=== PATIENT | male | born 1945 | race Caucasian/White ===

== ENCOUNTER 2017-05-18 14:53 | Inpatient (IN) ==
[2017-05-18 16:32] LABS: Basophils % 0.7 % (0.0-0.8); Eosinophils # 0.2 10*3/uL (0.0-0.87); Eosinophils % 3.4 % (0.00-10.9); Hematocrit 35.1 VOL% (42.0-52.0); Hemoglobin 12.5 GM/DL (14.0-18.0); Immature Granulocytes % 0.5 %; Immature Granulocytes Absolute 0.03 #; Lymphocytes % 36.1 % (21.2-54.2); Mean Corpuscular HGB Conc 35.6 GM/DL (32-36); Mean Corpuscular Hemoglobin 33 PG (27-34); Mean Corpuscular Volume 92.4 FL (87-102); Mean Platelet Volume 9.9 FL (9.6-12.0); Monocytes # 0.8 10*3/uL (0.11-0.8); Monocytes % 13.3 % (1.7-12.7); Neutrophils # 2.6 10*3/uL (1.4-7.4); Platelet Count 147 T/CUMM (130-400); Red Cell Distribution Width 15.1 % (9.3-17.3); White Blood Count 5.7 T/CUMM (4-12)
[2017-05-18 16:43] LABS: INR 3.7
--- NOTE | 2017-05-18 16:51 | CT Report ---
CT abdomen pelvis wo con Indication: Right-sided abdominal pain. History of diverticulosis. Comparison: None. Technique: CT of the abdomen and pelvis was performed without administration of intravenous contrast. The CT examination was performed using one or more of the following dose reduction techniques: Automatic exposure control, adjustment of the mA and kV according to patient size, use of acute or iterative reconstruction techniques. Findings: Lower chest: No acute findings are noted within the lower chest. Liver: The liver demonstrates no evidence of focal hepatic mass or evidence of acute pathology. Gallbladder: Large calcified gallstone measuring 13 mm is demonstrated within the neck of the gallbladder. No specific features of cholecystitis appear to be associated. Small dependent calcification is noted within the distal common bile duct image #60. This measures 1 to 2 mm in size and could reflect evidence of choledocholithiasis. Spleen: Spleen demonstrates no significant abnormality. Pancreas: Pancreas demonstrates no significant abnormality. Adrenal glands: The adrenal glands demonstrate no significant abnormalities. Kidneys: Numerous bilateral punctate calcifications are demonstrated compatible with nonobstructing nephroliths. These measure from 2 to 4 mm in size. Additional renovascular calcifications are present bilaterally. Adjacent the right UVJ there is a tiny focus of increased attenuation measuring approximately millimeter the could reflect recently passed renal stone. Correlation with urinalysis may be useful. Aorta: Moderately advanced diffuse intimal calcification of the aorta and iliac arteries is present. Inferior vena cava: Inferior vena cava is normal in appearance. Lymph nodes: No adenopathy is noted within the abdomen or pelvis. Stomach and bowel: The appearance of the stomach, duodenum, small bowel, and large bowel suggests no acute findings. No significant diverticular disease can be identified. Intrapelvic contents: No acute findings are noted within the pelvis. Osseous structures: Facet arthropathy is demonstrated bilaterally within the lower lumbar spine. No acute osseous findings are demonstrated. Soft tissues and musculature: Soft tissues and muscles show the body wall demonstrate sequelae of previous midline ciliotomy. No acute findings are suggested. Impression: 1. There is a tiny focus of increased attenuation lying adjacent the right UVJ within the urinary bladder. This possibly reflects a tiny recently passed ureteral stone versus small punctate calcification of the bladder wall. 2. Multiple bilateral nephroliths are present. 3. No diverticulosis is identified. 4. Cholelithiasis is present without specific features of cholecystitis. 05/18/2017 4:44 PM PROCEDURE INTERPRETED AT [facility] DEPARTMENT OF RADIOLOGY Final Report Signed by: Dr. Braxton Arellano
[2017-05-18 16:52] LABS: PT Patient Result 42.2 SECS
--- NOTE | 2017-05-18 16:52 | XRay Report ---
XR chest 1V portable Indication: Shortness of breath Comparison: Chest x-ray 11/01/2016 Technique: Portable AP chest was performed. Findings: The heart is borderline in size. Previous sternotomy is demonstrated. Pulmonary vasculature demonstrates no specific abnormality. Hilar structures demonstrate fairly symmetric appearance. The lungs appear clear. Bones and soft tissues demonstrate no evidence of acute pathology. Impression: 1. No evidence of acute pathology. 05/18/2017 4:49 PM PROCEDURE INTERPRETED AT [facility] DEPARTMENT OF RADIOLOGY Final Report Signed by: Dr. Braxton Arellano
[2017-05-18 16:56] LABS: Albumin 3.8 G/DL (3.4-5.0); Bilirubin,Total 0.4 MG/DL (0.2-1.0); Calcium 9.2 MG/DL (8.5-10.1); Magnesium 2.1 MG/DL (1.8-2.4); Osmolality,Calculated 291.3 MOS/KG (273-304); Potassium 4.4 MMOL/L (3.5-5.1); Total Protein 7.5 G/DL (6.4-8.3)
[2017-05-18 17:11] LABS: Apearance,Urine CLEAR (Clear); Bilirubin,Urine Negative (Negative); Blood, Urine Negative (Negative); Glucose,Urine (UA) Negative (Negative); Hyaline Casts,Urine 1 /LPF (0-3); Ketones,Urine Negative (Negative); Nitrite,Urine Negative (Negative); Protein,Urine Negative; RBC,Urine <1 /HPF (0-4); Squamous Epithelial Cell,Urine Occasional /HPF (0-10); Urine Color Yellow (Yellow); Urine Specific Gravity 1.014 (1.001-1.035); Urine Urobilinogen < 2.0 EU/DL (0.2-1.0); WBC,Urine 1 /HPF (0-6)
--- NOTE | 2017-05-18 17:29 | Emergency Department Note ---
Suzanna Sarkar Mantricia, am scribing for, and in the presence of, Cheikh Brasher MD 15:53. Anshu Sarkar Phillip K, MD, personally performed the services described in this documentation, ascribed by Ian Briseno in my presence, and it is both accurate and complete 729 . Arrival - Arrival Chief Complaint: GI Bleed/Rectal Stated Complaint: GI bleed/stomach swelling ED Nursing Triage Note: c/o bright red rectal bleeding. c/o back and abd pain. PT was drawn about 0800 this am and it was 3 Mode of Arrival: Ambulatory Limitations: No Limitations Source: Patient - History of Present Illness HPI Narrative: Pt is a 71 y/o white male arriving to ED by EMS with c/o rectal bleeding that onset this morning. He states that he initially experienced abdominal pain and back pain about 2 weeks ago. He denies having any rectal pain or seeing blood in his urine. He does report that he has kidney stones. Pt is currently taking Coumadin and reports a PMHx of Afib, 2 bowel obstructions, and diverticulitis. He has a PSHx of appendicitis and has had a colonoscopy performed by Dr. Carrillo 3 years ago. No other complaints were reported to ED. Onset (ago): hour(s) Consistency: constant Severity: mild Allergies/Adverse Reactions: Allergies Allergy/AdvReac Type Severity Reaction Status Date / Time Iodinated Contrast Media - Allergy Intermediate Chills Verified 12/01/16 09:57 Oral and Home Medications: Home Medications Medication Instructions Recorded Confirmed Type Ascorbic Acid [Vitamin C] 1,000 mg PO DAILY 04/21/16 05/18/17 History Furosemide Tab [Lasix Tab] 40 mg PO DAILY 04/21/16 05/18/17 History Gabapentin Cap/Tab [Neurontin 600 mg PO DAILY 04/21/16 05/18/17 History Cap/Tab] Glimepiride 1 mg PO DAILY 04/21/16 05/18/17 History Insulin Aspart [NovoLOG] 15 unit SUBCUT DAILY PRN 04/21/16 05/18/17 History Isosorbide Mononitrate [Isosorbide 60 mg PO QAM 04/21/16 05/18/17 History Mononitrate ER] Levothyroxine Sodium 100 mcg PO DAILY 04/21/16 05/18/17 History Losartan Potassium 100 mg PO DAILY 04/21/16 05/18/17 History Magnesium Oxide 1,600 mg PO TID 04/21/16 05/18/17 History Omeprazole 20 mg PO BID 04/21/16 05/18/17 History Sertraline HCl 25 mg PO DAILY 04/21/16 05/18/17 History Vitamin E 400 unit PO DAILY 04/21/16 05/18/17 History Warfarin Sodium 5 mg PO DAILY 04/21/16 05/18/17 History dilTIAZem HCl [Cartia XT] 180 mg PO DAILY 04/21/16 05/18/17 History Gemfibrozil 600 mg PO BID 12/01/16 05/18/17 History Metoprolol Succinate Xl [Toprol Xl] 50 mg PO DAILY 12/01/16 05/18/17 History Pravastatin [Pravachol] 40 mg PO BEDTIME 12/01/16 05/18/17 History Spironolactone [Aldactone] 12.5 mg PO DAILY 12/01/16 05/18/17 History Aspirin [Ecotrin] 81 mg PO DAILY 05/18/17 05/18/17 History Glucosamine/D3/Boswellia Jia 1 each PO DAILY 05/18/17 05/18/17 History [Osteo Bi-Flex Tablet] Insulin Detemir [Levemir] 30 unit SUBCUT BEDTIME 05/18/17 05/18/17 History Insulin Glargine [Lantus] 30 unit SUBCUT BEDTIME 05/18/17 05/18/17 History Ranitidine Tab [Zantac Tab] 75 mg PO DAILY 05/18/17 05/18/17 History Review of System - Review of System Constitutional: Absent: chills, diaphoresis, fever Respiratory: Absent: cough Gastrointestinal: Present: abdominal pain. Absent: nausea, vomiting, diarrhea Genitourinary male: Present: other (rectal bleeding). Absent: urgency Musculoskeletal: Present: back pain. Absent: arm pain, leg pain, neck pain Medical,Surgical,& Family Hx - Medical History Cardio: History of: Cardiac Dysrhythmia (HISTORY OF A-FIB), CHF, CAD, Hypertension, [place] No history of: Aneurysm, Cerebrovascular Disease, Congenital Heart Disease, Pacemaker, PVD, Cardiovascular Problems Comment Only: Valvular Heart Disease (? Heart valve - seeing Dr. Burns for this) Psychological: History of: Depression No history of: Anxiety Disorders, ADHD, Behavior Problems, Bipolar Disorder, Previous Suicide Attempt, Psychiatric/Substance Abuse Tx, Schizophrenia, Violent Behavior, Psychiatric Problems Neurology: No history of: Brain Aneurysm, Cerebral Hemorrhage, Cerebrovascular Accident , Cerebral Palsy, Dementia, Migraine, Multiple Sclerosis, Parkinson's Disease, Peripheral Neuropathy, Seizures, TIA, Vertigo, Neurologocal Cancer HEENT: History of: Eye Problem (Wears glasses) No history of: Ear Problem, Dental Problems, Glaucoma, Oral Cancer, HEENT Problems Endocrine: History of: Diabetes Mellitus (IDDM), Dyslipidemia, Thyroid Disorder (TAKES THYROID MEDICINE) No history of: Endocrine Problems Rheumatology: No history of;: Fibromyalgia, Gout, Myasthenia Gravis, Psoriasis, Rheumatoid Arthritis, Sjogrens, Systemic Lupus Erythematosus, Rheumatological Problems Respiratory: History of: Asthma, Obstructive Sleep Apnea (SLEEPS WITH BIPAP), Pneumonia No history of: Bronchitis, COPD, Intubation, Pulmonary Embolism, Pulmonary Hypertension, Lung Cancer, Respiratory Problems Renal: No history of: Renal (Kidney) Cancer, Dialysis, Renal Failure, Renal Problems Genitourinary: History of: Kidney Stones, Prostate Problems No history of: Bladder Problem, Recurring Urinary Tract Infections, Genitourinary Cancer, Problems Gastrointestinal: History of: Bowel Obstruction, Diverticulitis/ Diverticulosis (PRESENT), GERD, Hemorrhoids, Polyps, 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), GI Problems No history of: Clostridium Difficile, Crohn's Disease, Esophageal Varices, Gastrointestinal Bleed, Hematochezia, Hepatitis, Liver Problems, Pancreatitis, Gastrointestinal Cancer Musculoskeletal: History of: Back/Neck Problems (Neck pain; bone spurs), Musculoskeletal Problems (Arthritis) No history of: Amputation, Degenerative Disk Disease, Herniated Disk, Osteoporosis, Musculoskeletal Cancer Hematology: No history of: Blood Transfusion Reaction Other: History of: Cancer (SKIN CANCER), Skin Problems (SKIN CANCER) No history of: Anesthesia Reactions, Anaphylaxis, Eczema, HIV, Malignant Hyperthermia, MRSA, Vancomycin-Resistant Enterococci, Miscellaneous Medical Problems - Surgical History Cardiac Surgeries: Sugical HX of: Cardiac Catheterization (4 CATH IN THE PAST), Cardiac Surgery Patient Denies: Femoral-Popliteal Bypass Graft, Carotid Endarterectomy, Internal Defibrillator, Vascular Access Devices Thoracic Surgeries: Patient denies;: Kidney (Renal Surgery), Lithotripsy, Nephrectomy, Organ Transplant, Lobectomy Neurologic Surgeries: Patient denies: Brain Aneurysm, Cerebral Hemorrhage, Neurologic Surgery HEENT Surgeries: Surgical HX of: Eye Surgery (Cataract removal bilaterally) Patient denies: Carotid Endarterectomy, Thyroid Surgery, Tonsilectomy & Adenoidectomy Abdominal Surgeries: Surgical HX of: Abdominal Surgery, Appendectomy, Colonoscopy, EGD, Hernia Repair (2X AROUND 29 YEARS OLD IN THE PAST) Patient denies: Cholecystectomy (Gallstone), Gastric Bypass Surgery, Splenectomy Reproductive Surgeries: Patient denies;: Cystoscopy, Genitourinary Surgery, Prostate Surgery Orthopedic Surgeries: Patient denies;: Implanted Devices, Orthopedic Surgery, Spinal Surgery, Total Hip Replacement, Total Knee Replacement - Family History Family History: Reports;: Family Anesthesia Reaction (GREAT GRANDCHILD ALLERGIC REACTION), Family Heart Disease (MOTHER, GRANDMOTHER, GRANDFATHER), Family Hypertension (MOTHER), Family Stroke (GRANDFATHER) Denies;: Family Cancer, Family Diabetes (MOTHER SIDE OF FAMILY AND FATHER), Family Psychiatric Problems - Social History Smoking Status: Never smoker Frequency of Alcohol Use: None Type of Drug Use: None Exam Vital Signs: Vital Signs Temperature 98.1 F 05/18/17 15:01 Pulse Rate 79 05/18/17 15:01 Respiratory Rate 18 05/18/17 15:01 Blood Pressure 109/52 05/18/17 15:01 O2 Sat by Pulse Oximetry 98 05/18/17 15:01 - General General appearance: alert, in no apparent distress - Head Head exam: Present: atraumatic, normocephalic, normal inspection - Eye Eye exam: Present: normal appearance, PERRL, EOMI - ENT ENT exam: Present: normal exam, normal oropharynx, mucous membranes moist, TM's normal bilaterally, normal external ear exam - Neck Neck exam: Present: normal inspection, full ROM, trachea midline. Absent: tenderness - Chest Chest inspection: Present: normal inspection, symmetric chest wall rise. Absent : tenderness - Respiratory Respiratory exam: Present: normal lung sounds bilaterally - Cardiovascular Cardiovascular exam: Present: regular rate, irregular rhythm, normal heart sounds - Abdominal Exam Abdominal exam: Present: soft, tenderness (right mid), normal bowel sounds. Absent: distention, guarding, rebound - Rectal Exam Rectal exam: Present: heme (+) stool (grossly ) - Extremities Exam Extremities exam: Present: normal inspection, full ROM, normal capillary refill. Absent: tenderness, pedal edema - Back Exam Back exam: Present: normal inspection, full ROM. Absent: tenderness - Neurological Exam Neurological exam: Present: alert, oriented X3, CN II-XII intact, normal gait, reflexes normal - Psychiatric Psychiatric exam: Present: normal affect, normal mood - Skin Skin exam: Present: warm, dry, intact, normal color Course Course Narrative: Patient discussed with Dr. Sanches. Results - Labs CBC & BMP: 05/18/17 16:14 05/18/17 16:14 Lab Results: I have reviewed the patients labs Labs: Laboratory Tests 05/18/17 05/18/17 05/18/17 16:14 16:14 16:14 Hgb 12.5 L Hct 35.1 L Alexander % (Auto) 13.3 H Chloride 111 H BUN 37 H Creatinine 1.50 H BUN/Creatinine Ratio 24.00 H Glucose 131 H Globulin 3.7 H Albumin/Globulin Ratio 1.0 L Urine Urobilinogen < 2.0 H - Diagnostic Findings Procedure: Chest x-ray: report reviewed by me (No evidence of acute pathology.) , CT Abdomen and Pelvis: report reviewed by me (1. There is a tiny focus of increased attenuation lying adjacent the right UVJ within the urinary bladder. This possibly reflects a tiny recently passed ureteral stone versus small punctate calcification of the bladder wall. 2. Multiple bilateral nephroliths are present. 3. No diverticulosis is identified. 4. Cholelithiasis is present without specific features of cholecystitis. ) Disposition Clinical Impression: Lower gastrointestinal hemorrhage, Possible right ureterolithiasis, Cholelithiasis, Probable diverticular bleed Case discussed with: patient, patient's family Disposition: Still a Patient Condition: Guarded
[2017-05-18] MEDS ORDERED: ONDANSETRON 4 MG/2 ML VIAL IV PRN (22:29)
[2017-05-18] MEDS ORDERED: ACETAMINOPHEN 325 MG TABLET PO PRN (22:29)
[2017-05-19] MEDS: DOCUSATE SODIUM 100 MG CAPSULE PO SCH ×3 (00:23→20:39)
[2017-05-19 01:43] LABS: Hematocrit 31.9 VOL% (42.0-52.0); Hemoglobin 11.4 GM/DL (14.0-18.0)
--- NOTE | 2017-05-19 02:28 | EKG Report ---
Stationary ECG Study [facility] ER Test Date: 05/18/2017 6:40:31 PM Pat Name: BASIL CASTANON Department: Room: 441 Gender: M [employer] Supervisor: : 1945 Requested by: Cheikh Kaiser Order Number: [id number] Reading MD: AGUSTINA PAUL Intervals [place] Rate: 62 P: 999 NM: 0 QRS: 56 QRSD: 119 T: 38 QT: 388 QTc: 393 Interpretive Statements ATRIAL FIBRILLATION MODERATE INTRAVENTRICULAR CONDUCTION DELAY ABNORMAL RHYTHM ECG Electronically Signed On 05-19-17 05:29:41 CDT by AGUSTINA PAUL [email or web address]
[2017-05-19 05:19] LABS: Hematocrit 32.8 VOL% (42.0-52.0); Hemoglobin 11.5 GM/DL (14.0-18.0)
[2017-05-19] MEDS ORDERED: INSULIN LISPRO 100 UNIT/ML SUBCUT PRN (07:58)
--- NOTE | 2017-05-19 08:02 | Family Practice History&Phys ---
Assessment and Plan (1) Lower gastrointestinal hemorrhage Status: Acute Assessment and plan: 05/19/2017: Dr. Carrillo has been consulted. Serial hematocrits have been ordered. He is no longer bleeding. Current Visit: Yes (2) Chronic anticoagulation Status: Acute Assessment and plan: 05/19/2017: Patient's Coumadin will be held. Is no longer bleeding so I do not think he needs reversal at this time. Current Visit: Yes History of Present Illness Chief complaint: Rectal bleeding History of present illness: Mr. Smith is a 71 year old male Patient 71-year-old gentleman presented emergency room day of admission with history of rectal bleeding. Patient told me he had 4 bloody bowel movements yesterday beginning yesterday morning. He had no syncope or presyncope associated with this. Patient states he initially had no abdominal pain but then noticed he had some pain in his rectum later yesterday afternoon. He has not had any fever or chills associated with this. Patient does have a problem with constipation and tells me he has to strain to have a bowel movement. He told me that the blood was bright red but he also thought he saw some dark blood as well. He does have a previous history of peptic ulcer disease. He denies any associated chest pain, shortness of breath or perceived palpitations. He denies any abdominal pain at present states she has not had any further bleeding since admission. Home Medications Medication Instructions Recorded Confirmed Type Ascorbic Acid [Vitamin C] 1,000 mg PO DAILY 04/21/16 05/19/17 History Furosemide Tab [Lasix Tab] 40 mg PO DAILY 04/21/16 05/19/17 History Gabapentin Cap/Tab [Neurontin 600 mg PO DAILY 04/21/16 05/19/17 History Cap/Tab] Glimepiride 1 mg PO DAILY 04/21/16 05/19/17 History Insulin Aspart [NovoLOG] 15 unit SUBCUT DAILY PRN 04/21/16 05/19/17 History Isosorbide Mononitrate [Isosorbide 60 mg PO QAM 04/21/16 05/19/17 History Mononitrate ER] Levothyroxine Sodium 100 mcg PO DAILY 04/21/16 05/19/17 History Losartan Potassium 100 mg PO DAILY 04/21/16 05/19/17 History Magnesium Oxide 1,600 mg PO TID 04/21/16 05/19/17 History Omeprazole 20 mg PO BID 04/21/16 05/19/17 History Sertraline HCl 25 mg PO DAILY 04/21/16 05/19/17 History Vitamin E 400 unit PO DAILY 04/21/16 05/19/17 History Warfarin Sodium 5 mg PO DAILY 04/21/16 05/19/17 History dilTIAZem HCl [Cartia XT] 180 mg PO DAILY 04/21/16 05/19/17 History Gemfibrozil 600 mg PO BID 12/01/16 05/19/17 History Metoprolol Succinate Xl [Toprol Xl] 50 mg PO DAILY 12/01/16 05/19/17 History Pravastatin [Pravachol] 40 mg PO BEDTIME 12/01/16 05/19/17 History Spironolactone [Aldactone] 12.5 mg PO DAILY 12/01/16 05/19/17 History Aspirin [Ecotrin] 81 mg PO DAILY 05/18/17 05/19/17 History Glucosamine/D3/Boswellia Jia 1 each PO DAILY 05/18/17 05/19/17 History [Osteo Bi-Flex Tablet] Insulin Detemir [Levemir] 30 unit SUBCUT BEDTIME 05/18/17 05/19/17 History Insulin Glargine [Lantus] 30 unit SUBCUT BEDTIME 05/18/17 05/19/17 History Ranitidine Tab [Zantac Tab] 75 mg PO DAILY 05/18/17 05/19/17 History Allergies Allergy/AdvReac Type Severity Reaction Status Date / Time Iodinated Contrast Media - Allergy Intermediate Chills Verified 12/01/16 09:57 Oral and - Constitutional Constitutional: Absent: chills, fatigue, fever(s), weakness - EENT Eyes: Absent: blurry vision, loss of vision Ears: Absent: decreased hearing, ear pain Nose, mouth and throat: Absent: dysphagia, nasal congestion, sinus pressure, sore throat - Cardiovascular Cardiovascular: Absent: chest pain at rest, dyspnea, dyspnea on exertion - Respiratory Respiratory: Absent: hemoptysis, dyspnea on exertion, wheezing - Gastrointestinal Gastrointestinal: Present: dyspepsia, hematochezia, melena. Absent: abdominal pain, bloating, diarrhea, hematemesis, odynophagia, vomiting - Genitourinary Genitourinary: Absent: dysuria, flank pain, urinary frequency - Musculoskeletal Musculoskeletal: Absent: arthralgias, back pain - Neurological Neurological: Absent: confusion, focal weakness, numbness, paresthesias - Psychiatric Psychiatric: Absent: anxiety, confusion - Endocrine Endocrine: Absent: fatigue, polydipsia, polyphagia - Hematologic/Lymphatic Hematologic/Lymphatic: Present: easy bleeding. Absent: easy bruising Medical,Surgical,& Family Hx - Medical History Cardio: History of: Cardiac Dysrhythmia (HISTORY OF A-FIB), CHF, CAD, Hypertension, [place] No history of: Aneurysm, Cerebrovascular Disease, Congenital Heart Disease, Pacemaker, PVD, Cardiovascular Problems Comment Only: Valvular Heart Disease (? Heart valve - seeing Dr. Burns for this) Psychological: History of: Depression No history of: Anxiety Disorders, ADHD, Behavior Problems, Bipolar Disorder, Previous Suicide Attempt, Psychiatric/Substance Abuse Tx, Schizophrenia, Violent Behavior, Psychiatric Problems Neurology: No history of: Brain Aneurysm, Cerebral Hemorrhage, Cerebrovascular Accident , Cerebral Palsy, Dementia, Migraine, Multiple Sclerosis, Parkinson's Disease, Peripheral Neuropathy, Seizures, TIA, Vertigo, Neurologocal Cancer HEENT: History of: Eye Problem (Wears glasses) No history of: Ear Problem, Dental Problems, Glaucoma, Oral Cancer, HEENT Problems Endocrine: History of: Diabetes Mellitus (IDDM), Dyslipidemia, Thyroid Disorder (TAKES THYROID MEDICINE) No history of: Endocrine Problems Rheumatology: No history of;: Fibromyalgia, Gout, Myasthenia Gravis, Psoriasis, Rheumatoid Arthritis, Sjogrens, Systemic Lupus Erythematosus, Rheumatological Problems Respiratory: History of: Asthma, Obstructive Sleep Apnea (SLEEPS WITH BIPAP), Pneumonia No history of: Bronchitis, COPD, Intubation, Pulmonary Embolism, Pulmonary Hypertension, Lung Cancer, Respiratory Problems Renal: No history of: Renal (Kidney) Cancer, Dialysis, Renal Failure, Renal Problems Genitourinary: History of: Kidney Stones, Prostate Problems No history of: Bladder Problem, Recurring Urinary Tract Infections, Genitourinary Cancer, Problems Gastrointestinal: History of: Bowel Obstruction, Diverticulitis/ Diverticulosis (PRESENT), GERD, Hemorrhoids, Polyps, 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), GI Problems No history of: Clostridium Difficile, Crohn's Disease, Esophageal Varices, Gastrointestinal Bleed, Hematochezia, Hepatitis, Liver Problems, Pancreatitis, Gastrointestinal Cancer Musculoskeletal: History of: Back/Neck Problems (Neck pain; bone spurs), Musculoskeletal Problems (Arthritis) No history of: Amputation, Degenerative Disk Disease, Herniated Disk, Osteoporosis, Musculoskeletal Cancer Hematology: No history of: Blood Transfusion Reaction Other: History of: Cancer (SKIN CANCER), Skin Problems (SKIN CANCER) No history of: Anesthesia Reactions, Anaphylaxis, Eczema, HIV, Malignant Hyperthermia, MRSA, Vancomycin-Resistant Enterococci, Miscellaneous Medical Problems - Surgical History Cardiac Surgeries: Sugical HX of: Cardiac Catheterization (4 CATH IN THE PAST), Cardiac Surgery Patient Denies: Femoral-Popliteal Bypass Graft, Carotid Endarterectomy, Internal Defibrillator, Vascular Access Devices Thoracic Surgeries: Patient denies;: Kidney (Renal Surgery), Lithotripsy, Nephrectomy, Organ Transplant, Lobectomy Neurologic Surgeries: Patient denies: Brain Aneurysm, Cerebral Hemorrhage, Neurologic Surgery HEENT Surgeries: Surgical HX of: Eye Surgery (Cataract removal bilaterally) Patient denies: Carotid Endarterectomy, Thyroid Surgery, Tonsilectomy & Adenoidectomy Abdominal Surgeries: Surgical HX of: Abdominal Surgery, Appendectomy, Colonoscopy, EGD, Hernia Repair (2X AROUND 29 YEARS OLD IN THE PAST) Patient denies: Cholecystectomy (Gallstone), Gastric Bypass Surgery, Splenectomy Reproductive Surgeries: Patient denies;: Cystoscopy, Genitourinary Surgery, Prostate Surgery Orthopedic Surgeries: Patient denies;: Implanted Devices, Orthopedic Surgery, Spinal Surgery, Total Hip Replacement, Total Knee Replacement - Family History Family History: Reports;: Family Anesthesia Reaction (GREAT GRANDCHILD ALLERGIC REACTION), Family Heart Disease (MOTHER, GRANDMOTHER, GRANDFATHER), Family Hypertension (MOTHER), Family Stroke (GRANDFATHER) Denies;: Family Cancer, Family Diabetes (MOTHER SIDE OF FAMILY AND FATHER), Family Psychiatric Problems - Social History Smoking Status: Never smoker Frequency of Alcohol Use: None Type of Drug Use: None Exam - Constitutional Vitals: Period Temp Pulse Resp BP Sys/Spann Pulse Ox Last 24 Hr 97.5 F-98.1 F 45-86 10-25 93-154/50-73 95-98 Exam: General: Objective patient is a well-developed white male in no acute distress. He is able to give a good history and is his usual garrulous self. HEENT: Pupils equal and reactive to light. Patent nares and airway Neck: No meningismus, adenopathy, thyromegaly. There are no auscultated carotid bruits. Cardiovascular: Regular rhythm. No murmurs or gallops Chest: Clear to auscultation without rales rhonchi wheezes. Abdomen: Soft nontender to palpation No masses, rebound, guarding or tenderness. Neuro: Cranial nerves intact and DTRs and strength symmetric in all extremities. Dermatologic: No evidence of abnormal lesions or masses. Musculoskeletal: There is no joint swelling or tenderness or deformity. Extremities: Is no calf swelling or tenderness. Results - Labs CBC & BMP: 05/19/17 04:41 05/18/17 16:14 Lab Results: I have reviewed the past 24 hour labs Quality Measures - Stroke Symptom Onset Unknown: No
[2017-05-19] MEDS ORDERED: PANTOPRAZOLE 40 MG TABLET PO SCH (09:00)
[2017-05-19] MEDS ORDERED: GABAPENTIN 600 MG TABLET PO SCH (09:00)
--- NOTE | 2017-05-19 09:29 | Gastrointestinal Consult Note ---
<Amber Apodaca - Last Filed: 05/19/17 09:20> Assessment and Plan (1) Rectal bleed Status: Acute Assessment and plan: 05/19-sudden onset of bright red rectal bleeding w/o abdominal pain or other associated symptoms. INR 3.7 with last dose Coumadin Wednesday. CT of abdomen noted as below. Endoscopy noted as below. Monitor serial HH. Plan endoscopy to further evaluate once INR is 1.8 or less. Plan and addendum to follow by Dr Carrillo. Current Visit: Yes History of Present Illness Chief complaint: Rectal bleed History of present illness: Mr. Smith is a 71 year old male who was admitted to the hospital on yesterday following onset of rectal bleeding. Patient is a fairly good historian however is at bedside and contributes to information. Chart review also done. Patient states that approximately 2 weeks ago he began having some lower back pain primarily on the right flank. States that the pain seemed to be exacerbated by ambulation and walking uphill. He states that on yesterday the pain began to radiate around to his lower abdomen and down into his groin. He states that he has a history of constipation and has to strain most of the time with a bowel movement however on yesterday, following a bout of constipation, he had a large solid stool which he states require considerable amount of straining which was then followed by loose stools. Patient noted at that time that he had a moderate amount of bright red blood noted in the commode and mixed in with the stool. He also states he has some dark red clots mixed with this as well. He does recall but over the last several weeks he is noted that his stools have become darker in color than from his baseline. He does have a history of hemorrhoids and a history of varying episodes of constipation and diarrhea over the last several years. He states that he has never had a rectal bleed in the past. Patient states that he did sided to come to the emergency room yesterday afternoon for further evaluation. He denies any recent weight loss. Patient denies any NSAID use. He denies any dysphagia, increased GERD, or dyspepsia. Denies any associated nausea or vomiting. Patient does take Coumadin for history of atrial fibrillation and on admission INR was noted to be elevated at 3.7. He states his last dose of Coumadin was on Marc night. Patient's last EGD was in September of last year with findings of GERD and duodenitis. He is unable to recall exactly when his last colonoscopy was but states that he was due coming up this year for repeat. He cannot recall the findings of his last colonoscopy as well. On admission he had a CT of abdomen without contrast with no acute findings noted however mention of possible passed ureteral stone, multiple bilateral nephroliths, cholelithiasis without cholecystitis and no mention of diverticulosis or diverticulitis. H/H . Home Medications Medication Instructions Recorded Confirmed Type Ascorbic Acid [Vitamin C] 1,000 mg PO DAILY 04/21/16 05/19/17 History Furosemide Tab [Lasix Tab] 40 mg PO DAILY 04/21/16 05/19/17 History Gabapentin Cap/Tab [Neurontin 600 mg PO DAILY 04/21/16 05/19/17 History Cap/Tab] Glimepiride 1 mg PO DAILY 04/21/16 05/19/17 History Insulin Aspart [NovoLOG] 15 unit SUBCUT DAILY PRN 04/21/16 05/19/17 History Isosorbide Mononitrate [Isosorbide 60 mg PO QAM 04/21/16 05/19/17 History Mononitrate ER] Levothyroxine Sodium 100 mcg PO DAILY 04/21/16 05/19/17 History Losartan Potassium 100 mg PO DAILY 04/21/16 05/19/17 History Magnesium Oxide 1,600 mg PO TID 04/21/16 05/19/17 History Omeprazole 20 mg PO BID 04/21/16 05/19/17 History Sertraline HCl 25 mg PO DAILY 04/21/16 05/19/17 History Vitamin E 400 unit PO DAILY 04/21/16 05/19/17 History Warfarin Sodium 5 mg PO DAILY 04/21/16 05/19/17 History dilTIAZem HCl [Cartia XT] 180 mg PO DAILY 04/21/16 05/19/17 History Gemfibrozil 600 mg PO BID 12/01/16 05/19/17 History Metoprolol Succinate Xl [Toprol Xl] 50 mg PO DAILY 12/01/16 05/19/17 History Pravastatin [Pravachol] 40 mg PO BEDTIME 12/01/16 05/19/17 History Spironolactone [Aldactone] 12.5 mg PO DAILY 12/01/16 05/19/17 History Aspirin [Ecotrin] 81 mg PO DAILY 05/18/17 05/19/17 History Glucosamine/D3/Boswellia Jia 1 each PO DAILY 05/18/17 05/19/17 History [Osteo Bi-Flex Tablet] Insulin Detemir [Levemir] 30 unit SUBCUT BEDTIME 05/18/17 05/19/17 History Insulin Glargine [Lantus] 30 unit SUBCUT BEDTIME 05/18/17 05/19/17 History Ranitidine Tab [Zantac Tab] 75 mg PO DAILY 05/18/17 05/19/17 History Celecoxib [Celebrex] 200 mg PO DAILY 05/19/17 05/19/17 History Allergies Allergy/AdvReac Type Severity Reaction Status Date / Time Iodinated Contrast Media - Allergy Intermediate Chills Verified 12/01/16 09:57 Oral and Medical,Surgical,& Family Hx - Medical History Cardio: History of: Cardiac Dysrhythmia (HISTORY OF A-FIB), CHF, CAD, Hypertension, NE No history of: Aneurysm, Cerebrovascular Disease, Congenital Heart Disease, Pacemaker, PVD, Cardiovascular Problems Comment Only: Valvular Heart Disease (? Heart valve - seeing Dr. Burns for this) Psychological: History of: Depression No history of: Anxiety Disorders, ADHD, Behavior Problems, Bipolar Disorder, Previous Suicide Attempt, Psychiatric/Substance Abuse Tx, Schizophrenia, Violent Behavior, Psychiatric Problems Neurology: No history of: Brain Aneurysm, Cerebral Hemorrhage, Cerebrovascular Accident , Cerebral Palsy, Dementia, Migraine, Multiple Sclerosis, Parkinson's Disease, Peripheral Neuropathy, Seizures, TIA, Vertigo, Neurologocal Cancer HEENT: History of: Eye Problem (Wears glasses) No history of: Ear Problem, Dental Problems, Glaucoma, Oral Cancer, HEENT Problems Endocrine: History of: Diabetes Mellitus (IDDM), Dyslipidemia, Thyroid Disorder (TAKES THYROID MEDICINE) No history of: Endocrine Problems Rheumatology: No history of;: Fibromyalgia, Gout, Myasthenia Gravis, Psoriasis, Rheumatoid Arthritis, Sjogrens, Systemic Lupus Erythematosus, Rheumatological Problems Respiratory: History of: Asthma, Obstructive Sleep Apnea (SLEEPS WITH BIPAP), Pneumonia No history of: Bronchitis, COPD, Intubation, Pulmonary Embolism, Pulmonary Hypertension, Lung Cancer, Respiratory Problems Renal: No history of: Renal (Kidney) Cancer, Dialysis, Renal Failure, Renal Problems Genitourinary: History of: Kidney Stones, Prostate Problems No history of: Bladder Problem, Recurring Urinary Tract Infections, Genitourinary Cancer, Problems Gastrointestinal: History of: Bowel Obstruction, Diverticulitis/ Diverticulosis (PRESENT), GERD, Hemorrhoids, Polyps, 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), GI Problems No history of: Clostridium Difficile, Crohn's Disease, Esophageal Varices, Gastrointestinal Bleed, Hematochezia, Hepatitis, Liver Problems, Pancreatitis, Gastrointestinal Cancer Musculoskeletal: History of: Back/Neck Problems (Neck pain; bone spurs), Musculoskeletal Problems (Arthritis) No history of: Amputation, Degenerative Disk Disease, Herniated Disk, Osteoporosis, Musculoskeletal Cancer Hematology: No history of: Blood Transfusion Reaction Other: History of: Cancer (SKIN CANCER), Skin Problems (SKIN CANCER) No history of: Anesthesia Reactions, Anaphylaxis, Eczema, HIV, Malignant Hyperthermia, MRSA, Vancomycin-Resistant Enterococci, Miscellaneous Medical Problems - Surgical History Cardiac Surgeries: Sugical HX of: Cardiac Catheterization (4 CATH IN THE PAST), Cardiac Surgery Patient Denies: Femoral-Popliteal Bypass Graft, Carotid Endarterectomy, Internal Defibrillator, Vascular Access Devices Thoracic Surgeries: Patient denies;: Kidney (Renal Surgery), Lithotripsy, Nephrectomy, Organ Transplant, Lobectomy Neurologic Surgeries: Patient denies: Brain Aneurysm, Cerebral Hemorrhage, Neurologic Surgery HEENT Surgeries: Surgical HX of: Eye Surgery (Cataract removal bilaterally) Patient denies: Carotid Endarterectomy, Thyroid Surgery, Tonsilectomy & Adenoidectomy Abdominal Surgeries: Surgical HX of: Abdominal Surgery, Appendectomy, Colonoscopy, EGD, Hernia Repair (2X AROUND 30 YEARS OLD IN THE PAST) Patient denies: Cholecystectomy (Gallstone), Gastric Bypass Surgery, Splenectomy Reproductive Surgeries: Patient denies;: Cystoscopy, Genitourinary Surgery, Prostate Surgery Orthopedic Surgeries: Patient denies;: Implanted Devices, Orthopedic Surgery, Spinal Surgery, Total Hip Replacement, Total Knee Replacement - Family History Family History: Reports;: Family Anesthesia Reaction (GREAT GRANDCHILD ALLERGIC REACTION), Family Heart Disease (MOTHER, GRANDMOTHER, GRANDFATHER), Family Hypertension (MOTHER), Family Stroke (GRANDFATHER) Denies;: Family Cancer, Family Diabetes (MOTHER SIDE OF FAMILY AND FATHER), Family Psychiatric Problems - Social History Smoking Status: Never smoker Frequency of Alcohol Use: None Type of Drug Use: None 12 point system: reviewed and no additional remarkable complaints except as stated - Constitutional Constitutional: Present: as per HPI - EENT Eyes: Present: as per HPI Ears: Present: as per HPI Nose, mouth and throat: Present: as per HPI - Cardiovascular Cardiovascular: Present: as per HPI - Respiratory Respiratory: Present: as per HPI - Gastrointestinal Gastrointestinal: Present: as per HPI, abdominal pain (Lower abdominal), heartburn, hematochezia, melena - Genitourinary Genitourinary: Present: as per HPI - Musculoskeletal Musculoskeletal: Present: as per HPI, back pain - Neurological Neurological: Present: as per HPI - Psychiatric Psychiatric: Present: as per HPI - Endocrine Endocrine: Present: as per HPI - Hematologic/Lymphatic Hematologic/Lymphatic: Present: as per HPI Exam - Constitutional Vitals: Period Temp Pulse Resp BP Sys/Spann Pulse Ox Last 24 Hr 97.5 F-98.1 F 43-86 10-25 93-154/50-79 94-98 General appearance: normal weight, no acute distress - Head Head exam: Present: normal inspection, normocephalic - Eye Eye exam: Present: other (Lids and conjunctivae are unremarkable). Absent: scleral icterus - ENT ENT exam: Present: normal exam, normal oropharynx - Neck Neck exam: Present: normal inspection - Respiratory Respiratory exam: Present: clear to auscultation bilaterally. Absent: rales, rhonchi, wheezes - Cardiovascular Cardiovascular exam: Present: regular rate and rhythm. Absent: diastolic murmur , JVD, systolic murmur - GI/Abdominal GI/Abdominal exam: Present: normal bowel sounds, soft. Absent: ascites, distended, mass, organomegaly, tenderness - Extremities Exam Extremities exam: Present: normal inspection, full ROM - Back Exam Back exam: Present: normal inspection - Neurological Exam Neurological exam: Present: alert, oriented X3 - Psychiatric Psychiatric exam: Present: normal affect, normal mood - Skin Skin exam: Present: normal color, warm, dry Results - Labs CBC & BMP: 05/19/17 04:41 05/18/17 16:14 Lab Results: I have reviewed the past 24 hour labs Quality Measures - Stroke Symptom Onset Unknown: No <Kenny Carrillo - Last Filed: 05/19/17 19:31> History of Present Illness History of present illness: Mr. Smith is a 71 year old male Exam - Constitutional Vitals: Period Temp Pulse Resp BP Sys/Spann Pulse Ox Last 24 Hr 97.3 F-97.7 F 43-92 19-20 117-154/65-92 94-98 Results - Labs CBC & BMP: 05/19/17 16:24 05/18/17 16:14
[2017-05-19 10:06] LABS: Hematocrit 35.5 VOL% (42.0-52.0); Hemoglobin 12.6 GM/DL (14.0-18.0)
[2017-05-19] MEDS: GLUCOSAMINE 500 MG TABLET PO SCH (10:17)
[2017-05-19] MEDS: SERTRALINE 25 MG TABLET PO SCH (10:17)
[2017-05-19] MEDS: GLIMEPIRIDE 2 MG TABLET PO SCH (10:17)
[2017-05-19] MEDS: METOPROLOL SUCCINATE XL 50 MG TABLET PO SCH (10:18)
[2017-05-19] MEDS: LEVOTHYROXINE 100 MCG TABLET PO SCH (10:19)
[2017-05-19] MEDS: FUROSEMIDE 40 MG TABLET PO SCH (10:19)
[2017-05-19] MEDS: PANTOPRAZOLE 40 MG TABLET PO SCH ×2 (10:20→20:40)
[2017-05-19] MEDS: SPIRONOLACTONE 25 MG TABLET PO SCH (10:21)
[2017-05-19] MEDS: VITAMIN E 400 UNIT CAPSULE PO SCH (10:22)
[2017-05-19] MEDS: ASCORBIC ACID 500 MG TABLET PO SCH (10:22)
[2017-05-19] MEDS: MAGNESIUM OXIDE 400 MG TABLET PO SCH ×3 (10:23→20:39)
[2017-05-19] MEDS: ISOSORBIDE MONONITRATE 60 MG TABLET PO SCH (10:24)
[2017-05-19] MEDS: DILTIAZEM CD 180 MG CAPSULE PO SCH (10:26)
[2017-05-19] MEDS: GEMFIBROZIL 600 MG TABLET PO SCH ×2 (10:26→20:39)
[2017-05-19] MEDS: LOSARTAN 50 MG TABLET PO SCH (10:27)
[2017-05-19] MEDS: FAMOTIDINE 20 MG TABLET PO SCH (10:39)
[2017-05-19] MEDS: CELECOXIB 200 MG CAPSULE PO SCH (15:10)
[2017-05-19 16:33] LABS: Hematocrit 35.5 VOL% (42.0-52.0); Hemoglobin 12.4 GM/DL (14.0-18.0)
[2017-05-19] MEDS: GABAPENTIN 300 MG CAPSULE PO SCH ×2 (18:16→20:40)
[2017-05-19] MEDS: PRAVASTATIN 40 MG TABLET PO SCH (20:40)
[2017-05-20 00:01] LABS: Hematocrit 34.5 VOL% (42.0-52.0); Hemoglobin 12.4 GM/DL (14.0-18.0)
[2017-05-20] MEDS: INSULIN GLARGINE 100 UNIT/ML SUBCUT SCH ×2 (00:02→23:24)
[2017-05-20] MEDS: LEVOTHYROXINE 100 MCG TABLET PO SCH (06:21)
[2017-05-20] MEDS: NEOMYCIN/POLYMYXIN/BACITRACIN OINT 0.9 GM PACK TOP SCH ×3 (06:21→22:00)
[2017-05-20 06:36] LABS: INR 1.7; PT Patient Result 18.5 SECS
--- NOTE | 2017-05-20 07:29 | Family Practice Progress Note ---
Family Practice - PN: Subj Interval history: Patient is doing well this morning states he is not having any abdominal pain. He did have some bloody bowel movements yesterday again. He denies any rectal pain this morning. He is not having any nausea vomiting or diarrhea. He is scheduled for EGD today and C scope tomorrow. His INR is down to 1.7 and his hematocrit remained stable. Exam (Progress Note) - Constitutional Vitals: Period Temp Pulse Resp BP Sys/Spann Pulse Ox Last 24 Hr 97.0 F-99.1 F 42-92 18-20 115-135/54-92 94-98 Exam: Objectively well-developed white male no acute distress sitting up in chair and watching television. He denies any abdominal pain and looks comfortable at rest. Cardiovascular: Heart rates regular without murmurs or gallops. Respiratory: Lungs clear to auscultation bilaterally. Abdomen: Abdomen soft and nontender to palpation. Results - Labs CBC & BMP: 05/19/17 23:45 05/18/17 16:14 Lab Results: I have reviewed the past 24 hour labs Assessment and Plan (1) Lower gastrointestinal hemorrhage Status: Acute Assessment and plan: 05/19/2017: Dr. Carrillo has been consulted. Serial hematocrits have been ordered. He is no longer bleeding. 05/20/2017: Patient continues to have bleeding. EGD today C scope in the morning. Current Visit: Yes (2) Chronic anticoagulation Status: Acute Assessment and plan: 05/19/2017: Patient's Coumadin will be held. Is no longer bleeding so I do not think he needs reversal at this time. 05/20/2017: INR is down to 1.7 this morning. Current Visit: Yes Quality Measures - Stroke Symptom Onset Unknown: No
[2017-05-20 07:35] LABS: Hematocrit 35.7 VOL% (42.0-52.0)
[2017-05-20 07:41] LABS: Basophils % 0.8 % (0.0-0.8); Eosinophils # 0.2 10*3/uL (0.0-0.87); Eosinophils % 4.8 % (0.00-10.9); Hematocrit 35.5 VOL% (42.0-52.0); Immature Granulocytes % 0.3 %; Immature Granulocytes Absolute 0.01 #; Lymphocytes # 1.1 10*3/uL (1.4-4.0); Lymphocytes % 31.8 % (21.2-54.2); Mean Corpuscular HGB Conc 36.6 GM/DL (32-36); Mean Corpuscular Hemoglobin 33 PG (27-34); Mean Corpuscular Volume 89.6 FL (87-102); Mean Platelet Volume 9.9 FL (9.6-12.0); Monocytes # 0.4 10*3/uL (0.11-0.8); Monocytes % 10.4 % (1.7-12.7); Neutrophils # 1.8 10*3/uL (1.4-7.4); Neutrophils % 51.9 % (38.7-73.9); Platelet Count 153 T/CUMM (130-400); Red Blood Count 3.96 MC/CUMM (3.8-5.5); Red Cell Distribution Width 14.8 % (9.3-17.3); White Blood Count 3.6 T/CUMM (4-12)
[2017-05-20] MEDS ORDERED: BISACODYL 5 MG TABLET PO ONE (12:00)
[2017-05-20] MEDS ORDERED: LIDOCAINE 2% 5 ML VIAL ONE (12:18)
[2017-05-20] MEDS ORDERED: PROPOFOL 200 MG/20 ML VIAL IV ONE (12:18)
--- NOTE | 2017-05-20 12:23 | History and Physical Update ---
History and Physical Update - Physical Exam Mental Status: alert and oriented Heart: regular rate and rhythm Lung: clear to auscultation Abdomen: within normal limits Vitals: within normal limits
--- NOTE | 2017-05-20 12:29 | Operative Note ---
Date of procedure: 05/20/17 Pre-op diagnosis: Acute GI bleed on chronic anticoagulation Procedure: EGD 71-year-old gentleman admitted with acute GI bleed with elevated INR from chronic anticoagulation now for upper endoscopy to further evaluate. Informed consent was obtained. He was sedated with MAC anesthesia per anesthesia protocol. Patient placed in left lateral decubitus position the Olympus flexible video upper endoscope was inserted into the oral cavity under direct vision the esophagus was intubated. Findings: Esophagus-diffuse candidal esophagitis. Otherwise unremarkable. Small hiatal hernia was observed. No varices no esophageal stricture no Sandoval's was identified. Stomach-normal insufflation normal mucosa to direct retroflexed views of the body, fundus, cardia and antrum the stomach. Pylorus-normal Duodenum-normal from the bulb of the duodenum to the third portion of the duodenum. No bloodstained mucosa no AVMs no bleeding site identified. The procedure terminated placed our procedure well his discharge recovery in good condition. Postop diagnosis: 1. Candidal esophagitis-add Diflucan daily for 5 days 2. Hiatal hernia-continue PPI and antireflux as needed. 3. Proceed with colonoscopy in a.m. for further evaluation of source of his rectal bleeding. Anesthesia: MAC Surgeon / Physician: Kenny Carrillo Estimated blood loss: none Specimens: none sent Condition: stable Disposition: post procedure unit Results - Labs CBC & BMP: 05/20/17 07:20 05/18/17 16:14 Discharge Plan - Discharge Medications No Action Omeprazole 20 mg PO BID Gabapentin Cap/Tab [Neurontin Cap/Tab] 600 mg PO DAILY Furosemide Tab [Lasix Tab] 40 mg PO DAILY dilTIAZem HCl [Cartia XT] 180 mg PO DAILY Sertraline HCl 25 mg PO DAILY Losartan Potassium 100 mg PO DAILY Levothyroxine Sodium 100 mcg PO DAILY Insulin Aspart [NovoLOG] 15 unit SUBCUT DAILY PRN PRN Reason: Glucose Management Vitamin E 400 unit PO DAILY Ascorbic Acid [Vitamin C] 1,000 mg PO DAILY Glimepiride 1 mg PO DAILY Warfarin Sodium 5 mg PO DAILY Magnesium Oxide 1,600 mg PO TID Isosorbide Mononitrate [Isosorbide Mononitrate ER] 60 mg PO QAM Metoprolol Succinate Xl [Toprol Xl] 50 mg PO DAILY Pravastatin [Pravachol] 40 mg PO BEDTIME Spironolactone [Aldactone] 12.5 mg PO DAILY Aspirin [Ecotrin] 81 mg PO DAILY Ranitidine Tab [Zantac Tab] 75 mg PO DAILY Insulin Detemir [Levemir] 30 unit SUBCUT BEDTIME Gemfibrozil 600 mg PO BID Glucosamine/D3/Boswellia Jia [Osteo Bi-Flex Tablet] 1 each PO DAILY Insulin Glargine [Lantus] 30 unit SUBCUT BEDTIME Celecoxib [Celebrex] 200 mg PO DAILY - Follow Up or Referral - Forms/Instructions
[2017-05-20] MEDS ORDERED: FLUCONAZOLE 100 MG TABLET PO SCH (12:30)
--- NOTE | 2017-05-20 12:37 | Anesthesia Post-Op ---
Anesthesia Post OP - Post Ansesthetic Evaluation Patient seen in post op: Yes Resp: within normal limits CV: within normal limits Mental: within normal limits Temp: within normal limits [id number]: within normal limits Nausea and Vomiting: within normal limits Pain: within normal limits
[2017-05-20] MEDS: GABAPENTIN 300 MG CAPSULE PO SCH ×3 (13:38→21:46)
[2017-05-20] MEDS: MAGNESIUM OXIDE 400 MG TABLET PO SCH ×3 (13:38→21:47)
[2017-05-20] MEDS ORDERED: SILVER SULFADIAZINE 1% CREAM 25 GM TUBE TOP SCH (15:30)
[2017-05-20] MEDS: DOCUSATE SODIUM 100 MG CAPSULE PO SCH ×2 (15:48→21:47)
[2017-05-20] MEDS: GLIMEPIRIDE 2 MG TABLET PO SCH (15:50)
[2017-05-20] MEDS: SERTRALINE 25 MG TABLET PO SCH (16:11)
[2017-05-20] MEDS: PANTOPRAZOLE 40 MG TABLET PO SCH ×2 (16:11→21:47)
[2017-05-20] MEDS: FAMOTIDINE 20 MG TABLET PO SCH (16:12)
[2017-05-20] MEDS: CELECOXIB 200 MG CAPSULE PO SCH (16:12)
[2017-05-20] MEDS: VITAMIN E 400 UNIT CAPSULE PO SCH (16:15)
[2017-05-20] MEDS: SPIRONOLACTONE 25 MG TABLET PO SCH (16:16)
[2017-05-20] MEDS: GLUCOSAMINE 500 MG TABLET PO SCH (16:16)
[2017-05-20] MEDS: ASCORBIC ACID 500 MG TABLET PO SCH (16:16)
[2017-05-20] MEDS: METOPROLOL SUCCINATE XL 50 MG TABLET PO SCH (16:18)
[2017-05-20] MEDS: GEMFIBROZIL 600 MG TABLET PO SCH ×2 (16:18→21:47)
[2017-05-20] MEDS: DILTIAZEM CD 180 MG CAPSULE PO SCH (16:19)
[2017-05-20] MEDS: LOSARTAN 50 MG TABLET PO SCH (16:19)
[2017-05-20] MEDS: ISOSORBIDE MONONITRATE 60 MG TABLET PO SCH (16:19)
[2017-05-20 16:35] LABS: Hematocrit 37.5 VOL% (42.0-52.0); Hemoglobin 13.6 GM/DL (14.0-18.0)
[2017-05-20] MEDS: FUROSEMIDE 40 MG TABLET PO SCH (16:57)
[2017-05-20] MEDS ORDERED: POLYETHYLENE GLYCOL POWDER 255 GM BOTTLE PO ONE (18:00)
[2017-05-20] MEDS: PRAVASTATIN 40 MG TABLET PO SCH (21:47)
[2017-05-20 22:59] LABS: Hematocrit 34.2 VOL% (42.0-52.0); Hemoglobin 12.5 GM/DL (14.0-18.0)
--- NOTE | 2017-05-21 05:48 | Family Practice Progress Note ---
Family Practice - PN: Subj Interval history: Patient is doing well this morning and see no further bleeding. He states his prep seems to be successful. He is not having any abdominal pain or discomfort. He is scheduled for C scope this morning and can probably go home afterwards depending on the results. Exam (Progress Note) - Constitutional Vitals: Period Temp Pulse Resp BP Sys/Spann Pulse Ox Last 24 Hr 96.7 F-98.2 F 45-77 16-20 103-135/51-88 95-100 Exam: Objectively well-developed white male no acute distress. Patient states she is ready to get his test over and if possible go home today.. Cardiovascular: Heart rates regular without murmurs or gallops. Respiratory: Lungs clear to auscultation bilaterally. Abdomen: Abdomen soft and nontender to palpation. Results - Labs CBC & BMP: 05/20/17 22:30 05/18/17 16:14 Lab Results: I have reviewed the past 24 hour labs Assessment and Plan (1) Lower gastrointestinal hemorrhage Status: Acute Assessment and plan: 05/19/2017: Dr. Carrillo has been consulted. Serial hematocrits have been ordered. He is no longer bleeding. 05/20/2017: Patient continues to have bleeding. EGD today C scope in the morning. 05/21/2017: He has had no further bleeding. Current Visit: Yes (2) Chronic anticoagulation Status: Acute Assessment and plan: 05/19/2017: Patient's Coumadin will be held. Is no longer bleeding so I do not think he needs reversal at this time. 05/20/2017: INR is down to 1.7 this morning. 05/21/2017: Patient can restart Coumadin after his C scope today if the findings dictate this possible. Current Visit: Yes Quality Measures - Stroke Symptom Onset Unknown: No
[2017-05-21 06:24] LABS: Basophils % 0.7 % (0.0-0.8); Eosinophils # 0.1 10*3/uL (0.0-0.87); Eosinophils % 3.2 % (0.00-10.9); Hematocrit 34.5 VOL% (42.0-52.0); Hemoglobin 12.3 GM/DL (14.0-18.0); Immature Granulocytes % 0.2 %; Immature Granulocytes Absolute 0.01 #; Lymphocytes # 1.4 10*3/uL (1.4-4.0); Mean Corpuscular HGB Conc 35.7 GM/DL (32-36); Mean Corpuscular Hemoglobin 32 PG (27-34); Mean Corpuscular Volume 89.6 FL (87-102); Mean Platelet Volume 9.6 FL (9.6-12.0); Monocytes # 0.6 10*3/uL (0.11-0.8); Monocytes % 14.1 % (1.7-12.7); Neutrophils # 2.2 10*3/uL (1.4-7.4); Neutrophils % 49.8 % (38.7-73.9); Platelet Count 168 T/CUMM (130-400); Red Blood Count 3.85 MC/CUMM (3.8-5.5); Red Cell Distribution Width 14.9 % (9.3-17.3); White Blood Count 4.4 T/CUMM (4-12)
[2017-05-21 06:27] LABS: Hematocrit 34.2 VOL% (42.0-52.0); Hemoglobin 12.2 GM/DL (14.0-18.0)
[2017-05-21 06:32] LABS: INR 1.5; PT Patient Result 16.6 SECS
[2017-05-21] MEDS ORDERED: PROPOFOL 200 MG/20 ML VIAL IV ONE (10:55)
[2017-05-21] MEDS ORDERED: LIDOCAINE 1% 5 ML VIAL ONE (10:55)
--- NOTE | 2017-05-21 11:21 | Anesthesia Post-Op ---
Anesthesia Post OP - Post Ansesthetic Evaluation Patient seen in post op: Yes Resp: within normal limits CV: within normal limits Mental: within normal limits Temp: within normal limits [id number]: within normal limits Nausea and Vomiting: within normal limits Pain: within normal limits
--- NOTE | 2017-05-21 11:21 | Operative Note ---
Date of procedure: 05/21/17 Pre-op diagnosis: Rectal bleeding with coagulopathy Procedure: Colonoscopy with polypectomy 71-year-old gentleman admitted with acute GI bleeding on Coumadin with elevated INR now for colonoscopy to further evaluate. Informed symptoms obtained patient. He was sedated with MAC anesthesia per anesthesia protocol. Patient placed left lateral decubitus position digital exam was normal. the Olympus flexible video colonoscope was advanced into the anal canal and advanced under direct vision to the pole of the cecum identified by ileocecal valve appendiceal orifice. Redundancy of the colon was noted. Withdrawal time 7 minutes Prep fair with limited visibility due to retained stool Findings: Cecum-identify the ileocecal valve appendiceal orifice Terminal ileum-normal Ascending colon-normal exam limited by prep Transverse colon-normal exam limited by prep Descending colon mild diverticulosis Sigmoid colon moderate diverticulosis Rectum 5 mm polyp hot biopsy fulgurated otherwise normal to direct retroflexed views 2+ hemorrhoids were seen not bleeding. The procedure terminated placed our procedure well his discharge recovery in good condition. Postop diagnosis: 1. Colon polyp follow-up polyp path repeat colonoscopy in 3 years with less than ideal prep 2. Diverticulosis coli-maintain adequate fiber and fluid intake suspect this is a source of his rectal bleeding given his coagulopathy. 3. We try to keep his INR between 2 and 2.5 when Coumadin is restarted. 4. Okay to go from my standpoint call if we can be of further assistance. Anesthesia: MAC Surgeon / Physician: Kenny Carrillo Estimated blood loss: none Specimens: other (Rectal polyp) Condition: stable Disposition: post procedure unit Results - Labs CBC & BMP: 05/21/17 06:09 05/18/17 16:14 Discharge Plan - Discharge Medications No Action Omeprazole 20 mg PO BID Gabapentin Cap/Tab [Neurontin Cap/Tab] 600 mg PO DAILY Furosemide Tab [Lasix Tab] 40 mg PO DAILY dilTIAZem HCl [Cartia XT] 180 mg PO DAILY Sertraline HCl 25 mg PO DAILY Losartan Potassium 100 mg PO DAILY Levothyroxine Sodium 100 mcg PO DAILY Insulin Aspart [NovoLOG] 15 unit SUBCUT DAILY PRN PRN Reason: Glucose Management Vitamin E 400 unit PO DAILY Ascorbic Acid [Vitamin C] 1,000 mg PO DAILY Glimepiride 1 mg PO DAILY Warfarin Sodium 5 mg PO DAILY Magnesium Oxide 1,600 mg PO TID Isosorbide Mononitrate [Isosorbide Mononitrate ER] 60 mg PO QAM Metoprolol Succinate Xl [Toprol Xl] 50 mg PO DAILY Pravastatin [Pravachol] 40 mg PO BEDTIME Spironolactone [Aldactone] 12.5 mg PO DAILY Aspirin [Ecotrin] 81 mg PO DAILY Ranitidine Tab [Zantac Tab] 75 mg PO DAILY Insulin Detemir [Levemir] 30 unit SUBCUT BEDTIME Gemfibrozil 600 mg PO BID Glucosamine/D3/Boswellia Jia [Osteo Bi-Flex Tablet] 1 each PO DAILY Insulin Glargine [Lantus] 30 unit SUBCUT BEDTIME Celecoxib [Celebrex] 200 mg PO DAILY - Follow Up or Referral - Forms/Instructions
[2017-05-21 14:19] LABS: Hematocrit 34.9 VOL% (42.0-52.0); Hemoglobin 12.6 GM/DL (14.0-18.0)
[2017-05-21 15:53] VITALS: BP 127/63
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
--- NOTE | 2017-05-24 12:24 | Pathology Report from [facility] ---
[facility] ACCESSION # : [id number] PATIENT NAME : Basil Castanon ORDERING DR : ELMER DAVIS MD CLINICAL HX: GI Bleed POST-OP DX: Colon polyp rectum SPECIMEN INFO: Colon polyp rectum GROSS DESCRIPTION: The specimen is received in formalin labeled with the patients name and consists of a 0.4 x 0.2 cm medeiros tissue fragment. Submitted in one cassette. DIAGNOSIS FOR BASIL CASTANON: COLON POLYP RECTUM: Hyperplastic polyp. COLLECTED DATE: 05/21/2017 [facility] REPORT DATE: 05/24/2017 ELECTRONICALLY SIGNED BY: Zeina Walls M.D. 05/24/2017 - 10:24:18 [email or web address]
== END 2017-05-21 17:43 | disposition home or self-care (01) | DRG 813 ==
LOC: N.ED 14:53 → N.EDINP 14:53 → N.4E 18:51
PROVIDERS: ADMIT Family Medicine; ATTEND Family Medicine

== ENCOUNTER 2017-09-28 09:50 | Observation (INO) ==
[2017-09-28] MEDS ORDERED: ONDANSETRON 4 MG/2 ML VIAL IV PRN (11:02)
[2017-09-28] MEDS ORDERED: ACETAMINOPHEN 325 MG TABLET PO PRN (11:02)
[2017-09-28] MEDS ORDERED: DEXTROSE 50% 25 GM/50 ML VIAL IV PRN (11:20)
[2017-09-28] MEDS ORDERED: GLUCAGON 1 MG VIAL IM PRN (11:20)
[2017-09-28 13:18] LABS: Basophils # 0.1 10*3/uL (0.0-0.2); Basophils % 1.3 % (0.0-0.8); Eosinophils # 0.2 10*3/uL (0.0-0.87); Eosinophils % 3.3 % (0.00-10.9); Hematocrit 39.6 VOL% (42.0-52.0); Immature Granulocytes % 0.2 %; Immature Granulocytes Absolute 0.01 #; Lymphocytes # 1.6 10*3/uL (1.4-4.0); Lymphocytes % 35.8 % (21.2-54.2); Mean Corpuscular HGB Conc 35.4 GM/DL (32-36); Mean Corpuscular Hemoglobin 31 PG (27-34); Mean Corpuscular Volume 87.6 FL (87-102); Monocytes # 0.5 10*3/uL (0.11-0.8); Monocytes % 10.8 % (1.7-12.7); Neutrophils # 2.2 10*3/uL (1.4-7.4); Neutrophils % 48.6 % (38.7-73.9); Platelet Count 133 T/CUMM (130-400); Red Blood Count 4.52 MC/CUMM (3.8-5.5); Red Cell Distribution Width 14.9 % (9.3-17.3); White Blood Count 4.6 T/CUMM (4-12)
[2017-09-28 13:26] LABS: INR 1.3
[2017-09-28 13:49] LABS: Albumin 3.9 G/DL (3.4-5.0); Bilirubin,Total 0.4 MG/DL (0.2-1.0); Calcium 8.9 MG/DL (8.5-10.1); Magnesium 2.5 MG/DL (1.8-2.4); Osmolality,Calculated 289.1 MOS/KG (273-304); Total Protein 7.2 G/DL (6.4-8.3)
[2017-09-28 13:50] LABS: Troponin I Only < 0.015 NG/ML (0.00-0.045)
[2017-09-28 13:57] LABS: Free T4 (Free Thyroxine) 1.01 NG/DL (0.76-1.46); Thyroid Stimulating Hormone 3.64 uIU/ml (0.358-3.74)
[2017-09-28] MEDS: MAGNESIUM OXIDE 400 MG TABLET PO SCH ×2 (14:44→21:48)
[2017-09-28] MEDS: GABAPENTIN 300 MG CAPSULE PO SCH ×2 (14:44→21:48)
[2017-09-28] MEDS: SODIUM CHLORIDE 0.45% 1,000 ML IV SCH (14:44)
[2017-09-28 14:47] LABS: Troponin I Only < 0.015 NG/ML (0.00-0.045)
[2017-09-28] MEDS: INSULIN REGULAR 100 UNIT/ML SUBCUT SCH ×2 (16:05→21:49)
[2017-09-28 17:31] LABS: Troponin I Only < 0.015 NG/ML (0.00-0.045)
[2017-09-28 20:20] LABS: Troponin I Only < 0.015 NG/ML (0.00-0.045)
[2017-09-28] MEDS: PANTOPRAZOLE 40 MG TABLET PO SCH (21:48)
[2017-09-28] MEDS: DOCUSATE SODIUM 100 MG CAPSULE PO SCH (21:48)
[2017-09-28] MEDS: INSULIN GLARGINE 100 UNIT/ML SUBCUT SCH (21:48)
[2017-09-28] MEDS: PRAVASTATIN 40 MG TABLET PO SCH (21:48)
[2017-09-28 23:06] LABS: Troponin I Only < 0.015 NG/ML (0.00-0.045)
[2017-09-29] MEDS: SODIUM CHLORIDE 0.45% 1,000 ML IV SCH (03:54)
[2017-09-29] MEDS: LEVOTHYROXINE 125 MCG TABLET PO SCH (06:05)
[2017-09-29] MEDS ORDERED: GLUCOSAMINE PO SCH (09:00)
[2017-09-29] MEDS ORDERED: METOPROLOL SUCCINATE XL 50 MG TABLET PO SCH (09:00)
[2017-09-29] MEDS ORDERED: PANTOPRAZOLE 40 MG TABLET PO SCH (09:00)
[2017-09-29] MEDS ORDERED: METOPROLOL SUCCINATE XL 25 MG TABLET PO SCH (09:00)
[2017-09-29] MEDS ORDERED: DILTIAZEM CD 180 MG CAPSULE PO SCH (09:00)
[2017-09-29] MEDS ORDERED: BOSWELLIA SERRA PO SCH (09:00)
[2017-09-29] MEDS ORDERED: D3 PO SCH (09:00)
[2017-09-29] MEDS ORDERED: NITROGLYCERIN SL 0.4 MG TABLET SL ONE (09:47)
[2017-09-29] MEDS ORDERED: ASPIRIN CHEW 81 MG TABLET PO ONE ×2 (09:48→09:50)
[2017-09-29] MEDS ORDERED: NITROGLYCERIN SL 0.4 MG TABLET SL PRN (09:50)
[2017-09-29] MEDS: DILTIAZEM CD 120 MG CAPSULE PO SCH (10:03)
[2017-09-29] MEDS: SPIRONOLACTONE 25 MG TABLET PO SCH (10:04)
[2017-09-29] MEDS: FAMOTIDINE 20 MG TABLET PO SCH (10:05)
[2017-09-29] MEDS: RANOLAZINE 500 MG TABLET PO SCH ×2 (10:06→21:12)
[2017-09-29] MEDS: ISOSORBIDE MONONITRATE 60 MG TABLET PO SCH (10:06)
[2017-09-29] MEDS: GABAPENTIN 300 MG CAPSULE PO SCH ×3 (10:06→21:12)
[2017-09-29] MEDS: DOCUSATE SODIUM 100 MG CAPSULE PO SCH ×2 (10:06→21:13)
[2017-09-29] MEDS: LOSARTAN 50 MG TABLET PO SCH (10:07)
[2017-09-29] MEDS: CELECOXIB 200 MG CAPSULE PO SCH (10:08)
[2017-09-29] MEDS: MAGNESIUM OXIDE 400 MG TABLET PO SCH ×3 (10:09→21:11)
[2017-09-29] MEDS: VITAMIN E 400 UNIT CAPSULE PO SCH (10:09)
[2017-09-29] MEDS: FUROSEMIDE 40 MG TABLET PO SCH (10:09)
[2017-09-29] MEDS: INSULIN REGULAR 100 UNIT/ML SUBCUT SCH ×4 (10:11→21:13)
[2017-09-29] MEDS: GLIMEPIRIDE 2 MG TABLET PO SCH (10:11)
[2017-09-29] MEDS: ASCORBIC ACID 500 MG TABLET PO SCH (10:12)
[2017-09-29] MEDS: PANTOPRAZOLE 40 MG TABLET PO SCH ×2 (10:34→21:13)
[2017-09-29] MEDS: GEMFIBROZIL 600 MG TABLET PO SCH (10:35)
[2017-09-29 10:46] LABS: Troponin I Only < 0.015 NG/ML (0.00-0.045)
[2017-09-29] MEDS: SERTRALINE 25 MG TABLET PO SCH (11:28)
[2017-09-29] MEDS ORDERED: WARFARIN 5 MG TABLET PO SCH (18:00)
[2017-09-29] MEDS: PRAVASTATIN 40 MG TABLET PO SCH (21:12)
[2017-09-29] MEDS: INSULIN GLARGINE 100 UNIT/ML SUBCUT SCH (21:14)
[2017-09-30] MEDS: SODIUM CHLORIDE 0.45% 1,000 ML IV SCH (02:02)
[2017-09-30] MEDS: LEVOTHYROXINE 125 MCG TABLET PO SCH (05:51)
[2017-09-30] MEDS: INSULIN REGULAR 100 UNIT/ML SUBCUT SCH ×2 (08:56→13:21)
[2017-09-30] MEDS: RANOLAZINE 500 MG TABLET PO SCH (08:57)
[2017-09-30] MEDS: DOCUSATE SODIUM 100 MG CAPSULE PO SCH (08:57)
[2017-09-30] MEDS: SPIRONOLACTONE 25 MG TABLET PO SCH (08:58)
[2017-09-30] MEDS: GEMFIBROZIL 600 MG TABLET PO SCH (08:58)
[2017-09-30] MEDS: DILTIAZEM CD 120 MG CAPSULE PO SCH (08:58)
[2017-09-30] MEDS: VITAMIN E 400 UNIT CAPSULE PO SCH (08:58)
[2017-09-30] MEDS: MAGNESIUM OXIDE 400 MG TABLET PO SCH (08:59)
[2017-09-30] MEDS: ASCORBIC ACID 500 MG TABLET PO SCH (09:00)
[2017-09-30] MEDS: SERTRALINE 25 MG TABLET PO SCH (09:00)
[2017-09-30] MEDS: GABAPENTIN 300 MG CAPSULE PO SCH (09:01)
[2017-09-30] MEDS: ISOSORBIDE MONONITRATE 60 MG TABLET PO SCH (09:01)
[2017-09-30] MEDS: LOSARTAN 50 MG TABLET PO SCH (09:01)
[2017-09-30] MEDS: PANTOPRAZOLE 40 MG TABLET PO SCH (09:02)
[2017-09-30] MEDS: FUROSEMIDE 40 MG TABLET PO SCH (09:03)
[2017-09-30] MEDS: GLIMEPIRIDE 2 MG TABLET PO SCH (09:03)
[2017-09-30] MEDS: FAMOTIDINE 20 MG TABLET PO SCH (09:04)
[2017-09-30] MEDS: CELECOXIB 200 MG CAPSULE PO SCH (12:08)
[2017-09-30 12:15] VITALS: BP 127/77
== END 2017-09-30 12:30 | disposition home or self-care (01) ==
LOC: N.2E
PROVIDERS: ADMIT Family Medicine; ATTEND Family Medicine

== ENCOUNTER 2018-12-16 18:17 | Observation (INO) ==
[2018-12-16] MEDS ORDERED: ASPIRIN 325 MG TABLET PO STA (18:42)
[2018-12-16 18:57] LABS: Basophils # 0.1 10*3/uL (0.0-0.2); Basophils % 1.8 % (0.0-0.8); Eosinophils # 0.1 10*3/uL (0.0-0.87); Eosinophils % 3.1 % (0.00-10.9); Hematocrit 43.7 VOL% (42.0-52.0); Hemoglobin 15.4 GM/DL (14.0-18.0); Immature Granulocytes % 0.2 %; Immature Granulocytes Absolute 0.01 #; Lymphocytes # 1.9 10*3/uL (1.4-4.0); Lymphocytes % 40.5 % (21.2-54.2); Mean Corpuscular HGB Conc 35.2 GM/DL (32-36); Mean Corpuscular Hemoglobin 32 PG (27-34); Mean Corpuscular Volume 89.7 FL (87-102); Mean Platelet Volume 9.7 FL (9.6-12.0); Monocytes # 0.6 10*3/uL (0.11-0.8); Monocytes % 12.7 % (1.7-12.7); Neutrophils # 1.9 10*3/uL (1.4-7.4); Neutrophils % 41.7 % (38.7-73.9); Platelet Count 144 T/CUMM (130-400); Red Blood Count 4.87 MC/CUMM (3.8-5.5); Red Cell Distribution Width 13.7 % (9.3-17.3); White Blood Count 4.6 T/CUMM (4-12)
[2018-12-16 19:30] LABS: Albumin 4.3 G/DL (3.4-5.0); Bilirubin,Total 0.6 MG/DL (0.2-1.0); Calcium 8.9 MG/DL (8.5-10.1); Osmolality,Calculated 280.7 MOS/KG (273-304); Potassium 3.6 MMOL/L (3.5-5.1)
[2018-12-16] MEDS ORDERED: ACETAMINOPHEN 325 MG TABLET PO PRN (20:06)
[2018-12-16] MEDS ORDERED: ONDANSETRON 4 MG/2 ML VIAL IV PRN (20:06)
[2018-12-16 21:46] LABS: PT Patient Result 31.8 SECS; Partial Thromboplastin Time 46.3 SECS (0-40)
[2018-12-17] MEDS ORDERED: NITROGLYCERIN SL 0.4 MG TABLET SL PRN (06:56)
[2018-12-17] MEDS ORDERED: INSULIN LISPRO 100 UNIT/ML SUBCUT PRN (06:56)
[2018-12-17] MEDS ORDERED: INSULIN GLARGINE 100 UNIT/ML SUBCUT PRN (06:56)
[2018-12-17] MEDS ORDERED: LEVOTHYROXINE 112 MCG TABLET PO SCH (07:15)
[2018-12-17] MEDS ORDERED: VITAMIN E 400 UNIT CAPSULE PO SCH (09:00)
[2018-12-17] MEDS ORDERED: LOSARTAN 25 MG TABLET PO SCH (09:00)
[2018-12-17] MEDS ORDERED: GLIMEPIRIDE 2 MG TABLET PO SCH (09:00)
[2018-12-17] MEDS ORDERED: LORATADINE 10 MG TABLET PO SCH (09:00)
[2018-12-17] MEDS ORDERED: ASCORBIC ACID 500 MG TABLET PO SCH (09:00)
[2018-12-17] MEDS ORDERED: CELECOXIB 200 MG CAPSULE PO SCH (09:00)
[2018-12-17] MEDS ORDERED: DONEPEZIL 5 MG TABLET PO SCH (09:00)
[2018-12-17] MEDS ORDERED: POTASSIUM GLUCONATE 500 MG TABLET PO SCH (09:00)
[2018-12-17] MEDS ORDERED: METOPROLOL SUCCINATE XL 25 MG TABLET PO SCH (09:00)
[2018-12-17] MEDS ORDERED: SERTRALINE 25 MG TABLET PO SCH (09:00)
[2018-12-17] MEDS ORDERED: DILTIAZEM CD 120 MG CAPSULE PO SCH (09:00)
[2018-12-17] MEDS ORDERED: FUROSEMIDE 40 MG TABLET PO SCH (09:00)
[2018-12-17] MEDS ORDERED: GABAPENTIN 300 MG CAPSULE PO SCH (09:00)
[2018-12-17] MEDS ORDERED: MAGNESIUM OXIDE 400 MG TABLET PO SCH ×2 (09:00→21:00)
[2018-12-17] MEDS ORDERED: ASPIRIN EC 81 MG TABLET PO SCH (09:00)
[2018-12-17] MEDS ORDERED: SPIRONOLACTONE 25 MG TABLET PO SCH (09:00)
[2018-12-17] MEDS ORDERED: PANTOPRAZOLE 40 MG TABLET PO SCH (09:00)
[2018-12-17] MEDS ORDERED: GEMFIBROZIL 600 MG TABLET PO SCH (09:00)
[2018-12-17] MEDS ORDERED: [UNRECOGNIZED DRUG - OTHER] PO SCH (09:00)
[2018-12-17] MEDS ORDERED: RANOLAZINE 500 MG TABLET PO SCH (09:00)
[2018-12-17] MEDS ORDERED: ISOSORBIDE MONONITRATE 60 MG TABLET PO SCH (09:00)
[2018-12-17 12:37] VITALS: BP 164/80
[2018-12-17] MEDS ORDERED: WARFARIN 7.5 MG TABLET PO SCH (18:00)
[2018-12-17] MEDS ORDERED: SIMVASTATIN 20 MG TABLET PO SCH (21:00)
[2018-12-17] MEDS ORDERED: FAMOTIDINE 20 MG TABLET PO SCH (21:00)
== END 2018-12-17 13:37 | disposition home or self-care (01) ==
LOC: N.ED 18:17 → N.EDINP 18:17 → N.TELES 21:35
PROVIDERS: ADMIT Family Medicine; ATTEND Family Medicine

== ENCOUNTER 2019-01-30 11:24 | Inpatient (IN) ==
[2019-01-30 16:23] LABS: Basophils % 0.5 % (0.0-0.8); Eosinophils # 0.1 10*3/uL (0.0-0.87); Eosinophils % 1.4 % (0.00-10.9); Hematocrit 35.7 VOL% (42.0-52.0); Hemoglobin 12.5 GM/DL (14.0-18.0); Immature Granulocytes % 0.2 %; Immature Granulocytes Absolute 0.01 #; Lymphocytes # 0.7 10*3/uL (1.4-4.0); Lymphocytes % 17.7 % (21.2-54.2); Mean Corpuscular Hemoglobin 32 PG (27-34); Mean Corpuscular Volume 91.5 FL (87-102); Mean Platelet Volume 10.2 FL (9.6-12.0); Monocytes # 0.5 10*3/uL (0.11-0.8); Monocytes % 12.9 % (1.7-12.7); Neutrophils # 2.8 10*3/uL (1.4-7.4); Neutrophils % 67.3 % (38.7-73.9); Platelet Count 168 T/CUMM (130-400); Red Cell Distribution Width 14.6 % (9.3-17.3); White Blood Count 4.2 T/CUMM (4-12)
[2019-01-30 16:33] LABS: INR 1.1; PT Patient Result 12.2 SECS
[2019-01-30 16:42] LABS: Albumin 2.8 G/DL (3.4-5.0); Bilirubin,Total 0.9 MG/DL (0.2-1.0); Calcium 9.1 MG/DL (8.5-10.1); Potassium 3.6 MMOL/L (3.5-5.1); Total Protein 7.2 G/DL (6.4-8.3)
[2019-01-30 16:59] LABS: Apearance,Urine CLEAR (Clear); Bilirubin,Urine Negative (Negative); Blood, Urine Negative (Negative); Glucose,Urine (UA) 150 mg/dL (Negative); Ketones,Urine Negative (Negative); Mucus,Urine Occasional /LPF (Occasional); Nitrite,Urine Negative (Negative); Protein,Urine Negative; RBC,Urine 2 /HPF (0-4); Squamous Epithelial Cell,Urine Occasional /HPF (0-10); Urine Color Yellow (Yellow); Urine Specific Gravity 1.021 (1.001-1.035); Urine Urobilinogen < 2.0 EU/DL (0.2-1.0); WBC,Urine 1 /HPF (0-6)
[2019-01-30] MEDS ORDERED: SODIUM CHLORIDE 0.9% 1,000 ML IV SCH (18:11)
[2019-01-30] MEDS ORDERED: ACETAMINOPHEN 325 MG TABLET PO PRN (18:11)
[2019-01-30] MEDS: SODIUM CHLORIDE 0.45% 1,000 ML IV SCH (19:32)
[2019-01-30] MEDS ORDERED: DEXTROSE 50% 25 GM/50 ML SYRINGE IV PRN (21:03)
[2019-01-30] MEDS ORDERED: GLUCAGON 1 MG VIAL IM PRN (21:03)
[2019-01-31] MEDS: ONDANSETRON 4 MG/2 ML VIAL IV PRN ×2 (02:01→10:03)
[2019-01-31] MEDS: SODIUM CHLORIDE 0.45% 1,000 ML IV SCH ×4 (02:11→21:07)
[2019-01-31 05:52] LABS: Basophils % 0.4 % (0.0-0.8); Eosinophils # 0.2 10*3/uL (0.0-0.87); Eosinophils % 3.6 % (0.00-10.9); Hematocrit 36.7 VOL% (42.0-52.0); Hemoglobin 12.4 GM/DL (14.0-18.0); Immature Granulocytes % 0.4 %; Immature Granulocytes Absolute 0.02 #; Lymphocytes # 0.7 10*3/uL (1.4-4.0); Lymphocytes % 14.4 % (21.2-54.2); Mean Corpuscular HGB Conc 33.8 GM/DL (32-36); Mean Corpuscular Hemoglobin 32 PG (27-34); Mean Corpuscular Volume 94.1 FL (87-102); Mean Platelet Volume 10.3 FL (9.6-12.0); Monocytes # 0.6 10*3/uL (0.11-0.8); Monocytes % 12.9 % (1.7-12.7); Neutrophils # 3.2 10*3/uL (1.4-7.4); Neutrophils % 68.3 % (38.7-73.9); Platelet Count 190 T/CUMM (130-400); Red Cell Distribution Width 14.6 % (9.3-17.3); White Blood Count 4.7 T/CUMM (4-12)
[2019-01-31 06:29] LABS: Calcium 8.7 MG/DL (8.5-10.1); Osmolality,Calculated 280.8 MOS/KG (273-304)
[2019-01-31] MEDS: PANTOPRAZOLE 40 MG VIAL IV SCH (10:05)
[2019-02-01 05:28] LABS: Basophils % 0.4 % (0.0-0.8); Eosinophils # 0.2 10*3/uL (0.0-0.87); Eosinophils % 3.7 % (0.00-10.9); Hemoglobin 12.3 GM/DL (14.0-18.0); Immature Granulocytes % 1.1 %; Immature Granulocytes Absolute 0.06 #; Lymphocytes # 0.7 10*3/uL (1.4-4.0); Lymphocytes % 12.9 % (21.2-54.2); Mean Corpuscular HGB Conc 33.2 GM/DL (32-36); Mean Corpuscular Hemoglobin 31 PG (27-34); Mean Corpuscular Volume 94.4 FL (87-102); Mean Platelet Volume 9.8 FL (9.6-12.0); Monocytes # 0.8 10*3/uL (0.11-0.8); Monocytes % 13.9 % (1.7-12.7); Neutrophils # 3.9 10*3/uL (1.4-7.4); Platelet Count 203 T/CUMM (130-400); Red Blood Count 3.92 MC/CUMM (3.8-5.5); Red Cell Distribution Width 14.4 % (9.3-17.3); White Blood Count 5.7 T/CUMM (4-12)
[2019-02-01] MEDS: SODIUM CHLORIDE 0.45% 1,000 ML IV SCH ×3 (05:28→22:15)
[2019-02-01 06:06] LABS: Calcium 8.3 MG/DL (8.5-10.1); Osmolality,Calculated 277.7 MOS/KG (273-304); Potassium 3.5 MMOL/L (3.5-5.1)
[2019-02-01] MEDS ORDERED: APIXABAN 5 MG TABLET PO SCH (09:00)
[2019-02-01] MEDS: ASCORBIC ACID 500 MG TABLET PO SCH (09:25)
[2019-02-01] MEDS: RANOLAZINE 500 MG TABLET PO SCH (09:25)
[2019-02-01] MEDS: ISOSORBIDE MONONITRATE 60 MG TABLET PO SCH (09:25)
[2019-02-01] MEDS: LEVOTHYROXINE 112 MCG TABLET PO SCH (09:25)
[2019-02-01] MEDS: TAMSULOSIN 0.4 MG CAPSULE PO SCH (09:25)
[2019-02-01] MEDS: METOPROLOL SUCCINATE XL 25 MG TABLET PO SCH (09:26)
[2019-02-01] MEDS: LORATADINE 10 MG TABLET PO SCH (09:26)
[2019-02-01] MEDS: DILTIAZEM CD 120 MG CAPSULE PO SCH (09:26)
[2019-02-01] MEDS: POTASSIUM GLUCONATE 500 MG TABLET PO SCH (09:26)
[2019-02-01] MEDS: SERTRALINE 25 MG TABLET PO SCH (09:26)
[2019-02-01] MEDS: MAGNESIUM OXIDE 400 MG TABLET PO SCH (09:26)
[2019-02-01] MEDS: PANTOPRAZOLE 40 MG VIAL IV SCH (09:27)
[2019-02-01] MEDS: GABAPENTIN 300 MG CAPSULE PO SCH ×2 (09:27→15:59)
[2019-02-01] MEDS: ENOXAPARIN 40 MG/0.4 ML SYRINGE SUBCUT SCH (10:21)
[2019-02-01] MEDS: ONDANSETRON 4 MG/2 ML VIAL IV PRN (14:15)
[2019-02-01] MEDS: INSULIN LISPRO 100 UNIT/ML SUBCUT SCH (17:17)
[2019-02-01] MEDS: SIMVASTATIN 10 MG TABLET PO SCH (20:16)
[2019-02-01] MEDS: FAMOTIDINE 20 MG TABLET PO SCH (20:16)
[2019-02-01] MEDS ORDERED: NON-FORMULARY MEDICATION (Omeprazole [Omeprazole] 20 MG) PO SCH (21:00)
[2019-02-02] MEDS: SODIUM CHLORIDE 0.45% 1,000 ML IV SCH ×3 (06:17→21:16)
[2019-02-02] MEDS: INSULIN LISPRO 100 UNIT/ML SUBCUT SCH ×3 (09:47→16:55)
[2019-02-02] MEDS ORDERED: TAMSULOSIN 0.4 MG CAPSULE PO ONE (10:30)
[2019-02-02] MEDS: ASCORBIC ACID 500 MG TABLET PO SCH (10:40)
[2019-02-02] MEDS: RANOLAZINE 500 MG TABLET PO SCH ×2 (10:40→20:12)
[2019-02-02] MEDS: ENOXAPARIN 40 MG/0.4 ML SYRINGE SUBCUT SCH (10:40)
[2019-02-02] MEDS: MAGNESIUM OXIDE 400 MG TABLET PO SCH ×2 (10:40→20:13)
[2019-02-02] MEDS: LEVOTHYROXINE 112 MCG TABLET PO SCH (10:41)
[2019-02-02] MEDS: ISOSORBIDE MONONITRATE 60 MG TABLET PO SCH (10:41)
[2019-02-02] MEDS: POTASSIUM GLUCONATE 500 MG TABLET PO SCH (10:41)
[2019-02-02] MEDS: DILTIAZEM CD 120 MG CAPSULE PO SCH (10:41)
[2019-02-02] MEDS: SERTRALINE 25 MG TABLET PO SCH (10:41)
[2019-02-02] MEDS: METOPROLOL SUCCINATE XL 25 MG TABLET PO SCH (10:41)
[2019-02-02] MEDS: LORATADINE 10 MG TABLET PO SCH (10:42)
[2019-02-02] MEDS: GABAPENTIN 300 MG CAPSULE PO SCH ×3 (10:42→20:13)
[2019-02-02] MEDS: PANTOPRAZOLE 40 MG VIAL IV SCH (12:08)
[2019-02-02] MEDS: FAMOTIDINE 20 MG TABLET PO SCH (20:12)
[2019-02-02] MEDS: TAMSULOSIN 0.4 MG CAPSULE PO SCH (20:13)
[2019-02-02] MEDS: SIMVASTATIN 10 MG TABLET PO SCH (20:13)
[2019-02-03] MEDS: SODIUM CHLORIDE 0.45% 1,000 ML IV SCH ×3 (05:10→23:28)
[2019-02-03] MEDS ORDERED: KETOROLAC 30 MG/1 ML VIAL IV ONE (05:47)
[2019-02-03] MEDS: methylPREDNISolone SOD SUC 40 MG/1 ML VIAL IV SCH ×3 (06:29→23:24)
[2019-02-03] MEDS: ENOXAPARIN 40 MG/0.4 ML SYRINGE SUBCUT SCH (09:13)
[2019-02-03] MEDS: INSULIN LISPRO 100 UNIT/ML SUBCUT SCH ×3 (09:13→17:47)
[2019-02-03] MEDS: DILTIAZEM CD 120 MG CAPSULE PO SCH (09:15)
[2019-02-03] MEDS: TAMSULOSIN 0.4 MG CAPSULE PO SCH ×2 (09:15→20:40)
[2019-02-03] MEDS: LORATADINE 10 MG TABLET PO SCH (09:15)
[2019-02-03] MEDS: POTASSIUM GLUCONATE 500 MG TABLET PO SCH (09:16)
[2019-02-03] MEDS: ISOSORBIDE MONONITRATE 60 MG TABLET PO SCH (09:16)
[2019-02-03] MEDS: PANTOPRAZOLE 40 MG VIAL IV SCH (09:16)
[2019-02-03] MEDS: GABAPENTIN 300 MG CAPSULE PO SCH ×3 (09:16→20:40)
[2019-02-03] MEDS: MAGNESIUM OXIDE 400 MG TABLET PO SCH ×2 (09:16→20:40)
[2019-02-03] MEDS: ASCORBIC ACID 500 MG TABLET PO SCH (09:17)
[2019-02-03] MEDS: LEVOTHYROXINE 112 MCG TABLET PO SCH (09:17)
[2019-02-03] MEDS: RANOLAZINE 500 MG TABLET PO SCH ×2 (09:17→20:40)
[2019-02-03] MEDS: SERTRALINE 25 MG TABLET PO SCH (09:17)
[2019-02-03] MEDS: METOPROLOL SUCCINATE XL 25 MG TABLET PO SCH (09:17)
[2019-02-03] MEDS: SIMVASTATIN 10 MG TABLET PO SCH (20:40)
[2019-02-03] MEDS: FUROSEMIDE 40 MG TABLET PO SCH (20:41)
[2019-02-03] MEDS: FAMOTIDINE 20 MG TABLET PO SCH (20:41)
[2019-02-04] MEDS: methylPREDNISolone SOD SUC 40 MG/1 ML VIAL IV SCH ×3 (06:16→21:16)
[2019-02-04] MEDS: SODIUM CHLORIDE 0.45% 1,000 ML IV SCH ×2 (07:25→13:31)
[2019-02-04] MEDS: ENOXAPARIN 40 MG/0.4 ML SYRINGE SUBCUT SCH (09:11)
[2019-02-04] MEDS: INSULIN LISPRO 100 UNIT/ML SUBCUT SCH ×3 (09:12→17:06)
[2019-02-04] MEDS: SPIRONOLACTONE 25 MG TABLET PO SCH (09:15)
[2019-02-04] MEDS: GLIMEPIRIDE 2 MG TABLET PO SCH (09:16)
[2019-02-04] MEDS: LORATADINE 10 MG TABLET PO SCH (09:17)
[2019-02-04] MEDS: DILTIAZEM CD 120 MG CAPSULE PO SCH (09:17)
[2019-02-04] MEDS: LOSARTAN 50 MG TABLET PO SCH (09:17)
[2019-02-04] MEDS: ISOSORBIDE MONONITRATE 60 MG TABLET PO SCH (09:18)
[2019-02-04] MEDS: TAMSULOSIN 0.4 MG CAPSULE PO SCH ×2 (09:18→20:16)
[2019-02-04] MEDS: FUROSEMIDE 40 MG TABLET PO SCH ×2 (09:18→20:16)
[2019-02-04] MEDS: GEMFIBROZIL 600 MG TABLET PO SCH (09:18)
[2019-02-04] MEDS: POTASSIUM GLUCONATE 500 MG TABLET PO SCH (09:19)
[2019-02-04] MEDS: METOPROLOL SUCCINATE XL 25 MG TABLET PO SCH (09:19)
[2019-02-04] MEDS: MAGNESIUM OXIDE 400 MG TABLET PO SCH ×2 (09:19→20:16)
[2019-02-04] MEDS: GABAPENTIN 300 MG CAPSULE PO SCH ×3 (09:19→20:16)
[2019-02-04] MEDS: SERTRALINE 25 MG TABLET PO SCH (09:20)
[2019-02-04] MEDS: RANOLAZINE 500 MG TABLET PO SCH ×2 (09:20→20:15)
[2019-02-04] MEDS: PANTOPRAZOLE 40 MG VIAL IV SCH (09:20)
[2019-02-04] MEDS: ASCORBIC ACID 500 MG TABLET PO SCH (09:20)
[2019-02-04] MEDS: LEVOTHYROXINE 112 MCG TABLET PO SCH (09:20)
[2019-02-04] MEDS: SIMVASTATIN 10 MG TABLET PO SCH (20:15)
[2019-02-04] MEDS: FAMOTIDINE 20 MG TABLET PO SCH (20:16)
[2019-02-05] MEDS: SODIUM CHLORIDE 0.45% 1,000 ML IV SCH (01:50)
[2019-02-05] MEDS: methylPREDNISolone SOD SUC 40 MG/1 ML VIAL IV SCH (05:54)
[2019-02-05] MEDS: ENOXAPARIN 40 MG/0.4 ML SYRINGE SUBCUT SCH (08:53)
[2019-02-05] MEDS: INSULIN LISPRO 100 UNIT/ML SUBCUT SCH ×2 (08:53→11:56)
[2019-02-05] MEDS: SPIRONOLACTONE 25 MG TABLET PO SCH (08:54)
[2019-02-05] MEDS: DILTIAZEM CD 120 MG CAPSULE PO SCH (08:55)
[2019-02-05] MEDS: GLIMEPIRIDE 2 MG TABLET PO SCH (08:55)
[2019-02-05] MEDS: LOSARTAN 50 MG TABLET PO SCH (08:57)
[2019-02-05] MEDS: TAMSULOSIN 0.4 MG CAPSULE PO SCH (08:57)
[2019-02-05] MEDS: GEMFIBROZIL 600 MG TABLET PO SCH (08:58)
[2019-02-05] MEDS: FUROSEMIDE 40 MG TABLET PO SCH (08:58)
[2019-02-05] MEDS: ISOSORBIDE MONONITRATE 60 MG TABLET PO SCH (08:58)
[2019-02-05] MEDS: MAGNESIUM OXIDE 400 MG TABLET PO SCH (08:59)
[2019-02-05] MEDS: PANTOPRAZOLE 40 MG VIAL IV SCH (08:59)
[2019-02-05] MEDS: RANOLAZINE 500 MG TABLET PO SCH (08:59)
[2019-02-05] MEDS: GABAPENTIN 300 MG CAPSULE PO SCH (08:59)
[2019-02-05] MEDS: POTASSIUM GLUCONATE 500 MG TABLET PO SCH (08:59)
[2019-02-05] MEDS: LEVOTHYROXINE 112 MCG TABLET PO SCH (09:00)
[2019-02-05] MEDS: SERTRALINE 25 MG TABLET PO SCH (09:00)
[2019-02-05] MEDS: METOPROLOL SUCCINATE XL 25 MG TABLET PO SCH (09:00)
[2019-02-05] MEDS: ASCORBIC ACID 500 MG TABLET PO SCH (09:00)
[2019-02-05] MEDS: LORATADINE 10 MG TABLET PO SCH (09:01)
[2019-02-05 13:57] VITALS: BP 95/41
== END 2019-02-05 14:50 | disposition home or self-care (01) | DRG 389 ==
LOC: N.ED 11:24 → N.EDINP 16:16 → N.3E 18:08
PROVIDERS: ADMIT Surgery; ATTEND Surgery

== ENCOUNTER 2019-02-11 15:11 | Inpatient (IN) ==
[2019-02-11] MEDS ORDERED: LOPERAMIDE 2 MG CAPSULE PO STA (15:47)
[2019-02-11] MEDS ORDERED: SODIUM CHLORIDE 0.9% 1,000 ML IV STA (15:47)
[2019-02-11 16:40] LABS: Basophils % 0.3 % (0.0-0.8); Eosinophils % 0.1 % (0.00-10.9); Hematocrit 36.4 VOL% (42.0-52.0); Hemoglobin 12.5 GM/DL (14.0-18.0); Immature Granulocytes % 0.7 %; Immature Granulocytes Absolute 0.05 #; Lymphocytes # 0.5 10*3/uL (1.4-4.0); Mean Corpuscular HGB Conc 34.3 GM/DL (32-36); Mean Corpuscular Volume 91.2 FL (87-102); Mean Platelet Volume 9.3 FL (9.6-12.0); Monocytes % 6.6 % (1.7-12.7); Neutrophils % 84.3 % (38.7-73.9); Platelet Count 171 T/CUMM (130-400); Red Blood Count 3.99 MC/CUMM (3.8-5.5); Red Cell Distribution Width 14.5 % (9.3-17.3); White Blood Count 6.8 T/CUMM (4-12)
[2019-02-11 16:45] LABS: Apearance,Urine CLEAR (Clear); Bacteria,Urine Many /HPF (Few); Bilirubin,Urine Negative (Negative); Blood, Urine Negative (Negative); Glucose,Urine (UA) Negative (Negative); Ketones,Urine Negative (Negative); Mucus,Urine Occasional /LPF (Occasional); Nitrite,Urine Positive (Negative); Protein,Urine 30 MG/DL; RBC,Urine 5 /HPF (0-4); Urine Color Amber (Yellow); Urine Urobilinogen < 2.0 EU/DL (0.2-1.0); WBC,Urine 110 /HPF (0-6)
[2019-02-11 17:11] LABS: Albumin 2.5 G/DL (3.4-5.0); Bilirubin,Total 0.8 MG/DL (0.2-1.0); Calcium 7.7 MG/DL (8.5-10.1); Osmolality,Calculated 279.2 MOS/KG (273-304)
[2019-02-11 17:32] LABS: Band Neutrophils 10 % (0-10); Lymphocytes 7 % (20-55); Macrocytosis Slight; Polychromasia 1+; Segmented Neutrophils 78 % (50-85); Total Cells Counted 100
[2019-02-11] MEDS ORDERED: ONDANSETRON 4 MG/2 ML VIAL IV PRN (17:38)
[2019-02-11] MEDS ORDERED: ACETAMINOPHEN 325 MG TABLET PO PRN (17:38)
[2019-02-11] MEDS: SODIUM CHLORIDE 0.45% 1,000 ML IV SCH (17:51)
[2019-02-11] MEDS ORDERED: DEXTROSE 50% 25 GM/50 ML VIAL IV PRN (18:51)
[2019-02-11] MEDS ORDERED: GLUCAGON 1 MG VIAL IM PRN (18:51)
[2019-02-11] MEDS: FUROSEMIDE 40 MG TABLET PO SCH (20:22)
[2019-02-11] MEDS: APIXABAN 5 MG TABLET PO SCH (20:52)
[2019-02-11] MEDS: RANOLAZINE 500 MG TABLET PO SCH (20:52)
[2019-02-11] MEDS: sitaGLIPtin 25 MG TABLET PO SCH (20:52)
[2019-02-11] MEDS: GABAPENTIN 300 MG CAPSULE PO SCH (20:52)
[2019-02-11] MEDS: TAMSULOSIN 0.4 MG CAPSULE PO SCH (20:52)
[2019-02-11] MEDS: SIMVASTATIN 10 MG TABLET PO SCH (20:52)
[2019-02-11] MEDS: VANCOMYCIN 50 MG/ML 60 ML/BOTTLE PO SCH (20:53)
[2019-02-11] MEDS: MAGNESIUM OXIDE 400 MG TABLET PO SCH (20:53)
[2019-02-11] MEDS: DOCUSATE SODIUM 100 MG CAPSULE PO SCH (20:56)
[2019-02-11] MEDS: INSULIN LISPRO 100 UNIT/ML SUBCUT SCH (20:56)
[2019-02-12] MEDS: SODIUM CHLORIDE 0.45% 1,000 ML IV SCH ×5 (01:08→16:59)
[2019-02-12] MEDS: VANCOMYCIN 50 MG/ML 60 ML/BOTTLE PO SCH ×4 (02:41→21:08)
[2019-02-12 05:31] LABS: Basophils % 0.2 % (0.0-0.8); Eosinophils % 0.6 % (0.00-10.9); Hematocrit 34.7 VOL% (42.0-52.0); Hemoglobin 11.9 GM/DL (14.0-18.0); Immature Granulocytes % 0.8 %; Immature Granulocytes Absolute 0.05 #; Lymphocytes # 0.8 10*3/uL (1.4-4.0); Lymphocytes % 12.3 % (21.2-54.2); Mean Corpuscular HGB Conc 34.3 GM/DL (32-36); Mean Corpuscular Volume 91.1 FL (87-102); Mean Platelet Volume 9.8 FL (9.6-12.0); Monocytes % 6.9 % (1.7-12.7); Neutrophils % 79.2 % (38.7-73.9); Platelet Count 161 T/CUMM (130-400); Red Blood Count 3.81 MC/CUMM (3.8-5.5); Red Cell Distribution Width 14.6 % (9.3-17.3); White Blood Count 6.4 T/CUMM (4-12)
[2019-02-12 05:48] LABS: Calcium 7.5 MG/DL (8.5-10.1); Osmolality,Calculated 271.1 MOS/KG (273-304)
[2019-02-12] MEDS: LEVOTHYROXINE 112 MCG TABLET PO SCH (06:06)
[2019-02-12] MEDS: METOPROLOL SUCCINATE XL 25 MG TABLET PO SCH (08:42)
[2019-02-12] MEDS: POTASSIUM CHLORIDE 20 MEQ TABLET PO PRN ×3 (08:42→13:51)
[2019-02-12] MEDS: GEMFIBROZIL 600 MG TABLET PO SCH (08:43)
[2019-02-12] MEDS: ASCORBIC ACID 500 MG TABLET PO SCH (08:43)
[2019-02-12] MEDS: RANOLAZINE 500 MG TABLET PO SCH ×2 (08:43→21:09)
[2019-02-12] MEDS: MAGNESIUM OXIDE 400 MG TABLET PO SCH ×2 (08:43→21:09)
[2019-02-12] MEDS: TAMSULOSIN 0.4 MG CAPSULE PO SCH ×2 (08:44→21:11)
[2019-02-12] MEDS: GABAPENTIN 300 MG CAPSULE PO SCH ×3 (08:44→21:09)
[2019-02-12] MEDS: APIXABAN 5 MG TABLET PO SCH ×2 (08:44→21:09)
[2019-02-12] MEDS: LORATADINE 10 MG TABLET PO SCH (08:44)
[2019-02-12] MEDS: DILTIAZEM CD 120 MG CAPSULE PO SCH (08:44)
[2019-02-12] MEDS: PANTOPRAZOLE 40 MG TABLET PO SCH (08:44)
[2019-02-12] MEDS: FUROSEMIDE 40 MG TABLET PO SCH ×2 (08:45→16:45)
[2019-02-12] MEDS: LOSARTAN 50 MG TABLET PO SCH (08:45)
[2019-02-12] MEDS: SERTRALINE 25 MG TABLET PO SCH (08:45)
[2019-02-12] MEDS: ISOSORBIDE MONONITRATE 60 MG TABLET PO SCH (08:52)
[2019-02-12] MEDS: DOCUSATE SODIUM 100 MG CAPSULE PO SCH (08:54)
[2019-02-12] MEDS: GLIMEPIRIDE 2 MG TABLET PO SCH (08:54)
[2019-02-12] MEDS: INSULIN LISPRO 100 UNIT/ML SUBCUT SCH ×4 (08:54→21:13)
[2019-02-12] MEDS: sitaGLIPtin 25 MG TABLET PO SCH ×2 (08:55→21:08)
[2019-02-12] MEDS ORDERED: predniSONE 20 MG TABLET PO SCH (09:00)
[2019-02-12] MEDS ORDERED: POTASSIUM 99 MG PO SCH (09:00)
[2019-02-12] MEDS: SIMVASTATIN 10 MG TABLET PO SCH (21:09)
[2019-02-13] MEDS: SODIUM CHLORIDE 0.45% 1,000 ML IV SCH ×3 (00:54→17:21)
[2019-02-13] MEDS: VANCOMYCIN 50 MG/ML 60 ML/BOTTLE PO SCH ×4 (03:12→21:41)
[2019-02-13] MEDS: POTASSIUM CHLORIDE 20 MEQ TABLET PO PRN ×3 (04:16→09:50)
[2019-02-13] MEDS: LEVOTHYROXINE 112 MCG TABLET PO SCH (06:17)
[2019-02-13] MEDS: INSULIN LISPRO 100 UNIT/ML SUBCUT SCH ×4 (07:54→23:10)
[2019-02-13] MEDS: ASCORBIC ACID 500 MG TABLET PO SCH (09:47)
[2019-02-13] MEDS: SERTRALINE 25 MG TABLET PO SCH (09:48)
[2019-02-13] MEDS: METHENAMINE HIPPURATE 1 GM TABLET PO SCH ×2 (09:48→21:40)
[2019-02-13] MEDS: METOPROLOL SUCCINATE XL 25 MG TABLET PO SCH (09:48)
[2019-02-13] MEDS: sitaGLIPtin 25 MG TABLET PO SCH ×2 (09:48→21:41)
[2019-02-13] MEDS: RANOLAZINE 500 MG TABLET PO SCH ×2 (09:48→21:40)
[2019-02-13] MEDS: GEMFIBROZIL 600 MG TABLET PO SCH (09:48)
[2019-02-13] MEDS: LOSARTAN 50 MG TABLET PO SCH (09:49)
[2019-02-13] MEDS: PANTOPRAZOLE 40 MG TABLET PO SCH (09:49)
[2019-02-13] MEDS: DILTIAZEM CD 120 MG CAPSULE PO SCH (09:49)
[2019-02-13] MEDS: LORATADINE 10 MG TABLET PO SCH (09:49)
[2019-02-13] MEDS: TAMSULOSIN 0.4 MG CAPSULE PO SCH ×2 (09:50→21:40)
[2019-02-13] MEDS: FUROSEMIDE 40 MG TABLET PO SCH ×2 (09:50→17:12)
[2019-02-13] MEDS: MAGNESIUM OXIDE 400 MG TABLET PO SCH ×2 (09:50→23:10)
[2019-02-13] MEDS: ISOSORBIDE MONONITRATE 60 MG TABLET PO SCH (09:50)
[2019-02-13] MEDS: GABAPENTIN 300 MG CAPSULE PO SCH ×3 (09:50→21:40)
[2019-02-13] MEDS: GLIMEPIRIDE 2 MG TABLET PO SCH (09:50)
[2019-02-13] MEDS: APIXABAN 5 MG TABLET PO SCH ×2 (09:50→21:41)
[2019-02-13] MEDS: SIMVASTATIN 10 MG TABLET PO SCH (21:41)
[2019-02-14] MEDS: SODIUM CHLORIDE 0.45% 1,000 ML IV SCH ×2 (01:00→09:12)
[2019-02-14] MEDS: VANCOMYCIN 50 MG/ML 60 ML/BOTTLE PO SCH ×3 (03:01→14:54)
[2019-02-14] MEDS: LEVOTHYROXINE 112 MCG TABLET PO SCH (06:59)
[2019-02-14] MEDS: DILTIAZEM CD 120 MG CAPSULE PO SCH (09:08)
[2019-02-14] MEDS: TAMSULOSIN 0.4 MG CAPSULE PO SCH ×2 (09:09→22:57)
[2019-02-14] MEDS: METOPROLOL SUCCINATE XL 25 MG TABLET PO SCH (09:09)
[2019-02-14] MEDS: FUROSEMIDE 40 MG TABLET PO SCH ×2 (09:09→17:14)
[2019-02-14] MEDS: METHENAMINE HIPPURATE 1 GM TABLET PO SCH ×2 (09:09→22:57)
[2019-02-14] MEDS: GEMFIBROZIL 600 MG TABLET PO SCH (09:09)
[2019-02-14] MEDS: SERTRALINE 25 MG TABLET PO SCH (09:10)
[2019-02-14] MEDS: RANOLAZINE 500 MG TABLET PO SCH ×2 (09:10→22:58)
[2019-02-14] MEDS: ISOSORBIDE MONONITRATE 60 MG TABLET PO SCH (09:10)
[2019-02-14] MEDS: ASCORBIC ACID 500 MG TABLET PO SCH (09:10)
[2019-02-14] MEDS: GLIMEPIRIDE 2 MG TABLET PO SCH (09:10)
[2019-02-14] MEDS: MAGNESIUM OXIDE 400 MG TABLET PO SCH ×2 (09:11→22:57)
[2019-02-14] MEDS: LORATADINE 10 MG TABLET PO SCH (09:11)
[2019-02-14] MEDS: APIXABAN 5 MG TABLET PO SCH (09:11)
[2019-02-14] MEDS: PANTOPRAZOLE 40 MG TABLET PO SCH (09:11)
[2019-02-14] MEDS: GABAPENTIN 300 MG CAPSULE PO SCH ×3 (09:11→22:58)
[2019-02-14] MEDS: sitaGLIPtin 25 MG TABLET PO SCH ×2 (09:11→22:57)
[2019-02-14] MEDS: LOSARTAN 50 MG TABLET PO SCH (09:12)
[2019-02-14] MEDS: INSULIN LISPRO 100 UNIT/ML SUBCUT SCH ×4 (10:18→22:57)
[2019-02-14] MEDS ORDERED: SODIUM CHLORIDE 0.9% 1,000 ML IV SCH (18:30)
[2019-02-14 18:34] LABS: Basophils % 0.2 % (0.0-0.8); Eosinophils % 0.2 % (0.00-10.9); Hematocrit 29.9 VOL% (42.0-52.0); Immature Granulocytes % 1.5 %; Immature Granulocytes Absolute 0.12 #; Lymphocytes % 12.1 % (21.2-54.2); Mean Corpuscular HGB Conc 33.4 GM/DL (32-36); Mean Corpuscular Volume 93.1 FL (87-102); Mean Platelet Volume 9.3 FL (9.6-12.0); Monocytes % 7.8 % (1.7-12.7); Neutrophils % 78.2 % (38.7-73.9); Platelet Count 162 T/CUMM (130-400); Red Blood Count 3.21 MC/CUMM (3.8-5.5); Red Cell Distribution Width 14.8 % (9.3-17.3); White Blood Count 8.2 T/CUMM (4-12)
[2019-02-14 18:43] LABS: INR 1.3; Partial Thromboplastin Time 32.7 SECS (0-40)
[2019-02-14 19:00] LABS: Albumin 2.1 G/DL (3.4-5.0); Bilirubin,Total 0.6 MG/DL (0.2-1.0); Calcium 7.1 MG/DL (8.5-10.1); Osmolality,Calculated 275.2 MOS/KG (273-304)
[2019-02-14] MEDS: SODIUM CHLORIDE 0.9% 1,000 ML IV SCH (19:00)
[2019-02-14] MEDS ORDERED: ONDANSETRON 4 MG/2 ML VIAL IV ONE (19:30)
[2019-02-14] MEDS ORDERED: ONDANSETRON 4 MG/2 ML VIAL IV PRN (19:32)
[2019-02-14] MEDS ORDERED: SODIUM CHLORIDE 0.9% 250 ML IV ONE (19:47)
[2019-02-14] MEDS ORDERED: NOREPINEPHRINE 4 MG/4 ML VIAL IV ONE (20:00)
[2019-02-14] MEDS ORDERED: MORPHINE 4 MG/1 ML VIAL IV PRN (20:15)
[2019-02-14] MEDS ORDERED: MORPHINE 4 MG/1 ML VIAL ONE (20:16)
[2019-02-14] MEDS: NOREPINEPHRINE 8 MG in SODIUM CHLORIDE 0.9% 242 ML IV PRN (20:21)
[2019-02-14] MEDS ORDERED: SODIUM CHLORIDE 0.9% 1,000 ML IV ONE (20:28)
[2019-02-14 21:19] LABS: ABG Base Excess -10.1 MMOL/L (-2.5-2.5); ABG HCO3 16.4 MMOL/L (20-26); ABG Oxygen Saturation 98.7 % (95-100); ABG PCO2 24.8 MM HG (35-48); ABG PH 7.363 (7.35-7.45); ABG TCO2 12.9 MMOL/L (23-27)
[2019-02-14] MEDS ORDERED: SODIUM CHLORIDE 0.9% 1,000 ML IV PRN (21:27)
[2019-02-14] MEDS ORDERED: SUCCINYLCHOLINE 200 MG/10 ML VIAL ONE (21:29)
[2019-02-14] MEDS ORDERED: ETOMIDATE 20 MG/10 ML VIAL IV ONE (21:29)
[2019-02-14] MEDS ORDERED: PROPOFOL 1,000 MG/100 ML BOTTLE IV ONE (21:39)
[2019-02-14] MEDS ORDERED: HYDROmorphone 2 MG/1 ML VIAL ONE (21:41)
[2019-02-14] MEDS: HYDROmorphone 2 MG/1 ML VIAL IV PRN (21:45)
[2019-02-14] MEDS ORDERED: PANTOPRAZOLE 40 MG VIAL IV ONE ×2 (21:47→21:52)
[2019-02-14] MEDS: PROPOFOL 1,000 MG/100 ML BOTTLE IV SCH (22:30)
[2019-02-14] MEDS: SIMVASTATIN 10 MG TABLET PO SCH (22:58)
[2019-02-14 23:13] LABS: Hematocrit 31.1 VOL% (42.0-52.0); Hemoglobin 10.2 GM/DL (14.0-18.0)
[2019-02-14] MEDS ORDERED: ALBUMIN 5% 12.5 GM/250 ML VIAL IV ONE (23:13)
[2019-02-15] MEDS ORDERED: PHENYLEPHRINE DRIP 40 MG/250 ML PREMIX IV ONE (00:03)
[2019-02-15 00:25] LABS: ABG HCO3 12.5 MMOL/L (20-26); ABG Oxygen Saturation 99.6 % (95-100); ABG PCO2 34.4 MM HG (35-48); ABG TCO2 11.2 MMOL/L (23-27)
[2019-02-15 00:27] LABS: Basophils # 0.1 10*3/uL (0.0-0.2); Basophils % 0.4 % (0.0-0.8); Hematocrit 35.2 VOL% (42.0-52.0); Hemoglobin 11.4 GM/DL (14.0-18.0); Immature Granulocytes % 1.7 %; Immature Granulocytes Absolute 0.27 #; Lymphocytes # 1.1 10*3/uL (1.4-4.0); Lymphocytes % 6.7 % (21.2-54.2); Mean Corpuscular HGB Conc 32.4 GM/DL (32-36); Mean Corpuscular Volume 90.5 FL (87-102); Mean Platelet Volume 9.8 FL (9.6-12.0); Monocytes % 6.6 % (1.7-12.7); Neutrophils % 84.6 % (38.7-73.9); Platelet Count 147 T/CUMM (130-400); Red Blood Count 3.89 MC/CUMM (3.8-5.5); Red Cell Distribution Width 15.9 % (9.3-17.3); White Blood Count 15.9 T/CUMM (4-12)
[2019-02-15 00:31] LABS: ABG PH 7.156 (7.35-7.45)
[2019-02-15 00:37] LABS: Calcium 6.8 MG/DL (8.5-10.1); Osmolality,Calculated 284.7 MOS/KG (273-304)
[2019-02-15] MEDS ORDERED: SODIUM BICARBONATE 50 MEQ/50 ML VIAL IV ONE ×3 (00:59→01:13)
[2019-02-15] MEDS ORDERED: PHENYLEPHRINE DRIP 40 MG/250 ML PREMIX IV PRN (01:06)
[2019-02-15] MEDS ORDERED: NOREPINEPHRINE 4 MG/4 ML VIAL IV ONE (01:09)
[2019-02-15] MEDS ORDERED: CALCIUM CHLORIDE 1,000 MG/10 ML VIAL IV ONE (01:13)
[2019-02-15] MEDS: VANCOMYCIN 50 MG/ML 60 ML/BOTTLE PO SCH ×5 (01:32→20:37)
[2019-02-15] MEDS ORDERED: ALBUMIN 5% 12.5 GM/250 ML VIAL IV ONE (02:05)
[2019-02-15] MEDS ORDERED: SODIUM CHLORIDE 0.9% 1,000 ML IV PRN ×3 (02:15→13:15)
[2019-02-15] MEDS: NOREPINEPHRINE 8 MG in SODIUM CHLORIDE 0.9% 242 ML IV PRN (02:40)
[2019-02-15] MEDS ORDERED: MIDAZOLAM 2 MG/2 ML VIAL ONE (02:58)
[2019-02-15] MEDS ORDERED: SEVOFLURANE 1 UNIT/15 MINUTE INH ONE (02:58)
[2019-02-15] MEDS ORDERED: fentaNYL 100 MCG/2 ML VIAL ONE (02:59)
[2019-02-15] MEDS ORDERED: ETOMIDATE 40 MG/20 ML VIAL IV ONE (02:59)
[2019-02-15] MEDS ORDERED: DEXAMETHASONE 4 MG/1 ML VIAL ONE (02:59)
[2019-02-15] MEDS ORDERED: SODIUM CHLORIDE 0.9% 2,000 ML IV ONE (02:59)
[2019-02-15] MEDS ORDERED: diphenhydrAMINE 50 MG/1 ML VIAL ONE (02:59)
[2019-02-15] MEDS ORDERED: VECURONIUM 10 MG VIAL IV ONE (02:59)
[2019-02-15] MEDS: SODIUM CHLORIDE 0.9% 1,000 ML IV SCH ×3 (03:30→20:04)
[2019-02-15 05:09] LABS: ABG Base Excess -8.6 MMOL/L (-2.5-2.5); ABG HCO3 17.5 MMOL/L (20-26); ABG Oxygen Saturation 99.3 % (95-100); ABG PCO2 38.3 MM HG (35-48); ABG PH 7.271 (7.35-7.45); ABG TCO2 16.4 MMOL/L (23-27)
[2019-02-15 05:57] LABS: Basophils % 0.3 % (0.0-0.8); Hematocrit 27.9 VOL% (42.0-52.0); Hemoglobin 9.3 GM/DL (14.0-18.0); Immature Granulocytes % 0.9 %; Immature Granulocytes Absolute 0.09 #; Lymphocytes # 0.6 10*3/uL (1.4-4.0); Lymphocytes % 6.7 % (21.2-54.2); Mean Corpuscular HGB Conc 33.3 GM/DL (32-36); Mean Corpuscular Volume 89.1 FL (87-102); Mean Platelet Volume 10.1 FL (9.6-12.0); Monocytes % 4.8 % (1.7-12.7); Neutrophils % 87.3 % (38.7-73.9); Platelet Count 123 T/CUMM (130-400); Red Blood Count 3.13 MC/CUMM (3.8-5.5); Red Cell Distribution Width 16.2 % (9.3-17.3); White Blood Count 9.5 T/CUMM (4-12)
[2019-02-15 06:24] LABS: Band Neutrophils 9 % (0-10); Burr Cells Slight; Hypochromasia 1+; Lymphocytes 2 % (20-55); Ovalocytes Slight; Platelet Estimate Normal; Segmented Neutrophils 82 % (50-85); Total Cells Counted 100
[2019-02-15 06:54] LABS: Albumin 2.5 G/DL (3.4-5.0); Bilirubin,Total 1.4 MG/DL (0.2-1.0); Calcium 7.6 MG/DL (8.5-10.1); Osmolality,Calculated 289.3 MOS/KG (273-304); Total Protein 4.8 G/DL (6.4-8.3)
[2019-02-15] MEDS: PROPOFOL 1,000 MG/100 ML BOTTLE IV SCH ×4 (07:10→23:24)
[2019-02-15] MEDS ORDERED: PROPOFOL 1,000 MG/100 ML BOTTLE IV ONE (07:27)
[2019-02-15] MEDS ORDERED: ALBUMIN 5% 25 GM in PREMIX 1 EACH IV ONE (07:33)
[2019-02-15 07:37] LABS: Hematocrit 27.5 VOL% (42.0-52.0); Hemoglobin 9.3 GM/DL (14.0-18.0)
[2019-02-15] MEDS: GLIMEPIRIDE 2 MG TABLET PO SCH (08:11)
[2019-02-15] MEDS: sitaGLIPtin 25 MG TABLET PO SCH ×2 (08:12→20:52)
[2019-02-15] MEDS: LEVOTHYROXINE 112 MCG TABLET PO SCH (08:26)
[2019-02-15] MEDS: cefTRIAXone 1,000 MG in SYRINGE 1 EACH IV SCH (08:30)
[2019-02-15] MEDS: FUROSEMIDE 40 MG TABLET PO SCH ×2 (08:48→17:45)
[2019-02-15] MEDS ORDERED: PROPOFOL 200 MG/20 ML VIAL IV ONE (09:00)
[2019-02-15] MEDS: INSULIN LISPRO 100 UNIT/ML SUBCUT SCH ×4 (09:13→23:58)
[2019-02-15 09:47] LABS: ABG Base Excess -8.3 MMOL/L (-2.5-2.5); ABG HCO3 17.7 MMOL/L (20-26); ABG Oxygen Saturation 99.6 % (95-100); ABG PCO2 31.4 MM HG (35-48); ABG PH 7.334 (7.35-7.45); ABG TCO2 15.6 MMOL/L (23-27)
[2019-02-15] MEDS: LANSOPRAZOLE ODT 30 MG TABLET PER TUBE SCH (10:55)
[2019-02-15] MEDS: HYDROmorphone 2 MG/1 ML VIAL IV PRN ×2 (12:15→17:44)
[2019-02-15 12:20] LABS: Basophils % 0.2 % (0.0-0.8); Hematocrit 24.2 VOL% (42.0-52.0); Hemoglobin 8.2 GM/DL (14.0-18.0); Immature Granulocytes % 0.7 %; Immature Granulocytes Absolute 0.04 #; Lymphocytes # 0.5 10*3/uL (1.4-4.0); Lymphocytes % 9.3 % (21.2-54.2); Mean Corpuscular HGB Conc 33.9 GM/DL (32-36); Mean Corpuscular Volume 87.4 FL (87-102); Mean Platelet Volume 9.8 FL (9.6-12.0); Monocytes % 5.3 % (1.7-12.7); Neutrophils % 84.5 % (38.7-73.9); Platelet Count 101 T/CUMM (130-400); Red Blood Count 2.77 MC/CUMM (3.8-5.5); Red Cell Distribution Width 16.6 % (9.3-17.3); White Blood Count 5.7 T/CUMM (4-12)
[2019-02-15 12:28] LABS: INR 1.3; PT Patient Result 14.2 SECS; Partial Thromboplastin Time 31.8 SECS (0-40)
[2019-02-15 12:40] LABS: Albumin 2.5 G/DL (3.4-5.0); Band Neutrophils 1 % (0-10); Bilirubin,Total 0.7 MG/DL (0.2-1.0); Calcium 7.6 MG/DL (8.5-10.1); Hypochromasia 1+; Lymphocytes 14 % (20-55); Osmolality,Calculated 294.1 MOS/KG (273-304); Ovalocytes Slight; Platelet Estimate Decreased; Segmented Neutrophils 80 % (50-85); Total Cells Counted 100; Total Protein 4.7 G/DL (6.4-8.3)
[2019-02-15] MEDS ORDERED: HEPARIN/NACL 0.9% 2 UNITS/ML 3,000 ML IV ONE (13:01)
[2019-02-15] MEDS: DILTIAZEM CD 120 MG CAPSULE PO SCH (13:16)
[2019-02-15] MEDS: TAMSULOSIN 0.4 MG CAPSULE PO SCH ×2 (13:16→20:52)
[2019-02-15] MEDS: LOSARTAN 50 MG TABLET PO SCH (13:16)
[2019-02-15] MEDS: LORATADINE 10 MG TABLET PO SCH (13:16)
[2019-02-15] MEDS: METHENAMINE HIPPURATE 1 GM TABLET PO SCH ×2 (13:17→20:36)
[2019-02-15] MEDS: GEMFIBROZIL 600 MG TABLET PO SCH (13:17)
[2019-02-15] MEDS: ISOSORBIDE MONONITRATE 60 MG TABLET PO SCH (13:17)
[2019-02-15] MEDS: METOPROLOL SUCCINATE XL 25 MG TABLET PO SCH (13:17)
[2019-02-15] MEDS: GABAPENTIN 300 MG CAPSULE PO SCH ×3 (13:17→20:36)
[2019-02-15] MEDS: MAGNESIUM OXIDE 400 MG TABLET PO SCH ×2 (13:17→20:52)
[2019-02-15] MEDS: RANOLAZINE 500 MG TABLET PO SCH ×2 (13:17→20:36)
[2019-02-15] MEDS: SERTRALINE 25 MG TABLET PO SCH (13:18)
[2019-02-15] MEDS: ASCORBIC ACID 500 MG TABLET PO SCH (13:18)
[2019-02-15 17:22] LABS: Hematocrit 24.9 VOL% (42.0-52.0); Hemoglobin 8.5 GM/DL (14.0-18.0); Immature Granulocytes % 0.6 %; Immature Granulocytes Absolute 0.04 #; Lymphocytes # 0.6 10*3/uL (1.4-4.0); Lymphocytes % 8.9 % (21.2-54.2); Mean Corpuscular HGB Conc 34.1 GM/DL (32-36); Mean Platelet Volume 9.9 FL (9.6-12.0); Monocytes % 5.1 % (1.7-12.7); Neutrophils % 85.4 % (38.7-73.9); Red Blood Count 2.83 MC/CUMM (3.8-5.5); Red Cell Distribution Width 16.6 % (9.3-17.3); White Blood Count 6.4 T/CUMM (4-12)
[2019-02-15 17:24] LABS: Platelet Count 111 T/CUMM (130-400)
[2019-02-15 17:30] LABS: INR 1.2; PT Patient Result 13.4 SECS; Partial Thromboplastin Time 32.8 SECS (0-40)
[2019-02-15 17:41] LABS: Albumin 2.4 G/DL (3.4-5.0); Bilirubin,Total 0.5 MG/DL (0.2-1.0); Calcium 7.3 MG/DL (8.5-10.1); Osmolality,Calculated 289.4 MOS/KG (273-304); Total Protein 4.6 G/DL (6.4-8.3)
[2019-02-15 19:44] LABS: ABG Base Excess -6.2 MMOL/L (-2.5-2.5); ABG HCO3 19.3 MMOL/L (20-26); ABG PCO2 39.3 MM HG (35-48); ABG PH 7.307 (7.35-7.45); ABG TCO2 18.3 MMOL/L (23-27)
[2019-02-15] MEDS: SIMVASTATIN 10 MG TABLET PO SCH (20:36)
[2019-02-16] MEDS: PROPOFOL 1,000 MG/100 ML BOTTLE IV SCH ×5 (04:05→21:48)
[2019-02-16] MEDS: VANCOMYCIN 50 MG/ML 60 ML/BOTTLE PO SCH ×4 (04:05→22:49)
[2019-02-16] MEDS: SODIUM CHLORIDE 0.9% 1,000 ML IV SCH ×4 (04:05→20:01)
[2019-02-16 04:23] LABS: Basophils % 0.1 % (0.0-0.8); Hematocrit 29.9 VOL% (42.0-52.0); Immature Granulocytes % 0.5 %; Immature Granulocytes Absolute 0.05 #; Lymphocytes # 0.5 10*3/uL (1.4-4.0); Lymphocytes % 5.6 % (21.2-54.2); Mean Corpuscular HGB Conc 33.4 GM/DL (32-36); Mean Corpuscular Volume 88.2 FL (87-102); Monocytes % 5.3 % (1.7-12.7); Neutrophils % 88.5 % (38.7-73.9); Platelet Count 115 T/CUMM (130-400); Red Blood Count 3.39 MC/CUMM (3.8-5.5); White Blood Count 9.3 T/CUMM (4-12)
[2019-02-16 04:24] LABS: ABG Base Excess -5.4 MMOL/L (-2.5-2.5); ABG HCO3 20.1 MMOL/L (20-26); ABG PCO2 38.6 MM HG (35-48); ABG PH 7.327 (7.35-7.45); ABG TCO2 17.6 MMOL/L (23-27)
[2019-02-16 04:46] LABS: Albumin 2.5 G/DL (3.4-5.0); Bilirubin,Total 0.6 MG/DL (0.2-1.0); Calcium 7.3 MG/DL (8.5-10.1); Total Protein 5.1 G/DL (6.4-8.3)
[2019-02-16 04:48] LABS: INR 1.1; PT Patient Result 11.8 SECS; Partial Thromboplastin Time 31.8 SECS (0-40)
[2019-02-16] MEDS: HYDROmorphone 2 MG/1 ML VIAL IV PRN (04:55)
[2019-02-16 05:00] LABS: Anisocytosis 1+; Platelet Estimate Adequate
[2019-02-16] MEDS: LEVOTHYROXINE 112 MCG TABLET PO SCH (05:01)
[2019-02-16] MEDS ORDERED: ALBUMIN 5% 25 GM in PREMIX 1 EACH IV ONE (05:33)
[2019-02-16 05:50] LABS: Hematocrit 30.9 VOL% (42.0-52.0); Hemoglobin 10.2 GM/DL (14.0-18.0)
[2019-02-16] MEDS: INSULIN LISPRO 100 UNIT/ML SUBCUT SCH ×3 (06:30→18:50)
[2019-02-16] MEDS: cefTRIAXone 1,000 MG in SYRINGE 1 EACH IV SCH (09:18)
[2019-02-16] MEDS: LORATADINE 10 MG TABLET PO SCH (10:35)
[2019-02-16] MEDS: LOSARTAN 50 MG TABLET PO SCH (10:36)
[2019-02-16] MEDS ORDERED: fentaNYL 100 MCG/2 ML VIAL ONE (10:37)
[2019-02-16] MEDS: ISOSORBIDE MONONITRATE 60 MG TABLET PO SCH (10:37)
[2019-02-16] MEDS: TAMSULOSIN 0.4 MG CAPSULE PO SCH ×2 (10:37→22:47)
[2019-02-16] MEDS ORDERED: PROPOFOL 200 MG/20 ML VIAL IV ONE (10:38)
[2019-02-16] MEDS ORDERED: PHENYLEPHRINE 1 MG/10 ML SYRINGE IV ONE (10:38)
[2019-02-16] MEDS ORDERED: ROCURONIUM 100 MG/10 ML VIAL IV ONE (10:38)
[2019-02-16] MEDS ORDERED: SEVOFLURANE 1 UNIT/15 MINUTE INH ONE (10:38)
[2019-02-16] MEDS: sitaGLIPtin 25 MG TABLET PO SCH ×2 (10:38→22:47)
[2019-02-16] MEDS: METOPROLOL SUCCINATE XL 25 MG TABLET PO SCH (10:38)
[2019-02-16] MEDS: GEMFIBROZIL 600 MG TABLET PO SCH (10:38)
[2019-02-16] MEDS: SERTRALINE 25 MG TABLET PO SCH (10:39)
[2019-02-16] MEDS: GLIMEPIRIDE 2 MG TABLET PO SCH (10:39)
[2019-02-16] MEDS: ASCORBIC ACID 500 MG TABLET PO SCH (10:39)
[2019-02-16] MEDS: RANOLAZINE 500 MG TABLET PO SCH ×2 (10:47→22:48)
[2019-02-16] MEDS: DILTIAZEM CD 120 MG CAPSULE PO SCH (10:47)
[2019-02-16] MEDS: METHENAMINE HIPPURATE 1 GM TABLET PO SCH ×2 (10:48→22:47)
[2019-02-16] MEDS: MAGNESIUM OXIDE 400 MG TABLET PO SCH ×2 (10:48→22:47)
[2019-02-16] MEDS: GABAPENTIN 300 MG CAPSULE PO SCH ×3 (10:48→22:48)
[2019-02-16] MEDS: LANSOPRAZOLE ODT 30 MG TABLET PER TUBE SCH (10:49)
[2019-02-16 11:44] LABS: Basophils % 0.2 % (0.0-0.8); Eosinophils % 0.1 % (0.00-10.9); Hematocrit 28.8 VOL% (42.0-52.0); Hemoglobin 9.4 GM/DL (14.0-18.0); Immature Granulocytes % 0.9 %; Immature Granulocytes Absolute 0.09 #; Lymphocytes # 0.5 10*3/uL (1.4-4.0); Lymphocytes % 4.8 % (21.2-54.2); Mean Corpuscular HGB Conc 32.6 GM/DL (32-36); Mean Platelet Volume 9.5 FL (9.6-12.0); Monocytes % 4.2 % (1.7-12.7); Neutrophils % 89.8 % (38.7-73.9); Platelet Count 108 T/CUMM (130-400); Red Cell Distribution Width 17.2 % (9.3-17.3); White Blood Count 10.4 T/CUMM (4-12)
[2019-02-16] MEDS: FUROSEMIDE 40 MG TABLET PO SCH ×2 (11:58→16:54)
[2019-02-16 12:11] LABS: Albumin 2.3 G/DL (3.4-5.0); Bilirubin,Total 0.5 MG/DL (0.2-1.0); Calcium 7.8 MG/DL (8.5-10.1); Total Protein 4.9 G/DL (6.4-8.3)
[2019-02-16 12:29] LABS: Band Neutrophils 4 % (0-10); Hypochromasia 1+; Lymphocytes 7 % (20-55); Platelet Estimate Decreased; Segmented Neutrophils 87 % (50-85); Total Cells Counted 100
[2019-02-16 14:05] LABS: ABG Base Excess -5.4 MMOL/L (-2.5-2.5); ABG HCO3 19.9 MMOL/L (20-26); ABG Oxygen Saturation 99.2 % (95-100); ABG PCO2 38.9 MM HG (35-48); ABG PH 7.323 (7.35-7.45); ABG TCO2 18.7 MMOL/L (23-27)
[2019-02-16 16:05] LABS: Hematocrit 27.2 VOL% (42.0-52.0)
[2019-02-16] MEDS: SIMVASTATIN 10 MG TABLET PO SCH (22:49)
[2019-02-17] MEDS: INSULIN LISPRO 100 UNIT/ML SUBCUT SCH ×4 (00:21→19:22)
[2019-02-17] MEDS: PROPOFOL 1,000 MG/100 ML BOTTLE IV SCH ×3 (04:01→19:08)
[2019-02-17] MEDS: SODIUM CHLORIDE 0.9% 1,000 ML IV SCH ×4 (04:01→22:09)
[2019-02-17] MEDS: LEVOTHYROXINE 112 MCG TABLET PO SCH (05:45)
[2019-02-17] MEDS: VANCOMYCIN 50 MG/ML 60 ML/BOTTLE PO SCH ×4 (05:56→21:15)
[2019-02-17 06:36] LABS: Basophils % 0.1 % (0.0-0.8); Eosinophils % 0.1 % (0.00-10.9); Immature Granulocytes Absolute 0.12 #; Lymphocytes # 0.5 10*3/uL (1.4-4.0); Lymphocytes % 3.8 % (21.2-54.2); Mean Corpuscular HGB Conc 32.1 GM/DL (32-36); Mean Corpuscular Volume 90.9 FL (87-102); Mean Platelet Volume 9.6 FL (9.6-12.0); Monocytes % 3.7 % (1.7-12.7); Neutrophils % 91.3 % (38.7-73.9); Platelet Count 122 T/CUMM (130-400); Red Blood Count 3.08 MC/CUMM (3.8-5.5); Red Cell Distribution Width 17.5 % (9.3-17.3); White Blood Count 12.5 T/CUMM (4-12)
[2019-02-17 06:46] LABS: PT Patient Result 10.9 SECS; Partial Thromboplastin Time 33.2 SECS (0-40)
[2019-02-17 06:56] LABS: Bilirubin,Total 0.6 MG/DL (0.2-1.0); Calcium 7.2 MG/DL (8.5-10.1); Osmolality,Calculated 292.7 MOS/KG (273-304); Total Protein 4.7 G/DL (6.4-8.3)
[2019-02-17 07:04] LABS: Band Neutrophils 1 % (0-10); Lymphocytes 2 % (20-55); Segmented Neutrophils 95 % (50-85); Total Cells Counted 100
[2019-02-17 07:05] LABS: Hypochromasia 1+; Microcytosis Slight; Ovalocytes Few; Platelet Estimate Adequate; Polychromasia Slight
[2019-02-17] MEDS: HYDROmorphone 2 MG/1 ML VIAL IV PRN ×2 (10:32→15:06)
[2019-02-17] MEDS: FUROSEMIDE 40 MG TABLET PO SCH ×2 (15:07→15:59)
[2019-02-17] MEDS: DILTIAZEM CD 120 MG CAPSULE PO SCH (15:07)
[2019-02-17] MEDS: GLIMEPIRIDE 2 MG TABLET PO SCH (15:07)
[2019-02-17] MEDS: METHENAMINE HIPPURATE 1 GM TABLET PO SCH ×2 (15:08→21:14)
[2019-02-17] MEDS: TAMSULOSIN 0.4 MG CAPSULE PO SCH ×2 (15:08→21:26)
[2019-02-17] MEDS: LOSARTAN 50 MG TABLET PO SCH (15:08)
[2019-02-17] MEDS: LORATADINE 10 MG TABLET PO SCH (15:08)
[2019-02-17] MEDS: GEMFIBROZIL 600 MG TABLET PO SCH (15:09)
[2019-02-17] MEDS: GABAPENTIN 300 MG CAPSULE PO SCH ×3 (15:09→21:14)
[2019-02-17] MEDS: ISOSORBIDE MONONITRATE 60 MG TABLET PO SCH (15:09)
[2019-02-17] MEDS: MAGNESIUM OXIDE 400 MG TABLET PO SCH ×2 (15:09→21:14)
[2019-02-17] MEDS: sitaGLIPtin 25 MG TABLET PO SCH ×2 (15:09→21:26)
[2019-02-17] MEDS: LANSOPRAZOLE ODT 30 MG TABLET PER TUBE SCH (15:10)
[2019-02-17] MEDS: RANOLAZINE 500 MG TABLET PO SCH ×2 (15:10→21:26)
[2019-02-17] MEDS: METOPROLOL SUCCINATE XL 25 MG TABLET PO SCH (15:10)
[2019-02-17] MEDS: SERTRALINE 25 MG TABLET PO SCH (15:11)
[2019-02-17] MEDS: ASCORBIC ACID 500 MG TABLET PO SCH (15:11)
[2019-02-17] MEDS: cefTRIAXone 1,000 MG in SYRINGE 1 EACH IV SCH (15:58)
[2019-02-17] MEDS: SIMVASTATIN 10 MG TABLET PO SCH (21:26)
[2019-02-18] MEDS: INSULIN LISPRO 100 UNIT/ML SUBCUT SCH ×4 (01:03→18:23)
[2019-02-18] MEDS: HYDROmorphone 2 MG/1 ML VIAL IV PRN ×3 (01:41→18:23)
[2019-02-18] MEDS: VANCOMYCIN 50 MG/ML 60 ML/BOTTLE PO SCH ×4 (03:09→22:57)
[2019-02-18] MEDS: PROPOFOL 1,000 MG/100 ML BOTTLE IV SCH ×2 (03:19→14:08)
[2019-02-18 03:46] LABS: ABG Base Excess -3.5 MMOL/L (-2.5-2.5); ABG HCO3 21.5 MMOL/L (20-26); ABG Oxygen Saturation 97.1 % (95-100); ABG PCO2 43.1 MM HG (35-48); ABG PH 7.325 (7.35-7.45); ABG PO2 90.6 MM HG (80-95); ABG TCO2 20.8 MMOL/L (23-27); Allen Test Positive; Pt O2 Delivery Device Ventilator
[2019-02-18 04:47] LABS: Basophils % 0.1 % (0.0-0.8); Eosinophils % 0.2 % (0.00-10.9); Hematocrit 26.5 VOL% (42.0-52.0); Hemoglobin 8.7 GM/DL (14.0-18.0); Immature Granulocytes % 0.8 %; Immature Granulocytes Absolute 0.08 #; Lymphocytes # 0.9 10*3/uL (1.4-4.0); Lymphocytes % 8.2 % (21.2-54.2); Mean Corpuscular HGB Conc 32.8 GM/DL (32-36); Monocytes % 4.5 % (1.7-12.7); NRBC # 0.02 10*3/uL; Neutrophils % 86.2 % (38.7-73.9); Platelet Count 128 T/CUMM (130-400); Red Blood Count 2.88 MC/CUMM (3.8-5.5); Red Cell Distribution Width 17.4 % (9.3-17.3); White Blood Count 10.6 T/CUMM (4-12)
[2019-02-18 04:52] LABS: PT Patient Result 10.8 SECS
[2019-02-18 05:04] LABS: Albumin 1.8 G/DL (3.4-5.0); Bilirubin,Total 0.4 MG/DL (0.2-1.0); Calcium 7.3 MG/DL (8.5-10.1); Osmolality,Calculated 298.4 MOS/KG (273-304); Total Protein 4.8 G/DL (6.4-8.3)
[2019-02-18] MEDS: LEVOTHYROXINE 112 MCG TABLET PO SCH (06:36)
[2019-02-18] MEDS: SODIUM CHLORIDE 0.9% 1,000 ML IV SCH ×2 (06:36→14:09)
[2019-02-18] MEDS: FUROSEMIDE 40 MG TABLET PO SCH ×2 (08:28→16:12)
[2019-02-18] MEDS: GLIMEPIRIDE 2 MG TABLET PO SCH (08:28)
[2019-02-18] MEDS ORDERED: MICROFIBRILLAR COLLAGEN POWDER 1 GM CAN TOP ONE (09:08)
[2019-02-18] MEDS ORDERED: SEVOFLURANE 1 UNIT/15 MINUTE INH ONE (10:22)
[2019-02-18] MEDS ORDERED: MIDAZOLAM 2 MG/2 ML VIAL ONE (10:22)
[2019-02-18] MEDS ORDERED: fentaNYL 100 MCG/2 ML VIAL ONE (10:22)
[2019-02-18] MEDS ORDERED: ONDANSETRON 4 MG/2 ML VIAL ONE (10:23)
[2019-02-18] MEDS ORDERED: ACETAMINOPHEN 1,000 MG/100 ML VIAL IV ONE (10:23)
[2019-02-18] MEDS ORDERED: PHENYLEPHRINE 10 MG/1 ML VIAL IV ONE (10:23)
[2019-02-18] MEDS ORDERED: DEXAMETHASONE 4 MG/1 ML VIAL ONE (10:23)
[2019-02-18] MEDS ORDERED: ROCURONIUM 100 MG/10 ML VIAL IV ONE (10:24)
[2019-02-18] MEDS ORDERED: PHENYLEPHRINE 1 MG/10 ML SYRINGE IV ONE (10:24)
[2019-02-18] MEDS ORDERED: SODIUM CHLORIDE 0.9% 250 ML IV ONE (10:24)
[2019-02-18 12:40] LABS: Hematocrit 29.8 VOL% (42.0-52.0); Hemoglobin 9.4 GM/DL (14.0-18.0)
[2019-02-18] MEDS: LORATADINE 10 MG TABLET PO SCH (13:30)
[2019-02-18] MEDS: LOSARTAN 50 MG TABLET PO SCH (13:30)
[2019-02-18] MEDS: MULTIVITAMIN LIQUID (CENTRUM) 60 ML BOTTLE PEG SCH (13:30)
[2019-02-18] MEDS: DILTIAZEM CD 120 MG CAPSULE PO SCH (13:30)
[2019-02-18] MEDS: TAMSULOSIN 0.4 MG CAPSULE PO SCH ×2 (13:30→21:41)
[2019-02-18] MEDS: METHENAMINE HIPPURATE 1 GM TABLET PO SCH ×2 (13:31→21:41)
[2019-02-18] MEDS: MAGNESIUM OXIDE 400 MG TABLET PO SCH ×2 (13:31→21:42)
[2019-02-18] MEDS: sitaGLIPtin 25 MG TABLET PO SCH ×2 (13:31→21:41)
[2019-02-18] MEDS: GEMFIBROZIL 600 MG TABLET PO SCH (13:31)
[2019-02-18] MEDS: ISOSORBIDE MONONITRATE 60 MG TABLET PO SCH (13:31)
[2019-02-18] MEDS: METOPROLOL SUCCINATE XL 25 MG TABLET PO SCH (13:32)
[2019-02-18] MEDS: ASCORBIC ACID 500 MG TABLET PO SCH (13:32)
[2019-02-18] MEDS: GABAPENTIN 300 MG CAPSULE PO SCH ×3 (13:32→21:41)
[2019-02-18] MEDS: LANSOPRAZOLE ODT 30 MG TABLET PER TUBE SCH (13:32)
[2019-02-18] MEDS: RANOLAZINE 500 MG TABLET PO SCH ×2 (13:32→21:43)
[2019-02-18] MEDS: SERTRALINE 25 MG TABLET PO SCH (13:33)
[2019-02-18] MEDS: cefTRIAXone 1,000 MG in SYRINGE 1 EACH IV SCH (16:12)
[2019-02-18 20:19] LABS: Hematocrit 28.9 VOL% (42.0-52.0)
[2019-02-18] MEDS: SIMVASTATIN 10 MG TABLET PO SCH (21:41)
[2019-02-19] MEDS: SODIUM CHLORIDE 0.9% 1,000 ML IV SCH ×4 (00:25→23:54)
[2019-02-19] MEDS: INSULIN LISPRO 100 UNIT/ML SUBCUT SCH ×5 (00:53→23:31)
[2019-02-19] MEDS: HYDROmorphone 2 MG/1 ML VIAL IV PRN (02:12)
[2019-02-19] MEDS: PROPOFOL 1,000 MG/100 ML BOTTLE IV SCH ×3 (02:13→23:28)
[2019-02-19 02:57] LABS: ABG Base Excess -3.5 MMOL/L (-2.5-2.5); ABG HCO3 21.5 MMOL/L (20-26); ABG Oxygen Saturation 99.2 % (95-100); ABG PCO2 40.9 MM HG (35-48); ABG PH 7.339 (7.35-7.45); ABG TCO2 20.4 MMOL/L (23-27); Pt O2 Delivery Device Ventilator
[2019-02-19] MEDS: VANCOMYCIN 50 MG/ML 60 ML/BOTTLE PO SCH ×4 (04:02→21:48)
[2019-02-19] MEDS: LEVOTHYROXINE 112 MCG TABLET PO SCH (06:45)
[2019-02-19] MEDS ORDERED: PANTOPRAZOLE 40 MG VIAL IV ONE (07:07)
[2019-02-19 08:34] LABS: Basophils % 0.1 % (0.0-0.8); Eosinophils % 0.5 % (0.00-10.9); Hematocrit 28.7 VOL% (42.0-52.0); Hemoglobin 8.9 GM/DL (14.0-18.0); Immature Granulocytes % 0.8 %; Immature Granulocytes Absolute 0.07 #; Lymphocytes # 0.8 10*3/uL (1.4-4.0); Lymphocytes % 8.8 % (21.2-54.2); Mean Platelet Volume 10.3 FL (9.6-12.0); Monocytes % 4.7 % (1.7-12.7); Neutrophils % 85.1 % (38.7-73.9); Platelet Count 129 T/CUMM (130-400); Red Blood Count 3.02 MC/CUMM (3.8-5.5); Red Cell Distribution Width 17.3 % (9.3-17.3); White Blood Count 8.7 T/CUMM (4-12)
[2019-02-19 08:58] LABS: Calcium 7.4 MG/DL (8.5-10.1); Osmolality,Calculated 300.7 MOS/KG (273-304)
[2019-02-19] MEDS ORDERED: PANTOPRAZOLE 40 MG VIAL IV SCH (09:00)
[2019-02-19] MEDS: ASCORBIC ACID 500 MG TABLET PO SCH (09:27)
[2019-02-19] MEDS: TAMSULOSIN 0.4 MG CAPSULE PO SCH ×2 (09:28→21:04)
[2019-02-19] MEDS: FUROSEMIDE 40 MG TABLET PO SCH ×2 (09:28→16:45)
[2019-02-19] MEDS: GABAPENTIN 300 MG CAPSULE PO SCH ×3 (09:28→21:03)
[2019-02-19] MEDS: METHENAMINE HIPPURATE 1 GM TABLET PO SCH ×2 (09:28→21:04)
[2019-02-19] MEDS: MAGNESIUM OXIDE 400 MG TABLET PO SCH ×2 (09:28→21:04)
[2019-02-19] MEDS: SERTRALINE 25 MG TABLET PO SCH (09:28)
[2019-02-19] MEDS: POTASSIUM CHLORIDE 20 MEQ TABLET PO PRN ×2 (09:28→12:29)
[2019-02-19] MEDS: LORATADINE 10 MG TABLET PO SCH (09:28)
[2019-02-19] MEDS: LANSOPRAZOLE ODT 30 MG TABLET PER TUBE SCH (09:29)
[2019-02-19] MEDS: DILTIAZEM CD 120 MG CAPSULE PO SCH (09:30)
[2019-02-19] MEDS: GLIMEPIRIDE 2 MG TABLET PO SCH (09:30)
[2019-02-19] MEDS: LOSARTAN 50 MG TABLET PO SCH (09:31)
[2019-02-19] MEDS: sitaGLIPtin 25 MG TABLET PO SCH ×2 (09:31→21:03)
[2019-02-19] MEDS: METOPROLOL SUCCINATE XL 25 MG TABLET PO SCH (09:31)
[2019-02-19] MEDS: ISOSORBIDE MONONITRATE 60 MG TABLET PO SCH (09:31)
[2019-02-19] MEDS: MULTIVITAMIN LIQUID (CENTRUM) 60 ML BOTTLE PEG SCH (09:40)
[2019-02-19] MEDS: RANOLAZINE 500 MG TABLET PO SCH ×2 (09:44→21:01)
[2019-02-19] MEDS: GEMFIBROZIL 600 MG TABLET PO SCH (09:54)
[2019-02-19 13:33] LABS: Hematocrit 28.7 VOL% (42.0-52.0)
[2019-02-19] MEDS: cefTRIAXone 1,000 MG in SYRINGE 1 EACH IV SCH (15:44)
[2019-02-19] MEDS: SIMVASTATIN 10 MG TABLET PO SCH (21:03)
[2019-02-19] MEDS: PANTOPRAZOLE 40 MG VIAL IV SCH (21:04)
[2019-02-20] MEDS: PROPOFOL 1,000 MG/100 ML BOTTLE IV SCH ×2 (02:05→21:59)
[2019-02-20] MEDS: VANCOMYCIN 50 MG/ML 60 ML/BOTTLE PO SCH ×4 (02:07→21:17)
[2019-02-20 03:19] LABS: ABG Base Excess 0.6 MMOL/L (-2.5-2.5); ABG Oxygen Saturation 99.3 % (95-100); ABG PCO2 37.4 MM HG (35-48); ABG PH 7.429 (7.35-7.45); ABG TCO2 22.5 MMOL/L (23-27); Allen Test Positive; Pt O2 Delivery Device Ventilator
[2019-02-20 03:22] LABS: Basophils % 0.2 % (0.0-0.8); Eosinophils # 0.1 10*3/uL (0.0-0.87); Eosinophils % 2.2 % (0.00-10.9); Hematocrit 29.2 VOL% (42.0-52.0); Hemoglobin 9.2 GM/DL (14.0-18.0); Immature Granulocytes % 0.9 %; Immature Granulocytes Absolute 0.05 #; Lymphocytes # 0.8 10*3/uL (1.4-4.0); Lymphocytes % 13.8 % (21.2-54.2); Mean Corpuscular HGB Conc 31.5 GM/DL (32-36); Mean Corpuscular Volume 94.2 FL (87-102); Mean Platelet Volume 10.2 FL (9.6-12.0); Monocytes % 7.2 % (1.7-12.7); NRBC # 0.02 10*3/uL; Neutrophils % 75.7 % (38.7-73.9); Platelet Count 151 T/CUMM (130-400); Red Cell Distribution Width 17.1 % (9.3-17.3); White Blood Count 5.4 T/CUMM (4-12)
[2019-02-20 03:35] LABS: Calcium 7.3 MG/DL (8.5-10.1); Osmolality,Calculated 298.6 MOS/KG (273-304)
[2019-02-20] MEDS: INSULIN LISPRO 100 UNIT/ML SUBCUT SCH ×4 (05:43→23:59)
[2019-02-20] MEDS: LEVOTHYROXINE 112 MCG TABLET PO SCH (05:43)
[2019-02-20] MEDS: POTASSIUM CHLORIDE 20 MEQ/15 ML UDCUP PER TUBE PRN ×2 (05:44→08:04)
[2019-02-20] MEDS: SODIUM CHLORIDE 0.9% 1,000 ML IV SCH ×4 (08:01→23:59)
[2019-02-20] MEDS: ASCORBIC ACID 500 MG TABLET PO SCH (08:20)
[2019-02-20] MEDS: TAMSULOSIN 0.4 MG CAPSULE PO SCH ×2 (08:20→21:16)
[2019-02-20] MEDS: MAGNESIUM OXIDE 400 MG TABLET PO SCH ×2 (08:20→21:16)
[2019-02-20] MEDS: sitaGLIPtin 25 MG TABLET PO SCH ×2 (08:20→21:16)
[2019-02-20] MEDS: GABAPENTIN 300 MG CAPSULE PO SCH ×3 (08:20→21:16)
[2019-02-20] MEDS: LORATADINE 10 MG TABLET PO SCH (08:21)
[2019-02-20] MEDS: FUROSEMIDE 40 MG TABLET PO SCH ×2 (08:21→18:05)
[2019-02-20] MEDS: METHENAMINE HIPPURATE 1 GM TABLET PO SCH (08:21)
[2019-02-20] MEDS: SERTRALINE 25 MG TABLET PO SCH (08:21)
[2019-02-20] MEDS: MULTIVITAMIN LIQUID (CENTRUM) 60 ML BOTTLE PEG SCH (08:31)
[2019-02-20] MEDS: PANTOPRAZOLE 40 MG VIAL IV SCH ×2 (08:34→21:17)
[2019-02-20] MEDS: LOSARTAN 50 MG TABLET PO SCH (11:11)
[2019-02-20] MEDS: GEMFIBROZIL 600 MG TABLET PO SCH (11:12)
[2019-02-20] MEDS: RANOLAZINE 500 MG TABLET PO SCH ×2 (11:13→21:16)
[2019-02-20] MEDS: ISOSORBIDE MONONITRATE 60 MG TABLET PO SCH (11:13)
[2019-02-20] MEDS: GLIMEPIRIDE 2 MG TABLET PO SCH (11:13)
[2019-02-20] MEDS: DILTIAZEM CD 120 MG CAPSULE PO SCH (13:21)
[2019-02-20] MEDS: ENOXAPARIN 40 MG/0.4 ML SYRINGE SUBCUT SCH (13:21)
[2019-02-20] MEDS: METOPROLOL SUCCINATE XL 25 MG TABLET PO SCH (13:21)
[2019-02-20] MEDS: cefTRIAXone 1,000 MG in SYRINGE 1 EACH IV SCH (15:49)
[2019-02-20] MEDS: SIMVASTATIN 10 MG TABLET PO SCH (21:16)
[2019-02-21] MEDS: LEVOTHYROXINE 112 MCG TABLET PO SCH (05:40)
[2019-02-21 06:11] LABS: Calcium 7.6 MG/DL (8.5-10.1); Osmolality,Calculated 284.1 MOS/KG (273-304)
[2019-02-21] MEDS: INSULIN LISPRO 100 UNIT/ML SUBCUT SCH ×3 (06:26→17:37)
[2019-02-21] MEDS: VANCOMYCIN 50 MG/ML 60 ML/BOTTLE PO SCH ×3 (06:44→17:37)
[2019-02-21 07:21] LABS: Basophils % 0.4 % (0.0-0.8); Eosinophils # 0.1 10*3/uL (0.0-0.87); Eosinophils % 2.3 % (0.00-10.9); Hematocrit 25.8 VOL% (42.0-52.0); Hemoglobin 8.3 GM/DL (14.0-18.0); Immature Granulocytes % 1.5 %; Immature Granulocytes Absolute 0.07 #; Lymphocytes # 0.9 10*3/uL (1.4-4.0); Lymphocytes % 18.6 % (21.2-54.2); Mean Corpuscular HGB Conc 32.2 GM/DL (32-36); Mean Corpuscular Volume 92.8 FL (87-102); Mean Platelet Volume 10.3 FL (9.6-12.0); Monocytes % 5.9 % (1.7-12.7); Neutrophils % 71.3 % (38.7-73.9); Platelet Count 148 T/CUMM (130-400); Red Blood Count 2.78 MC/CUMM (3.8-5.5); Red Cell Distribution Width 16.6 % (9.3-17.3); White Blood Count 4.8 T/CUMM (4-12)
[2019-02-21] MEDS: RANOLAZINE 500 MG TABLET PO SCH ×2 (08:32→22:20)
[2019-02-21] MEDS: DILTIAZEM CD 120 MG CAPSULE PO SCH (08:32)
[2019-02-21] MEDS ORDERED: DEXTROSE 50% 25 GM/50 ML VIAL IV PRN (08:33)
[2019-02-21] MEDS: sitaGLIPtin 25 MG TABLET PO SCH ×2 (08:33→22:20)
[2019-02-21] MEDS: GLIMEPIRIDE 2 MG TABLET PO SCH (08:33)
[2019-02-21] MEDS: GEMFIBROZIL 600 MG TABLET PO SCH (08:33)
[2019-02-21] MEDS: FUROSEMIDE 40 MG TABLET PO SCH ×2 (08:34→17:37)
[2019-02-21] MEDS: ASCORBIC ACID 500 MG TABLET PO SCH (08:34)
[2019-02-21] MEDS: LORATADINE 10 MG TABLET PO SCH (08:34)
[2019-02-21] MEDS: MAGNESIUM OXIDE 400 MG TABLET PO SCH ×2 (08:34→22:20)
[2019-02-21] MEDS: SERTRALINE 25 MG TABLET PO SCH (08:34)
[2019-02-21] MEDS: GABAPENTIN 300 MG CAPSULE PO SCH ×3 (08:34→22:20)
[2019-02-21] MEDS: PANTOPRAZOLE 40 MG VIAL IV SCH (08:48)
[2019-02-21] MEDS: SODIUM CHLORIDE 0.9% 1,000 ML IV SCH (08:48)
[2019-02-21] MEDS ORDERED: MULTIVITAMIN (CENTRUM) TABLET ONE (09:15)
[2019-02-21] MEDS: MULTIVITAMIN (CENTRUM) TABLET PO SCH (09:18)
[2019-02-21] MEDS: TAMSULOSIN 0.4 MG CAPSULE PO SCH ×2 (09:39→22:20)
[2019-02-21] MEDS: METOPROLOL SUCCINATE XL 25 MG TABLET PO SCH (09:39)
[2019-02-21] MEDS: LOSARTAN 50 MG TABLET PO SCH (09:44)
[2019-02-21] MEDS: ISOSORBIDE MONONITRATE 60 MG TABLET PO SCH (09:44)
[2019-02-21] MEDS ORDERED: POTASSIUM CHLORIDE 20 MEQ TABLET PO ONE (09:57)
[2019-02-21] MEDS: POTASSIUM CHLORIDE 20 MEQ TABLET PO PRN ×4 (10:00→17:37)
[2019-02-21] MEDS: ENOXAPARIN 40 MG/0.4 ML SYRINGE SUBCUT SCH (12:28)
[2019-02-21] MEDS: PANTOPRAZOLE 40 MG TABLET PO SCH ×2 (13:11→22:20)
[2019-02-21] MEDS: cefTRIAXone 1,000 MG in SYRINGE 1 EACH IV SCH (15:41)
[2019-02-21] MEDS: SIMVASTATIN 10 MG TABLET PO SCH (22:20)
[2019-02-21] MEDS: PROPOFOL 1,000 MG/100 ML BOTTLE IV SCH (22:53)
[2019-02-22] MEDS: INSULIN LISPRO 100 UNIT/ML SUBCUT SCH ×4 (00:05→18:09)
[2019-02-22] MEDS: VANCOMYCIN 50 MG/ML 60 ML/BOTTLE PO SCH ×4 (00:05→18:09)
[2019-02-22 05:15] LABS: Basophils % 0.2 % (0.0-0.8); Eosinophils # 0.1 10*3/uL (0.0-0.87); Eosinophils % 2.3 % (0.00-10.9); Hematocrit 24.7 VOL% (42.0-52.0); Hemoglobin 8.1 GM/DL (14.0-18.0); Immature Granulocytes % 0.6 %; Immature Granulocytes Absolute 0.03 #; Lymphocytes # 0.9 10*3/uL (1.4-4.0); Lymphocytes % 19.1 % (21.2-54.2); Mean Corpuscular HGB Conc 32.8 GM/DL (32-36); Mean Corpuscular Volume 92.5 FL (87-102); Mean Platelet Volume 10.6 FL (9.6-12.0); Monocytes % 7.1 % (1.7-12.7); Neutrophils % 70.7 % (38.7-73.9); Platelet Count 143 T/CUMM (130-400); Red Blood Count 2.67 MC/CUMM (3.8-5.5); Red Cell Distribution Width 16.4 % (9.3-17.3); White Blood Count 4.8 T/CUMM (4-12)
[2019-02-22 05:26] LABS: Calcium 7.7 MG/DL (8.5-10.1); Osmolality,Calculated 278.7 MOS/KG (273-304)
[2019-02-22] MEDS: LEVOTHYROXINE 112 MCG TABLET PO SCH (06:50)
[2019-02-22] MEDS: METOPROLOL SUCCINATE XL 25 MG TABLET PO SCH (08:42)
[2019-02-22] MEDS: MULTIVITAMIN (CENTRUM) TABLET PO SCH (08:42)
[2019-02-22] MEDS: GLIMEPIRIDE 2 MG TABLET PO SCH (08:42)
[2019-02-22] MEDS: RANOLAZINE 500 MG TABLET PO SCH ×2 (08:42→21:18)
[2019-02-22] MEDS: TAMSULOSIN 0.4 MG CAPSULE PO SCH ×2 (08:42→21:18)
[2019-02-22] MEDS: PANTOPRAZOLE 40 MG TABLET PO SCH ×2 (08:43→21:18)
[2019-02-22] MEDS: sitaGLIPtin 25 MG TABLET PO SCH ×2 (08:43→21:18)
[2019-02-22] MEDS: DILTIAZEM CD 120 MG CAPSULE PO SCH (08:43)
[2019-02-22] MEDS: ASCORBIC ACID 500 MG TABLET PO SCH (08:43)
[2019-02-22] MEDS: SERTRALINE 25 MG TABLET PO SCH (08:43)
[2019-02-22] MEDS: GABAPENTIN 300 MG CAPSULE PO SCH ×3 (08:43→21:18)
[2019-02-22] MEDS: MAGNESIUM OXIDE 400 MG TABLET PO SCH ×2 (08:43→21:17)
[2019-02-22] MEDS: FUROSEMIDE 40 MG TABLET PO SCH ×2 (08:43→18:08)
[2019-02-22] MEDS: GEMFIBROZIL 600 MG TABLET PO SCH (08:43)
[2019-02-22] MEDS: LORATADINE 10 MG TABLET PO SCH (08:43)
[2019-02-22] MEDS: ENOXAPARIN 40 MG/0.4 ML SYRINGE SUBCUT SCH (11:55)
[2019-02-22] MEDS: SIMVASTATIN 10 MG TABLET PO SCH (21:17)
[2019-02-22] MEDS: LACTOBACILLUS RHAMNOSUS GG CAPSULE PO SCH (21:18)
[2019-02-23] MEDS: VANCOMYCIN 50 MG/ML 60 ML/BOTTLE PO SCH ×4 (00:50→18:12)
[2019-02-23] MEDS: INSULIN LISPRO 100 UNIT/ML SUBCUT SCH ×4 (01:28→18:12)
[2019-02-23 05:32] LABS: Basophils % 0.2 % (0.0-0.8); Eosinophils # 0.1 10*3/uL (0.0-0.87); Eosinophils % 1.3 % (0.00-10.9); Hematocrit 25.3 VOL% (42.0-52.0); Hemoglobin 8.2 GM/DL (14.0-18.0); Immature Granulocytes % 0.7 %; Immature Granulocytes Absolute 0.04 #; Lymphocytes % 18.7 % (21.2-54.2); Mean Corpuscular HGB Conc 32.4 GM/DL (32-36); Mean Corpuscular Volume 91.7 FL (87-102); Mean Platelet Volume 10.6 FL (9.6-12.0); Neutrophils % 71.1 % (38.7-73.9); Platelet Count 169 T/CUMM (130-400); Red Blood Count 2.76 MC/CUMM (3.8-5.5); Red Cell Distribution Width 16.2 % (9.3-17.3); White Blood Count 5.4 T/CUMM (4-12)
[2019-02-23 06:04] LABS: Calcium 7.8 MG/DL (8.5-10.1); Osmolality,Calculated 271.5 MOS/KG (273-304)
[2019-02-23] MEDS: LEVOTHYROXINE 112 MCG TABLET PO SCH (06:04)
[2019-02-23] MEDS: GABAPENTIN 300 MG CAPSULE PO SCH ×3 (09:29→22:14)
[2019-02-23] MEDS: MAGNESIUM OXIDE 400 MG TABLET PO SCH ×2 (09:30→22:14)
[2019-02-23] MEDS: DILTIAZEM CD 120 MG CAPSULE PO SCH (09:30)
[2019-02-23] MEDS: ASCORBIC ACID 500 MG TABLET PO SCH (09:30)
[2019-02-23] MEDS: GLIMEPIRIDE 2 MG TABLET PO SCH (09:30)
[2019-02-23] MEDS: PANTOPRAZOLE 40 MG TABLET PO SCH ×2 (09:30→22:12)
[2019-02-23] MEDS: sitaGLIPtin 25 MG TABLET PO SCH ×2 (09:30→22:13)
[2019-02-23] MEDS: SERTRALINE 25 MG TABLET PO SCH (09:30)
[2019-02-23] MEDS: FUROSEMIDE 40 MG TABLET PO SCH ×2 (09:30→16:45)
[2019-02-23] MEDS: LACTOBACILLUS RHAMNOSUS GG CAPSULE PO SCH ×2 (09:30→22:14)
[2019-02-23] MEDS: GEMFIBROZIL 600 MG TABLET PO SCH (09:30)
[2019-02-23] MEDS: LORATADINE 10 MG TABLET PO SCH (09:30)
[2019-02-23] MEDS: MULTIVITAMIN (CENTRUM) TABLET PO SCH (09:30)
[2019-02-23] MEDS: TAMSULOSIN 0.4 MG CAPSULE PO SCH ×2 (09:30→22:14)
[2019-02-23] MEDS: RANOLAZINE 500 MG TABLET PO SCH ×2 (09:31→22:12)
[2019-02-23] MEDS: METOPROLOL SUCCINATE XL 25 MG TABLET PO SCH (09:31)
[2019-02-23] MEDS ORDERED: METOPROLOL SUCCINATE XL 25 MG TABLET PO ONE (10:18)
[2019-02-23] MEDS: ENOXAPARIN 40 MG/0.4 ML SYRINGE SUBCUT SCH (11:49)
[2019-02-23] MEDS: CHOLESTYRAMINE 4 GM PACK PO SCH ×2 (13:30→22:13)
[2019-02-23] MEDS: POTASSIUM CHLORIDE 20 MEQ TABLET PO PRN (13:31)
[2019-02-23] MEDS: ZALEPLON 5 MG CAPSULE PO SCH (22:13)
[2019-02-23] MEDS: SIMVASTATIN 10 MG TABLET PO SCH (22:14)
[2019-02-24] MEDS: INSULIN LISPRO 100 UNIT/ML SUBCUT SCH ×4 (01:43→18:36)
[2019-02-24] MEDS: VANCOMYCIN 50 MG/ML 60 ML/BOTTLE PO SCH ×4 (01:44→17:45)
[2019-02-24] MEDS: LEVOTHYROXINE 112 MCG TABLET PO SCH (06:40)
[2019-02-24 07:49] LABS: Basophils % 0.3 % (0.0-0.8); Eosinophils # 0.1 10*3/uL (0.0-0.87); Eosinophils % 1.4 % (0.00-10.9); Hematocrit 25.4 VOL% (42.0-52.0); Hemoglobin 8.1 GM/DL (14.0-18.0); Immature Granulocytes % 0.4 %; Immature Granulocytes Absolute 0.03 #; Lymphocytes % 13.1 % (21.2-54.2); Mean Corpuscular HGB Conc 31.9 GM/DL (32-36); Mean Corpuscular Volume 93.7 FL (87-102); Mean Platelet Volume 10.3 FL (9.6-12.0); Monocytes % 8.1 % (1.7-12.7); Neutrophils % 76.7 % (38.7-73.9); Platelet Count 212 T/CUMM (130-400); Red Blood Count 2.71 MC/CUMM (3.8-5.5); Red Cell Distribution Width 16.2 % (9.3-17.3); White Blood Count 7.3 T/CUMM (4-12)
[2019-02-24 08:05] LABS: Calcium 7.9 MG/DL (8.5-10.1); Osmolality,Calculated 268.5 MOS/KG (273-304)
[2019-02-24] MEDS: RANOLAZINE 500 MG TABLET PO SCH ×2 (08:43→22:29)
[2019-02-24] MEDS: GLIMEPIRIDE 2 MG TABLET PO SCH (08:43)
[2019-02-24] MEDS: GEMFIBROZIL 600 MG TABLET PO SCH (08:43)
[2019-02-24] MEDS: METOPROLOL SUCCINATE XL 25 MG TABLET PO SCH (08:44)
[2019-02-24] MEDS: ASCORBIC ACID 500 MG TABLET PO SCH (08:44)
[2019-02-24] MEDS: FUROSEMIDE 40 MG TABLET PO SCH ×2 (08:45→17:45)
[2019-02-24] MEDS: MAGNESIUM OXIDE 400 MG TABLET PO SCH ×2 (08:45→22:29)
[2019-02-24] MEDS: MULTIVITAMIN (CENTRUM) TABLET PO SCH (08:45)
[2019-02-24] MEDS: LACTOBACILLUS RHAMNOSUS GG CAPSULE PO SCH ×2 (08:45→22:28)
[2019-02-24] MEDS: PANTOPRAZOLE 40 MG TABLET PO SCH ×2 (08:45→22:29)
[2019-02-24] MEDS: DILTIAZEM CD 120 MG CAPSULE PO SCH (08:45)
[2019-02-24] MEDS: TAMSULOSIN 0.4 MG CAPSULE PO SCH ×2 (08:45→22:30)
[2019-02-24] MEDS: LORATADINE 10 MG TABLET PO SCH (08:45)
[2019-02-24] MEDS: sitaGLIPtin 25 MG TABLET PO SCH ×2 (08:45→22:29)
[2019-02-24] MEDS: CHLORHEXIDINE 4% SOLN 118 ML BOTTLE TOP SCH (08:45)
[2019-02-24] MEDS: SERTRALINE 25 MG TABLET PO SCH (08:45)
[2019-02-24] MEDS: GABAPENTIN 300 MG CAPSULE PO SCH ×3 (08:45→22:29)
[2019-02-24] MEDS: SODIUM HYPOCHLORITE 0.25% IRRIG 473 ML BOTTLE TOP SCH (08:45)
[2019-02-24] MEDS: CHOLESTYRAMINE 4 GM PACK PO SCH ×2 (08:46→22:42)
[2019-02-24] MEDS: CLINDAMYCIN INJ 600 MG in PREMIX 1 EACH IV SCH ×2 (10:22→17:45)
[2019-02-24] MEDS: ENOXAPARIN 40 MG/0.4 ML SYRINGE SUBCUT SCH (12:05)
[2019-02-24 19:33] LABS: Apearance,Urine CLEAR (Clear); Bacteria,Urine Occasional /HPF (Few); Bilirubin,Urine Negative (Negative); Blood, Urine Negative (Negative); Glucose,Urine (UA) Negative (Negative); Ketones,Urine Negative (Negative); Nitrite,Urine Negative (Negative); Protein,Urine Negative; RBC,Urine <1 /HPF (0-4); Urine Color Straw (Yellow); Urine Specific Gravity 1.002 (1.001-1.035); Urine Urobilinogen < 2.0 EU/DL (0.2-1.0); WBC,Urine 1 /HPF (0-6)
[2019-02-24] MEDS: SIMVASTATIN 10 MG TABLET PO SCH (22:29)
[2019-02-25] MEDS: VANCOMYCIN 50 MG/ML 60 ML/BOTTLE PO SCH ×4 (00:30→17:36)
[2019-02-25] MEDS: INSULIN LISPRO 100 UNIT/ML SUBCUT SCH ×4 (00:30→18:59)
[2019-02-25] MEDS: CLINDAMYCIN INJ 600 MG in PREMIX 1 EACH IV SCH ×3 (02:14→17:36)
[2019-02-25] MEDS: ZALEPLON 5 MG CAPSULE PO SCH ×2 (06:23→21:00)
[2019-02-25] MEDS: LEVOTHYROXINE 112 MCG TABLET PO SCH (06:34)
[2019-02-25] MEDS: CHOLESTYRAMINE 4 GM PACK PO SCH ×2 (09:33→21:36)
[2019-02-25] MEDS: METOPROLOL SUCCINATE XL 25 MG TABLET PO SCH (09:34)
[2019-02-25] MEDS: MULTIVITAMIN (CENTRUM) TABLET PO SCH (09:34)
[2019-02-25] MEDS: RANOLAZINE 500 MG TABLET PO SCH ×2 (09:34→21:35)
[2019-02-25] MEDS: GEMFIBROZIL 600 MG TABLET PO SCH (09:35)
[2019-02-25] MEDS: GLIMEPIRIDE 2 MG TABLET PO SCH (09:35)
[2019-02-25] MEDS: sitaGLIPtin 25 MG TABLET PO SCH ×2 (09:35→21:36)
[2019-02-25] MEDS: TAMSULOSIN 0.4 MG CAPSULE PO SCH ×2 (09:36→22:08)
[2019-02-25] MEDS: ASCORBIC ACID 500 MG TABLET PO SCH (09:36)
[2019-02-25] MEDS: GABAPENTIN 300 MG CAPSULE PO SCH ×3 (09:36→21:36)
[2019-02-25] MEDS: LACTOBACILLUS RHAMNOSUS GG CAPSULE PO SCH ×2 (09:36→21:36)
[2019-02-25] MEDS: DILTIAZEM CD 120 MG CAPSULE PO SCH (09:36)
[2019-02-25] MEDS: PANTOPRAZOLE 40 MG TABLET PO SCH ×2 (09:37→21:36)
[2019-02-25] MEDS: SERTRALINE 25 MG TABLET PO SCH (09:37)
[2019-02-25] MEDS: FUROSEMIDE 40 MG TABLET PO SCH ×2 (09:37→17:36)
[2019-02-25] MEDS: MAGNESIUM OXIDE 400 MG TABLET PO SCH ×2 (09:37→21:36)
[2019-02-25] MEDS: LORATADINE 10 MG TABLET PO SCH (09:37)
[2019-02-25] MEDS: CHLORHEXIDINE 4% SOLN 118 ML BOTTLE TOP SCH (12:07)
[2019-02-25] MEDS: SODIUM HYPOCHLORITE 0.25% IRRIG 473 ML BOTTLE TOP SCH (12:07)
[2019-02-25] MEDS: COLLAGENASE OINT 30 GM TUBE TOP SCH (12:07)
[2019-02-25] MEDS: ENOXAPARIN 40 MG/0.4 ML SYRINGE SUBCUT SCH (12:39)
[2019-02-25] MEDS: SIMVASTATIN 10 MG TABLET PO SCH (21:36)
[2019-02-26] MEDS: CLINDAMYCIN INJ 600 MG in PREMIX 1 EACH IV SCH (00:30)
[2019-02-26] MEDS: VANCOMYCIN 50 MG/ML 60 ML/BOTTLE PO SCH ×6 (00:30→23:00)
[2019-02-26] MEDS: INSULIN LISPRO 100 UNIT/ML SUBCUT SCH ×4 (00:53→18:47)
[2019-02-26 05:24] LABS: Basophils % 0.4 % (0.0-0.8); Eosinophils # 0.1 10*3/uL (0.0-0.87); Eosinophils % 2.5 % (0.00-10.9); Hematocrit 23.6 VOL% (42.0-52.0); Hemoglobin 7.4 GM/DL (14.0-18.0); Immature Granulocytes % 0.6 %; Immature Granulocytes Absolute 0.03 #; Mean Corpuscular HGB Conc 31.4 GM/DL (32-36); Mean Corpuscular Volume 94.4 FL (87-102); Mean Platelet Volume 10.2 FL (9.6-12.0); Monocytes % 12.5 % (1.7-12.7); Platelet Count 306 T/CUMM (130-400); Red Cell Distribution Width 15.9 % (9.3-17.3); White Blood Count 5.2 T/CUMM (4-12)
[2019-02-26 05:47] LABS: Albumin 1.8 G/DL (3.4-5.0); Bilirubin,Total 0.5 MG/DL (0.2-1.0); Calcium 7.9 MG/DL (8.5-10.1); Total Protein 5.9 G/DL (6.4-8.3)
[2019-02-26] MEDS: LEVOTHYROXINE 112 MCG TABLET PO SCH (06:34)
[2019-02-26] MEDS ORDERED: SODIUM CHLORIDE 0.9% 1,000 ML IV PRN (07:19)
[2019-02-26] MEDS ORDERED: LINEZOLID 600 MG TABLET PO SCH (09:00)
[2019-02-26] MEDS ORDERED: TROLAMINE SALICYLATE 10% CREAM 85 GM TUBE TOP PRN (09:43)
[2019-02-26] MEDS: GLIMEPIRIDE 2 MG TABLET PO SCH (10:16)
[2019-02-26] MEDS: DILTIAZEM CD 120 MG CAPSULE PO SCH (10:17)
[2019-02-26] MEDS: MAGNESIUM OXIDE 400 MG TABLET PO SCH ×2 (10:17→22:57)
[2019-02-26] MEDS: TAMSULOSIN 0.4 MG CAPSULE PO SCH ×2 (10:17→22:46)
[2019-02-26] MEDS: ASCORBIC ACID 500 MG TABLET PO SCH (10:18)
[2019-02-26] MEDS: GABAPENTIN 300 MG CAPSULE PO SCH ×3 (10:18→22:44)
[2019-02-26] MEDS: SERTRALINE 25 MG TABLET PO SCH (10:19)
[2019-02-26] MEDS: sitaGLIPtin 25 MG TABLET PO SCH ×2 (10:19→22:45)
[2019-02-26] MEDS: GEMFIBROZIL 600 MG TABLET PO SCH (10:19)
[2019-02-26] MEDS: LACTOBACILLUS RHAMNOSUS GG CAPSULE PO SCH ×2 (10:19→22:46)
[2019-02-26] MEDS: PANTOPRAZOLE 40 MG TABLET PO SCH ×2 (10:19→22:47)
[2019-02-26] MEDS: METOPROLOL SUCCINATE XL 25 MG TABLET PO SCH (10:20)
[2019-02-26] MEDS: LORATADINE 10 MG TABLET PO SCH (10:20)
[2019-02-26] MEDS: CHOLESTYRAMINE 4 GM PACK PO SCH ×2 (10:20→23:00)
[2019-02-26] MEDS: AMPICILLIN 500 MG CAPSULE PO SCH ×4 (10:20→22:57)
[2019-02-26] MEDS: FUROSEMIDE 40 MG TABLET PO SCH ×2 (10:21→17:02)
[2019-02-26] MEDS: RANOLAZINE 500 MG TABLET PO SCH ×2 (10:22→22:45)
[2019-02-26] MEDS: MULTIVITAMIN (CENTRUM) TABLET PO SCH (10:22)
[2019-02-26] MEDS: COLLAGENASE OINT 30 GM TUBE TOP SCH (10:23)
[2019-02-26] MEDS: SODIUM HYPOCHLORITE 0.25% IRRIG 473 ML BOTTLE TOP SCH (10:23)
[2019-02-26] MEDS: CHLORHEXIDINE 4% SOLN 118 ML BOTTLE TOP SCH (11:31)
[2019-02-26] MEDS: SIMVASTATIN 10 MG TABLET PO SCH (22:47)
[2019-02-27] MEDS: ZALEPLON 5 MG CAPSULE PO SCH ×2 (01:35→21:19)
[2019-02-27] MEDS: INSULIN LISPRO 100 UNIT/ML SUBCUT SCH ×5 (01:43→23:59)
[2019-02-27 04:53] LABS: Basophils % 0.6 % (0.0-0.8); Eosinophils # 0.1 10*3/uL (0.0-0.87); Eosinophils % 1.8 % (0.00-10.9); Hemoglobin 10.9 GM/DL (14.0-18.0); Immature Granulocytes Absolute 0.05 #; Lymphocytes # 0.9 10*3/uL (1.4-4.0); Lymphocytes % 17.7 % (21.2-54.2); Mean Corpuscular HGB Conc 31.1 GM/DL (32-36); Mean Corpuscular Volume 92.6 FL (87-102); Mean Platelet Volume 9.9 FL (9.6-12.0); Monocytes % 12.3 % (1.7-12.7); Neutrophils % 66.6 % (38.7-73.9); Platelet Count 293 T/CUMM (130-400); Red Blood Count 3.78 MC/CUMM (3.8-5.5); Red Cell Distribution Width 16.6 % (9.3-17.3)
[2019-02-27 05:00] LABS: INR 1.1; PT Patient Result 11.9 SECS
[2019-02-27 05:15] LABS: Albumin 1.7 G/DL (3.4-5.0); Bilirubin,Total 1.1 MG/DL (0.2-1.0); Calcium 8.4 MG/DL (8.5-10.1); Osmolality,Calculated 269.1 MOS/KG (273-304)
[2019-02-27] MEDS: VANCOMYCIN 50 MG/ML 60 ML/BOTTLE PO SCH ×4 (06:11→23:58)
[2019-02-27] MEDS: LEVOTHYROXINE 112 MCG TABLET PO SCH (06:11)
[2019-02-27] MEDS: CHOLESTYRAMINE 4 GM PACK PO SCH ×2 (09:06→21:19)
[2019-02-27] MEDS: TAMSULOSIN 0.4 MG CAPSULE PO SCH ×2 (09:07→21:19)
[2019-02-27] MEDS: GLIMEPIRIDE 2 MG TABLET PO SCH (09:07)
[2019-02-27] MEDS: LACTOBACILLUS RHAMNOSUS GG CAPSULE PO SCH ×2 (09:09→21:18)
[2019-02-27] MEDS: sitaGLIPtin 25 MG TABLET PO SCH ×2 (09:09→21:19)
[2019-02-27] MEDS: PANTOPRAZOLE 40 MG TABLET PO SCH ×2 (09:10→21:18)
[2019-02-27] MEDS: RANOLAZINE 500 MG TABLET PO SCH ×2 (09:10→21:19)
[2019-02-27] MEDS: GABAPENTIN 300 MG CAPSULE PO SCH ×3 (09:10→21:19)
[2019-02-27] MEDS: DILTIAZEM CD 120 MG CAPSULE PO SCH (09:10)
[2019-02-27] MEDS: METOPROLOL SUCCINATE XL 25 MG TABLET PO SCH (09:12)
[2019-02-27] MEDS: MULTIVITAMIN (CENTRUM) TABLET PO SCH (09:12)
[2019-02-27] MEDS: FUROSEMIDE 40 MG TABLET PO SCH ×2 (09:12→17:37)
[2019-02-27] MEDS: ASCORBIC ACID 500 MG TABLET PO SCH (09:12)
[2019-02-27] MEDS: LORATADINE 10 MG TABLET PO SCH (09:12)
[2019-02-27] MEDS: GEMFIBROZIL 600 MG TABLET PO SCH (09:13)
[2019-02-27] MEDS: MAGNESIUM OXIDE 400 MG TABLET PO SCH ×2 (09:13→21:19)
[2019-02-27] MEDS: SERTRALINE 25 MG TABLET PO SCH (09:14)
[2019-02-27] MEDS: AMPICILLIN 500 MG CAPSULE PO SCH ×4 (09:27→23:58)
[2019-02-27] MEDS: COLLAGENASE OINT 30 GM TUBE TOP SCH (10:56)
[2019-02-27] MEDS: CHLORHEXIDINE 4% SOLN 118 ML BOTTLE TOP SCH (10:56)
[2019-02-27] MEDS: SODIUM HYPOCHLORITE 0.25% IRRIG 473 ML BOTTLE TOP SCH (10:56)
[2019-02-27] MEDS: SIMVASTATIN 10 MG TABLET PO SCH (21:19)
[2019-02-28] MEDS: INSULIN LISPRO 100 UNIT/ML SUBCUT SCH ×2 (05:13→12:27)
[2019-02-28] MEDS: VANCOMYCIN 50 MG/ML 60 ML/BOTTLE PO SCH ×2 (05:14→12:35)
[2019-02-28] MEDS: LEVOTHYROXINE 112 MCG TABLET PO SCH (05:14)
[2019-02-28] MEDS: AMPICILLIN 500 MG CAPSULE PO SCH ×2 (08:23→12:41)
[2019-02-28] MEDS: MAGNESIUM OXIDE 400 MG TABLET PO SCH (08:23)
[2019-02-28] MEDS: PANTOPRAZOLE 40 MG TABLET PO SCH (08:23)
[2019-02-28] MEDS: DILTIAZEM CD 120 MG CAPSULE PO SCH (08:23)
[2019-02-28] MEDS: TAMSULOSIN 0.4 MG CAPSULE PO SCH (08:23)
[2019-02-28] MEDS: GLIMEPIRIDE 2 MG TABLET PO SCH (08:39)
[2019-02-28] MEDS: LACTOBACILLUS RHAMNOSUS GG CAPSULE PO SCH (08:41)
[2019-02-28] MEDS: RANOLAZINE 500 MG TABLET PO SCH (08:41)
[2019-02-28] MEDS: sitaGLIPtin 25 MG TABLET PO SCH (08:41)
[2019-02-28] MEDS: SERTRALINE 25 MG TABLET PO SCH (08:41)
[2019-02-28] MEDS: METOPROLOL SUCCINATE XL 25 MG TABLET PO SCH (08:41)
[2019-02-28] MEDS: ASCORBIC ACID 500 MG TABLET PO SCH (08:41)
[2019-02-28] MEDS: GEMFIBROZIL 600 MG TABLET PO SCH (08:42)
[2019-02-28] MEDS: FUROSEMIDE 40 MG TABLET PO SCH (08:42)
[2019-02-28] MEDS: LORATADINE 10 MG TABLET PO SCH (08:42)
[2019-02-28] MEDS: GABAPENTIN 300 MG CAPSULE PO SCH ×2 (08:42→15:09)
[2019-02-28] MEDS: MULTIVITAMIN (CENTRUM) TABLET PO SCH (08:42)
[2019-02-28] MEDS: COLLAGENASE OINT 30 GM TUBE TOP SCH (08:43)
[2019-02-28] MEDS: CHLORHEXIDINE 4% SOLN 118 ML BOTTLE TOP SCH (08:43)
[2019-02-28] MEDS: SODIUM HYPOCHLORITE 0.25% IRRIG 473 ML BOTTLE TOP SCH (08:43)
[2019-02-28] MEDS: CHOLESTYRAMINE 4 GM PACK PO SCH (08:44)
[2019-02-28] MEDS ORDERED: traMADol 50 MG TABLET PO PRN (08:49)
[2019-02-28 12:02] VITALS: BP 102/61
== END 2019-02-28 15:30 | disposition swing bed (61) | DRG 326 ==
LOC: EDUNIT# → EDBD → N.ED 15:11 → N.EDINP 17:38 → N.5E 18:16 → N.CC 02-14 18:38 → N.TELEN 02-21 14:12
PROVIDERS: ADMIT Family Medicine; ATTEND Family Medicine
PROC: IRAGMES (2019-02-15 14:05)

== ENCOUNTER 2019-03-31 16:12 | Inpatient (IN) ==
[2019-03-31] MEDS ORDERED: ONDANSETRON 4 MG/2 ML VIAL IV STA (17:06)
[2019-03-31] MEDS ORDERED: SODIUM CHLORIDE 0.9% 500 ML IV STA (17:06)
[2019-03-31] MEDS ORDERED: PANTOPRAZOLE 40 MG VIAL IV STA (17:06)
[2019-03-31 17:38] LABS: Basophils % 0.4 % (0.0-0.8); Eosinophils # 0.1 10*3/uL (0.0-0.87); Eosinophils % 1.5 % (0.00-10.9); Hematocrit 30.3 VOL% (42.0-52.0); Hemoglobin 9.7 GM/DL (14.0-18.0); Immature Granulocytes % 0.9 %; Immature Granulocytes Absolute 0.07 #; Lymphocytes # 1.1 10*3/uL (1.4-4.0); Mean Corpuscular Volume 90.4 FL (87-102); Mean Platelet Volume 9.2 FL (9.6-12.0); Monocytes % 7.9 % (1.7-12.7); Neutrophils % 75.3 % (38.7-73.9); Platelet Count 321 T/CUMM (130-400); Red Blood Count 3.35 MC/CUMM (3.8-5.5); Red Cell Distribution Width 15.7 % (9.3-17.3)
[2019-03-31 18:01] LABS: Alanine Aminotransferase < 9 U/L (16-61); Albumin 2.5 G/DL (3.4-5.0); Alkaline Phosphatase 112 U/L (45-117); Amylase 16 U/L (25-115); Aspartate Amino Transferase 12 U/L (0-37); Blood Urea Nitrogen 21 MG/DL (7-18); Calcium 8.6 MG/DL (8.5-10.1); Glucose 123 MG/DL (74-106); Osmolality,Calculated 269.4 MOS/KG (273-304); Total Protein 7.7 G/DL (6.4-8.3); Troponin I < 0.015 NG/ML (0.00-0.045)
[2019-03-31 18:01] LABS: INR 2.1
[2019-03-31 18:02] LABS: PT Patient Result 22.5 SECS
[2019-03-31 18:16] LABS: Band Neutrophils 3 % (0-10); Eosinophils 4 % (0-10); Lymphocytes 20 % (20-55); Segmented Neutrophils 68 % (50-85); Total Cells Counted 100
[2019-03-31 18:17] LABS: Anisocytosis 1+; Atypical Lymphocytes 1+; Macrocytosis 1+; Polychromasia Slight; Rouleau 1+
[2019-03-31 18:18] LABS: Platelet Estimate Normal
[2019-03-31] MEDS ORDERED: MAGNESIUM SULF RIDER 1 GM in PREMIX 1 EACH IV STA (18:55)
[2019-03-31 18:56] LABS: Apearance,Urine Slightly Hazy (Clear); Bacteria,Urine Moderate /HPF (Few); Bilirubin,Urine Negative (Negative); Blood, Urine Negative (Negative); Glucose,Urine (UA) Negative (Negative); Hyaline Casts,Urine 7 /LPF (0-3); Ketones,Urine Negative (Negative); Mucus,Urine Occasional /LPF (Occasional); Nitrite,Urine Positive (Negative); Protein,Urine Negative; RBC,Urine 4 /HPF (0-4); Squamous Epithelial Cell,Urine Occasional /HPF (0-10); Urine Color Yellow (Yellow); Urine Specific Gravity 1.013 (1.001-1.035); Urine Urobilinogen < 2.0 EU/DL (0.2-1.0); WBC,Urine 76 /HPF (0-6)
[2019-03-31] MEDS ORDERED: ONDANSETRON 4 MG/2 ML VIAL IV PRN (19:29)
[2019-03-31] MEDS ORDERED: MAGNESIUM SULF RIDER 50 ML IV ONE (19:29)
[2019-03-31] MEDS ORDERED: ACETAMINOPHEN 325 MG TABLET PO PRN (19:29)
[2019-03-31] MEDS: DOCUSATE SODIUM 100 MG CAPSULE PO SCH (22:02)
[2019-03-31] MEDS: SODIUM CHLOR 0.9% KCL 40 MEQ 40 MEQ/1,000 ML BAG IV SCH (22:12)
[2019-03-31] MEDS: FAMOTIDINE 20 MG/2 ML VIAL IV SCH (22:12)
[2019-04-01] MEDS: VANCOMYCIN 50 MG/ML 60 ML/BOTTLE PO SCH ×4 (00:49→18:07)
[2019-04-01] MEDS: GABAPENTIN 300 MG CAPSULE PO SCH ×4 (03:30→21:01)
[2019-04-01] MEDS: RANOLAZINE 500 MG TABLET PO SCH ×3 (03:30→21:01)
[2019-04-01] MEDS: WARFARIN 5 MG TABLET PO SCH ×2 (03:31→18:06)
[2019-04-01 05:42] LABS: Basophils % 0.7 % (0.0-0.8); Eosinophils # 0.2 10*3/uL (0.0-0.87); Hematocrit 31.4 VOL% (42.0-52.0); Hemoglobin 10.1 GM/DL (14.0-18.0); Immature Granulocytes % 0.6 %; Immature Granulocytes Absolute 0.03 #; Lymphocytes # 0.7 10*3/uL (1.4-4.0); Lymphocytes % 13.3 % (21.2-54.2); Mean Corpuscular HGB Conc 32.2 GM/DL (32-36); Mean Corpuscular Volume 90.5 FL (87-102); Mean Platelet Volume 9.4 FL (9.6-12.0); Neutrophils % 74.4 % (38.7-73.9); Platelet Count 241 T/CUMM (130-400); Red Blood Count 3.47 MC/CUMM (3.8-5.5); Red Cell Distribution Width 15.7 % (9.3-17.3); White Blood Count 5.4 T/CUMM (4-12)
[2019-04-01] MEDS: SODIUM CHLOR 0.9% KCL 40 MEQ 40 MEQ/1,000 ML BAG IV SCH ×4 (05:48→22:30)
[2019-04-01 06:17] LABS: Alanine Aminotransferase < 9 U/L (16-61); Albumin 1.9 G/DL (3.4-5.0); Alkaline Phosphatase 91 U/L (45-117); Aspartate Amino Transferase 8 U/L (0-37); Blood Urea Nitrogen 19 MG/DL (7-18); Glucose 178 MG/DL (74-106); Osmolality,Calculated 275.1 MOS/KG (273-304); Total Protein 6.3 G/DL (6.4-8.3)
[2019-04-01 06:40] LABS: Band Neutrophils 1 % (0-10); Eosinophils 1 % (0-10); Hypochromasia 1+; Lymphocytes 10 % (20-55); Microcytosis 1+; Platelet Estimate Normal; Segmented Neutrophils 80 % (50-85); Total Cells Counted 100
[2019-04-01] MEDS ORDERED: PANTOPRAZOLE 40 MG TABLET PO SCH (09:00)
[2019-04-01] MEDS ORDERED: NITROGLYCERIN SL 0.4 MG TABLET SL PRN (09:27)
[2019-04-01] MEDS: DOCUSATE SODIUM 100 MG CAPSULE PO SCH ×3 (10:21→21:00)
[2019-04-01] MEDS: FAMOTIDINE 20 MG/2 ML VIAL IV SCH ×2 (10:27→21:02)
[2019-04-01] MEDS ORDERED: MAGNESIUM SULF RIDER 2 GM in PREMIX 1 EACH IV STA (10:28)
[2019-04-01] MEDS: MAGNESIUM OXIDE 400 MG TABLET PO SCH ×2 (14:30→21:01)
[2019-04-01] MEDS: SERTRALINE 25 MG TABLET PO SCH (18:06)
[2019-04-01] MEDS: TAMSULOSIN 0.4 MG CAPSULE PO SCH (18:06)
[2019-04-01] MEDS: GEMFIBROZIL 600 MG TABLET PO SCH (21:00)
[2019-04-01] MEDS: sitaGLIPtin 25 MG TABLET PO SCH (21:00)
[2019-04-01] MEDS: FAMOTIDINE 20 MG TABLET PO SCH (21:01)
[2019-04-01] MEDS: SIMVASTATIN 20 MG TABLET PO SCH (21:01)
[2019-04-01] MEDS: FUROSEMIDE 40 MG TABLET PO SCH (21:02)
[2019-04-02] MEDS: VANCOMYCIN 50 MG/ML 60 ML/BOTTLE PO SCH ×4 (00:40→18:02)
[2019-04-02] MEDS: SODIUM CHLOR 0.9% KCL 40 MEQ 40 MEQ/1,000 ML BAG IV SCH ×2 (07:20→15:43)
[2019-04-02] MEDS ORDERED: DILTIAZEM CD 120 MG CAPSULE PO SCH (09:00)
[2019-04-02] MEDS: GLIMEPIRIDE 2 MG TABLET PO SCH (09:57)
[2019-04-02] MEDS: METOPROLOL SUCCINATE XL 25 MG TABLET PO SCH (09:58)
[2019-04-02] MEDS: GEMFIBROZIL 600 MG TABLET PO SCH ×2 (09:59→20:19)
[2019-04-02] MEDS: MAGNESIUM OXIDE 400 MG TABLET PO SCH ×3 (09:59→20:19)
[2019-04-02] MEDS: GABAPENTIN 300 MG CAPSULE PO SCH ×3 (10:00→20:19)
[2019-04-02] MEDS: ASCORBIC ACID 500 MG TABLET PO SCH (10:00)
[2019-04-02] MEDS: POTASSIUM GLUCONATE 500 MG TABLET PO SCH (10:00)
[2019-04-02] MEDS: SPIRONOLACTONE 25 MG TABLET PO SCH (10:01)
[2019-04-02] MEDS: LOSARTAN 25 MG TABLET PO SCH (10:01)
[2019-04-02] MEDS: PANTOPRAZOLE 40 MG TABLET PO SCH (10:02)
[2019-04-02] MEDS: RANOLAZINE 500 MG TABLET PO SCH ×2 (10:02→20:19)
[2019-04-02] MEDS: LORATADINE 10 MG TABLET PO SCH (10:02)
[2019-04-02] MEDS: LEVOTHYROXINE 112 MCG TABLET PO SCH (10:02)
[2019-04-02] MEDS: FUROSEMIDE 40 MG TABLET PO SCH ×2 (10:03→15:44)
[2019-04-02] MEDS: ISOSORBIDE MONONITRATE 60 MG TABLET PO SCH (10:03)
[2019-04-02] MEDS: sitaGLIPtin 25 MG TABLET PO SCH ×2 (10:03→20:20)
[2019-04-02] MEDS: FAMOTIDINE 20 MG/2 ML VIAL IV SCH ×2 (10:04→20:32)
[2019-04-02] MEDS: DOCUSATE SODIUM 100 MG CAPSULE PO SCH ×3 (10:04→20:32)
[2019-04-02 11:16] LABS: Calcium 7.6 MG/DL (8.5-10.1)
[2019-04-02] MEDS: WARFARIN 5 MG TABLET PO SCH ×2 (18:00→18:01)
[2019-04-02] MEDS: SERTRALINE 25 MG TABLET PO SCH (18:01)
[2019-04-02] MEDS: TAMSULOSIN 0.4 MG CAPSULE PO SCH (18:01)
[2019-04-02] MEDS: METHENAMINE HIPPURATE 1 GM TABLET PO SCH (20:18)
[2019-04-02] MEDS: DILTIAZEM CD 240 MG CAPSULE PO SCH (20:19)
[2019-04-02] MEDS: FAMOTIDINE 20 MG TABLET PO SCH (20:20)
[2019-04-02] MEDS: SIMVASTATIN 20 MG TABLET PO SCH (20:20)
[2019-04-03 05:25] LABS: Osmolality,Calculated 275.8 MOS/KG (273-304)
[2019-04-03] MEDS: VANCOMYCIN 50 MG/ML 60 ML/BOTTLE PO SCH ×5 (05:26→23:49)
[2019-04-03] MEDS ORDERED: MAGNESIUM SULF RIDER 2 GM in PREMIX 1 EACH IV ONE (07:51)
[2019-04-03] MEDS: GEMFIBROZIL 600 MG TABLET PO SCH ×2 (08:21→20:37)
[2019-04-03] MEDS: LOSARTAN 25 MG TABLET PO SCH (08:22)
[2019-04-03] MEDS: METOPROLOL SUCCINATE XL 25 MG TABLET PO SCH (08:22)
[2019-04-03] MEDS: GLIMEPIRIDE 2 MG TABLET PO SCH (08:23)
[2019-04-03] MEDS: POTASSIUM GLUCONATE 500 MG TABLET PO SCH (08:23)
[2019-04-03] MEDS: MAGNESIUM OXIDE 400 MG TABLET PO SCH ×3 (08:23→20:37)
[2019-04-03] MEDS: ASCORBIC ACID 500 MG TABLET PO SCH (08:24)
[2019-04-03] MEDS: sitaGLIPtin 25 MG TABLET PO SCH ×2 (08:25→20:38)
[2019-04-03] MEDS: LEVOTHYROXINE 112 MCG TABLET PO SCH (08:25)
[2019-04-03] MEDS: RANOLAZINE 500 MG TABLET PO SCH ×2 (08:25→20:38)
[2019-04-03] MEDS: GABAPENTIN 300 MG CAPSULE PO SCH ×3 (08:25→20:37)
[2019-04-03] MEDS: FUROSEMIDE 40 MG TABLET PO SCH ×2 (08:26→15:56)
[2019-04-03] MEDS: SPIRONOLACTONE 25 MG TABLET PO SCH (08:26)
[2019-04-03] MEDS: PANTOPRAZOLE 40 MG TABLET PO SCH (08:26)
[2019-04-03] MEDS: LORATADINE 10 MG TABLET PO SCH (08:27)
[2019-04-03] MEDS: FAMOTIDINE 20 MG/2 ML VIAL IV SCH (08:27)
[2019-04-03] MEDS: ISOSORBIDE MONONITRATE 60 MG TABLET PO SCH (08:27)
[2019-04-03] MEDS: DOCUSATE SODIUM 100 MG CAPSULE PO SCH ×2 (08:27→20:39)
[2019-04-03 08:31] LABS: PT Patient Result 42.6 SECS
[2019-04-03] MEDS: METHENAMINE HIPPURATE 1 GM TABLET PO SCH ×2 (08:34→20:39)
[2019-04-03] MEDS: SODIUM CHLOR 0.9% KCL 40 MEQ 40 MEQ/1,000 ML BAG IV SCH ×2 (09:21)
[2019-04-03] MEDS: COLLAGENASE OINT 30 GM TUBE TOP SCH (13:08)
[2019-04-03] MEDS: cefTRIAXone 1,000 MG in SYRINGE 1 EACH IV SCH (14:08)
[2019-04-03] MEDS: WARFARIN 5 MG TABLET PO SCH ×2 (18:13→18:14)
[2019-04-03] MEDS: SERTRALINE 25 MG TABLET PO SCH (18:13)
[2019-04-03] MEDS: TAMSULOSIN 0.4 MG CAPSULE PO SCH (18:14)
[2019-04-03] MEDS: SIMVASTATIN 20 MG TABLET PO SCH (20:38)
[2019-04-03] MEDS: DILTIAZEM CD 240 MG CAPSULE PO SCH (20:38)
[2019-04-03] MEDS: FAMOTIDINE 20 MG TABLET PO SCH (20:38)
[2019-04-04] MEDS: VANCOMYCIN 50 MG/ML 60 ML/BOTTLE PO SCH ×2 (06:12→13:08)
[2019-04-04] MEDS: FUROSEMIDE 40 MG TABLET PO SCH ×2 (09:52→15:10)
[2019-04-04] MEDS: SPIRONOLACTONE 25 MG TABLET PO SCH (09:53)
[2019-04-04] MEDS: LORATADINE 10 MG TABLET PO SCH (09:54)
[2019-04-04] MEDS: GLIMEPIRIDE 2 MG TABLET PO SCH (09:54)
[2019-04-04] MEDS: GEMFIBROZIL 600 MG TABLET PO SCH (09:55)
[2019-04-04] MEDS: ISOSORBIDE MONONITRATE 60 MG TABLET PO SCH (09:55)
[2019-04-04] MEDS: LOSARTAN 25 MG TABLET PO SCH (09:55)
[2019-04-04] MEDS: sitaGLIPtin 25 MG TABLET PO SCH (09:55)
[2019-04-04] MEDS: GABAPENTIN 300 MG CAPSULE PO SCH ×2 (09:56→15:10)
[2019-04-04] MEDS: MAGNESIUM OXIDE 400 MG TABLET PO SCH ×2 (09:56→15:10)
[2019-04-04] MEDS: PANTOPRAZOLE 40 MG TABLET PO SCH (09:56)
[2019-04-04] MEDS: POTASSIUM GLUCONATE 500 MG TABLET PO SCH (09:56)
[2019-04-04] MEDS: COLLAGENASE OINT 30 GM TUBE TOP SCH (09:57)
[2019-04-04] MEDS: LEVOTHYROXINE 112 MCG TABLET PO SCH (09:57)
[2019-04-04] MEDS: ASCORBIC ACID 500 MG TABLET PO SCH (09:57)
[2019-04-04] MEDS: RANOLAZINE 500 MG TABLET PO SCH (09:57)
[2019-04-04] MEDS: METOPROLOL SUCCINATE XL 25 MG TABLET PO SCH (09:57)
[2019-04-04] MEDS: DOCUSATE SODIUM 100 MG CAPSULE PO SCH (10:01)
[2019-04-04 12:07] VITALS: BP 126/76
[2019-04-04] MEDS: cefTRIAXone 1,000 MG in SYRINGE 1 EACH IV SCH (13:09)
== END 2019-04-04 16:52 | disposition home health service (06) | DRG 372 ==
LOC: EDUNIT# → EDBD → N.ED 16:12 → N.EDINP 19:26 → N.TELEN 19:42
PROVIDERS: ADMIT Family Medicine; ATTEND Family Medicine

== ENCOUNTER 2019-06-02 08:26 | Inpatient (IN) ==
[2019-06-02] MEDS ORDERED: PANTOPRAZOLE INJ 80 MG in SODIUM CHLORIDE 0.9% 100 ML IV STA (08:55)
[2019-06-02] MEDS ORDERED: ONDANSETRON 4 MG/2 ML VIAL IV STA (08:55)
[2019-06-02] MEDS ORDERED: SODIUM CHLORIDE 0.9% 1,000 ML IV STA (08:55)
[2019-06-02] MEDS ORDERED: PANTOPRAZOLE 40 MG VIAL IV ONE (09:09)
[2019-06-02 09:14] LABS: Basophils % 0.9 % (0.0-0.8); Eosinophils # 0.1 10*3/uL (0.0-0.87); Hematocrit 29.2 VOL% (42.0-52.0); Hemoglobin 9.7 GM/DL (14.0-18.0); Immature Granulocytes % 0.5 %; Immature Granulocytes Absolute 0.02 #; Lymphocytes # 0.9 10*3/uL (1.4-4.0); Lymphocytes % 19.9 % (21.2-54.2); Mean Corpuscular HGB Conc 33.2 GM/DL (32-36); Mean Corpuscular Volume 92.7 FL (87-102); Mean Platelet Volume 9.1 FL (9.6-12.0); Neutrophils % 66.7 % (38.7-73.9); Platelet Count 232 T/CUMM (130-400); Red Blood Count 3.15 MC/CUMM (3.8-5.5); Red Cell Distribution Width 16.7 % (9.3-17.3); White Blood Count 4.4 T/CUMM (4-12)
[2019-06-02 09:29] LABS: INR 2.6
[2019-06-02 09:32] LABS: Alanine Aminotransferase < 9 U/L (16-61); Albumin 2.6 G/DL (3.4-5.0); Alkaline Phosphatase 107 U/L (45-117); Aspartate Amino Transferase 10 U/L (0-37); Bilirubin,Total < 0.39 MG/DL (0.2-1.0); Blood Urea Nitrogen 22 MG/DL (7-18); Calcium 8.9 MG/DL (8.5-10.1); Glucose 252 MG/DL (74-106); Osmolality,Calculated 292.3 MOS/KG (273-304); Total Protein 7.4 G/DL (6.4-8.3)
[2019-06-02 09:35] LABS: PT Patient Result 28.5 SECS; Partial Thromboplastin Time 46.5 SECS (0-40)
[2019-06-02] MEDS ORDERED: PHYTONADIONE 10 MG/1 ML AMP SUBCUT STA (10:38)
[2019-06-02] MEDS ORDERED: ONDANSETRON 4 MG/2 ML VIAL IV PRN (10:50)
[2019-06-02] MEDS ORDERED: ACETAMINOPHEN 325 MG TABLET PO PRN (10:56)
[2019-06-02] MEDS ORDERED: NITROGLYCERIN SL 0.4 MG TABLET SL PRN (10:56)
[2019-06-02] MEDS ORDERED: SODIUM CHLORIDE 0.9% 1,000 ML IV PRN (10:59)
[2019-06-02 12:26] LABS: Hematocrit 28.2 VOL% (42.0-52.0)
[2019-06-02] MEDS: SODIUM CHLORIDE 0.9% 1,000 ML IV SCH (13:51)
[2019-06-02] MEDS: PANTOPRAZOLE INJ 200 MG in SODIUM CHLORIDE 0.9% 250 ML IV SCH (15:43)
[2019-06-02] MEDS: GABAPENTIN 300 MG CAPSULE PO SCH ×2 (16:18→20:29)
[2019-06-02] MEDS: MAGNESIUM OXIDE 400 MG TABLET PO SCH ×2 (16:18→20:28)
[2019-06-02 20:28] LABS: Hematocrit 28.2 VOL% (42.0-52.0); Hemoglobin 9.1 GM/DL (14.0-18.0)
[2019-06-02] MEDS: SIMVASTATIN 10 MG TABLET PO SCH (20:29)
[2019-06-02] MEDS: sitaGLIPtin 100 MG TABLET PO SCH (20:29)
[2019-06-02] MEDS: SERTRALINE 25 MG TABLET PO SCH (20:29)
[2019-06-02] MEDS: DONEPEZIL 5 MG TABLET PO SCH (20:29)
[2019-06-02] MEDS: TAMSULOSIN 0.4 MG CAPSULE PO SCH (20:29)
[2019-06-02] MEDS: RANOLAZINE 500 MG TABLET PO SCH (20:29)
[2019-06-02] MEDS: DILTIAZEM CD 180 MG CAPSULE PO SCH (20:34)
[2019-06-02] MEDS ORDERED: DILTIAZEM CD 240 MG CAPSULE PO SCH (21:00)
[2019-06-03 02:03] LABS: Hematocrit 26.9 VOL% (42.0-52.0); Hemoglobin 8.6 GM/DL (14.0-18.0)
[2019-06-03] MEDS: SODIUM CHLORIDE 0.9% 1,000 ML IV SCH (03:58)
[2019-06-03 06:25] LABS: Basophils % 0.6 % (0.0-0.8); Eosinophils # 0.1 10*3/uL (0.0-0.87); Eosinophils % 2.4 % (0.00-10.9); Hematocrit 26.6 VOL% (42.0-52.0); Hemoglobin 8.4 GM/DL (14.0-18.0); Immature Granulocytes % 0.3 %; Immature Granulocytes Absolute 0.01 #; Lymphocytes % 30.8 % (21.2-54.2); Mean Corpuscular HGB Conc 31.6 GM/DL (32-36); Mean Corpuscular Volume 93.3 FL (87-102); Mean Platelet Volume 9.2 FL (9.6-12.0); Monocytes % 7.6 % (1.7-12.7); Neutrophils % 58.3 % (38.7-73.9); Platelet Count 209 T/CUMM (130-400); Red Blood Count 2.85 MC/CUMM (3.8-5.5); Red Cell Distribution Width 16.6 % (9.3-17.3); White Blood Count 3.3 T/CUMM (4-12)
[2019-06-03 06:57] LABS: PT Patient Result 21.3 SECS
[2019-06-03 07:00] LABS: Calcium 8.2 MG/DL (8.5-10.1); Osmolality,Calculated 282.3 MOS/KG (273-304)
[2019-06-03] MEDS: ISOSORBIDE MONONITRATE 60 MG TABLET PO SCH (09:43)
[2019-06-03] MEDS: GEMFIBROZIL 600 MG TABLET PO SCH (09:44)
[2019-06-03] MEDS: METOPROLOL SUCCINATE XL 25 MG TABLET PO SCH (09:44)
[2019-06-03] MEDS: ASCORBIC ACID 500 MG TABLET PO SCH (09:44)
[2019-06-03] MEDS: GABAPENTIN 300 MG CAPSULE PO SCH ×3 (09:44→20:13)
[2019-06-03] MEDS: LEVOTHYROXINE 112 MCG TABLET PO SCH (09:44)
[2019-06-03] MEDS: RANOLAZINE 500 MG TABLET PO SCH ×2 (09:44→20:12)
[2019-06-03] MEDS: MAGNESIUM OXIDE 400 MG TABLET PO SCH ×3 (09:44→20:12)
[2019-06-03] MEDS: SPIRONOLACTONE 25 MG TABLET PO SCH (09:45)
[2019-06-03] MEDS: sitaGLIPtin 100 MG TABLET PO SCH ×2 (09:45→20:13)
[2019-06-03] MEDS ORDERED: PHYTONADIONE 10 MG/1 ML AMP SUBCUT ONE (13:28)
[2019-06-03] MEDS: PANTOPRAZOLE INJ 200 MG in SODIUM CHLORIDE 0.9% 250 ML IV SCH (14:26)
[2019-06-03] MEDS: SIMVASTATIN 10 MG TABLET PO SCH (20:13)
[2019-06-03] MEDS: TAMSULOSIN 0.4 MG CAPSULE PO SCH (20:13)
[2019-06-03] MEDS: DILTIAZEM CD 180 MG CAPSULE PO SCH (20:13)
[2019-06-03 20:16] LABS: Hematocrit 26.6 VOL% (42.0-52.0); Hemoglobin 8.7 GM/DL (14.0-18.0)
[2019-06-03] MEDS: SERTRALINE 25 MG TABLET PO SCH (20:17)
[2019-06-03] MEDS: DONEPEZIL 5 MG TABLET PO SCH (20:17)
[2019-06-04 06:38] LABS: Hematocrit 26.6 VOL% (42.0-52.0); Hemoglobin 8.7 GM/DL (14.0-18.0)
[2019-06-04] MEDS: LEVOTHYROXINE 112 MCG TABLET PO SCH (06:47)
[2019-06-04 06:50] LABS: INR 1.3; PT Patient Result 14.5 SECS
[2019-06-04] MEDS: POTASSIUM GLUCONATE 500 MG TABLET PO SCH (08:42)
[2019-06-04] MEDS: SPIRONOLACTONE 25 MG TABLET PO SCH (08:43)
[2019-06-04] MEDS: MAGNESIUM OXIDE 400 MG TABLET PO SCH ×3 (08:44→20:35)
[2019-06-04] MEDS: ISOSORBIDE MONONITRATE 60 MG TABLET PO SCH (08:44)
[2019-06-04] MEDS: sitaGLIPtin 100 MG TABLET PO SCH ×2 (08:44→20:36)
[2019-06-04] MEDS: GEMFIBROZIL 600 MG TABLET PO SCH (08:45)
[2019-06-04] MEDS: METOPROLOL SUCCINATE XL 25 MG TABLET PO SCH (08:45)
[2019-06-04] MEDS: GABAPENTIN 300 MG CAPSULE PO SCH ×3 (08:45→20:36)
[2019-06-04] MEDS: RANOLAZINE 500 MG TABLET PO SCH ×2 (08:45→20:36)
[2019-06-04] MEDS: ASCORBIC ACID 500 MG TABLET PO SCH ×2 (12:12→14:18)
[2019-06-04] MEDS: SODIUM CHLORIDE 0.9% 1,000 ML IV SCH (14:18)
[2019-06-04] MEDS: PANTOPRAZOLE INJ 200 MG in SODIUM CHLORIDE 0.9% 250 ML IV SCH (18:06)
[2019-06-04] MEDS: TAMSULOSIN 0.4 MG CAPSULE PO SCH (20:35)
[2019-06-04] MEDS: SIMVASTATIN 10 MG TABLET PO SCH (20:36)
[2019-06-04] MEDS: SERTRALINE 25 MG TABLET PO SCH (20:36)
[2019-06-04] MEDS: DILTIAZEM CD 180 MG CAPSULE PO SCH (20:36)
[2019-06-04] MEDS: DONEPEZIL 5 MG TABLET PO SCH (20:36)
[2019-06-05 06:56] LABS: Eosinophils # 0.1 10*3/uL (0.0-0.87); Eosinophils % 2.8 % (0.00-10.9); Hematocrit 27.5 VOL% (42.0-52.0); Hemoglobin 8.8 GM/DL (14.0-18.0); Immature Granulocytes % 0.5 %; Immature Granulocytes Absolute 0.02 #; Lymphocytes # 0.9 10*3/uL (1.4-4.0); Lymphocytes % 22.6 % (21.2-54.2); Mean Corpuscular Volume 94.2 FL (87-102); Mean Platelet Volume 9.5 FL (9.6-12.0); Monocytes % 10.1 % (1.7-12.7); Platelet Count 217 T/CUMM (130-400); Red Blood Count 2.92 MC/CUMM (3.8-5.5); Red Cell Distribution Width 17.2 % (9.3-17.3)
[2019-06-05 07:02] LABS: INR 1.1; PT Patient Result 11.8 SECS
[2019-06-05 07:25] LABS: Calcium 8.7 MG/DL (8.5-10.1); Osmolality,Calculated 293.7 MOS/KG (273-304)
[2019-06-05] MEDS ORDERED: LACTATED RINGERS 1,000 ML IV SCH (09:30)
[2019-06-05] MEDS ORDERED: PROPOFOL 200 MG/20 ML VIAL IV ONE (10:00)
[2019-06-05] MEDS ORDERED: LIDOCAINE 100 MG/5 ML SYRINGE ONE (10:00)
[2019-06-05] MEDS: MAGNESIUM OXIDE 400 MG TABLET PO SCH ×3 (13:09→22:13)
[2019-06-05] MEDS: GABAPENTIN 300 MG CAPSULE PO SCH ×3 (13:09→22:12)
[2019-06-05] MEDS: ISOSORBIDE MONONITRATE 60 MG TABLET PO SCH (13:09)
[2019-06-05] MEDS: RANOLAZINE 500 MG TABLET PO SCH ×2 (13:09→22:13)
[2019-06-05] MEDS: ASCORBIC ACID 500 MG TABLET PO SCH (13:10)
[2019-06-05] MEDS: METOPROLOL SUCCINATE XL 25 MG TABLET PO SCH (13:10)
[2019-06-05] MEDS: GEMFIBROZIL 600 MG TABLET PO SCH (13:10)
[2019-06-05] MEDS: sitaGLIPtin 100 MG TABLET PO SCH ×2 (13:10→22:12)
[2019-06-05] MEDS: SPIRONOLACTONE 25 MG TABLET PO SCH (13:11)
[2019-06-05] MEDS: LEVOTHYROXINE 112 MCG TABLET PO SCH (13:11)
[2019-06-05] MEDS ORDERED: BISACODYL 5 MG TABLET PO ONE (13:30)
[2019-06-05] MEDS ORDERED: POLYETHYLENE GLYCOL POWDER 255 GM BOTTLE PO ONE (18:00)
[2019-06-05] MEDS: SODIUM CHLORIDE 0.9% 1,000 ML IV SCH (19:13)
[2019-06-05] MEDS: PANTOPRAZOLE 40 MG VIAL IV SCH (21:55)
[2019-06-05] MEDS: DONEPEZIL 5 MG TABLET PO SCH (22:11)
[2019-06-05] MEDS: TAMSULOSIN 0.4 MG CAPSULE PO SCH (22:11)
[2019-06-05] MEDS: DILTIAZEM CD 180 MG CAPSULE PO SCH (22:12)
[2019-06-05] MEDS: SIMVASTATIN 10 MG TABLET PO SCH (22:12)
[2019-06-05] MEDS: SERTRALINE 25 MG TABLET PO SCH (22:12)
[2019-06-06] MEDS ORDERED: LIDOCAINE 2% 5 ML VIAL ONE (09:00)
[2019-06-06] MEDS ORDERED: ETOMIDATE 20 MG/10 ML VIAL IV ONE (09:00)
[2019-06-06] MEDS ORDERED: PROPOFOL 200 MG/20 ML VIAL IV ONE (09:00)
[2019-06-06] MEDS: SODIUM CHLORIDE 0.9% 1,000 ML IV SCH ×2 (09:29→15:56)
[2019-06-06] MEDS: MAGNESIUM OXIDE 400 MG TABLET PO SCH ×3 (12:16→22:07)
[2019-06-06] MEDS: GABAPENTIN 300 MG CAPSULE PO SCH ×3 (12:17→22:04)
[2019-06-06] MEDS: PANTOPRAZOLE 40 MG VIAL IV SCH ×2 (12:49→21:57)
[2019-06-06] MEDS: ASCORBIC ACID 500 MG TABLET PO SCH (12:49)
[2019-06-06] MEDS: POTASSIUM GLUCONATE 500 MG TABLET PO SCH (12:49)
[2019-06-06] MEDS: RANOLAZINE 500 MG TABLET PO SCH ×2 (12:50→22:05)
[2019-06-06] MEDS: ISOSORBIDE MONONITRATE 60 MG TABLET PO SCH (12:50)
[2019-06-06] MEDS: METOPROLOL SUCCINATE XL 25 MG TABLET PO SCH (12:50)
[2019-06-06] MEDS: sitaGLIPtin 100 MG TABLET PO SCH ×2 (12:51→22:05)
[2019-06-06] MEDS: SPIRONOLACTONE 25 MG TABLET PO SCH (12:51)
[2019-06-06] MEDS: GEMFIBROZIL 600 MG TABLET PO SCH (12:51)
[2019-06-06] MEDS: LEVOTHYROXINE 112 MCG TABLET PO SCH (12:52)
[2019-06-06] MEDS ORDERED: MAGNESIUM CITRATE 300 ML BOTTLE PO ONE (18:00)
[2019-06-06] MEDS: DILTIAZEM CD 180 MG CAPSULE PO SCH (22:03)
[2019-06-06] MEDS: SERTRALINE 25 MG TABLET PO SCH (22:04)
[2019-06-06] MEDS: TAMSULOSIN 0.4 MG CAPSULE PO SCH (22:04)
[2019-06-06] MEDS: SIMVASTATIN 10 MG TABLET PO SCH (22:04)
[2019-06-06] MEDS: DONEPEZIL 5 MG TABLET PO SCH (22:05)
[2019-06-07] MEDS: LEVOTHYROXINE 112 MCG TABLET PO SCH (06:00)
[2019-06-07] MEDS: MAGNESIUM OXIDE 400 MG TABLET PO SCH ×2 (09:09→14:21)
[2019-06-07] MEDS: METOPROLOL SUCCINATE XL 25 MG TABLET PO SCH (09:10)
[2019-06-07] MEDS: GABAPENTIN 300 MG CAPSULE PO SCH ×2 (09:10→14:21)
[2019-06-07] MEDS: ISOSORBIDE MONONITRATE 60 MG TABLET PO SCH (09:10)
[2019-06-07] MEDS: GEMFIBROZIL 600 MG TABLET PO SCH (09:11)
[2019-06-07] MEDS: SPIRONOLACTONE 25 MG TABLET PO SCH (09:11)
[2019-06-07] MEDS: sitaGLIPtin 100 MG TABLET PO SCH (09:11)
[2019-06-07] MEDS: PANTOPRAZOLE 40 MG VIAL IV SCH (09:12)
[2019-06-07] MEDS: ASCORBIC ACID 500 MG TABLET PO SCH (09:12)
[2019-06-07] MEDS: RANOLAZINE 500 MG TABLET PO SCH (09:12)
[2019-06-07 10:16] LABS: Hematocrit 30.4 VOL% (42.0-52.0); Hemoglobin 9.9 GM/DL (14.0-18.0)
[2019-06-07 10:18] LABS: PT Patient Result 11.2 SECS
[2019-06-07 15:54] VITALS: BP 111/58
== END 2019-06-07 17:05 | disposition home or self-care (01) | DRG 813 ==
LOC: N.ED 08:26 → N.EDINP 10:50 → N.2E 12:37
PROVIDERS: ADMIT Family Medicine; ATTEND Family Medicine

== ENCOUNTER 2019-09-03 13:01 | Inpatient (IN) ==
[2019-09-03 14:30] LABS: Apearance,Urine CLEAR (Clear); Bacteria,Urine Moderate /HPF (Few); Bilirubin,Urine Negative (Negative); Blood, Urine Negative (Negative); Glucose,Urine (UA) Negative (Negative); Ketones,Urine Negative (Negative); Mucus,Urine Occasional /LPF (Occasional); Nitrite,Urine Negative (Negative); Protein,Urine Negative; RBC,Urine 3 /HPF (0-4); Squamous Epithelial Cell,Urine Occasional /HPF (0-10); Urine Color Yellow (Yellow); Urine Specific Gravity 1.016 (1.001-1.035); Urine Urobilinogen < 2.0 EU/DL (0.2-1.0); WBC,Urine 51 /HPF (0-6)
[2019-09-03 14:32] LABS: Basophils % 0.6 % (0.0-0.8); Eosinophils % 1.1 % (0.00-10.9); Hematocrit 39.9 VOL% (42.0-52.0); Hemoglobin 13.3 GM/DL (14.0-18.0); Immature Granulocytes % 0.3 %; Immature Granulocytes Absolute 0.01 #; Lymphocytes # 0.5 10*3/uL (1.4-4.0); Lymphocytes % 13.8 % (21.2-54.2); Mean Corpuscular HGB Conc 33.3 GM/DL (32-36); Mean Corpuscular Volume 92.4 FL (87-102); Mean Platelet Volume 9.8 FL (9.6-12.0); Monocytes % 8.8 % (1.7-12.7); Neutrophils % 75.4 % (38.7-73.9); Platelet Count 202 T/CUMM (130-400); Red Blood Count 4.32 MC/CUMM (3.8-5.5); Red Cell Distribution Width 15.2 % (9.3-17.3); White Blood Count 3.5 T/CUMM (4-12)
[2019-09-03 14:33] LABS: Albumin 3.6 G/DL (3.4-5.0); Bilirubin,Total 0.8 MG/DL (0.2-1.0); Calcium 9.3 MG/DL (8.5-10.1); Osmolality,Calculated 284.8 MOS/KG (273-304); Total Protein 8.1 G/DL (6.4-8.3)
[2019-09-03] MEDS ORDERED: SODIUM CHLORIDE 0.9% 1,000 ML IV STA (15:53)
[2019-09-03] MEDS ORDERED: ONDANSETRON 4 MG/2 ML VIAL IV PRN (17:37)
[2019-09-03] MEDS ORDERED: BISACODYL 5 MG TABLET PO PRN (17:37)
[2019-09-03] MEDS ORDERED: ACETAMINOPHEN 325 MG TABLET PO PRN (17:37)
[2019-09-03] MEDS: SODIUM CHLORIDE 0.45% 1,000 ML IV SCH (18:13)
[2019-09-03] MEDS: metroNIDAZOLE INJ 500 MG in PREMIX 1 EACH IV SCH (18:18)
[2019-09-03] MEDS ORDERED: MAGNESIUM SULF RIDER 2 GM in PREMIX 1 EACH IV ONE (20:15)
[2019-09-03] MEDS: DOCUSATE SODIUM 100 MG CAPSULE PO SCH (21:31)
[2019-09-04] MEDS: metroNIDAZOLE INJ 500 MG in PREMIX 1 EACH IV SCH ×3 (01:25→17:45)
[2019-09-04] MEDS ORDERED: NITROGLYCERIN SL 0.4 MG TABLET SL PRN (02:38)
[2019-09-04 05:41] LABS: Basophils % 0.6 % (0.0-0.8); Eosinophils # 0.1 10*3/uL (0.0-0.87); Eosinophils % 3.7 % (0.00-10.9); Hematocrit 34.2 VOL% (42.0-52.0); Hemoglobin 11.6 GM/DL (14.0-18.0); Immature Granulocytes % 0.6 %; Immature Granulocytes Absolute 0.02 #; Lymphocytes # 1.2 10*3/uL (1.4-4.0); Lymphocytes % 32.8 % (21.2-54.2); Mean Corpuscular HGB Conc 33.9 GM/DL (32-36); Mean Corpuscular Volume 93.7 FL (87-102); Mean Platelet Volume 9.9 FL (9.6-12.0); Neutrophils % 51.3 % (38.7-73.9); Platelet Count 172 T/CUMM (130-400); Red Blood Count 3.65 MC/CUMM (3.8-5.5); Red Cell Distribution Width 15.3 % (9.3-17.3); White Blood Count 3.5 T/CUMM (4-12)
[2019-09-04 05:59] LABS: Osmolality,Calculated 286.1 MOS/KG (273-304)
[2019-09-04] MEDS: SODIUM CHLORIDE 0.45% 1,000 ML IV SCH ×2 (06:16→16:24)
[2019-09-04] MEDS: LEVOTHYROXINE 112 MCG TABLET PO SCH (06:21)
[2019-09-04] MEDS: CIPROFLOXACIN INJ 200 MG in PREMIX 1 EACH IV SCH ×2 (08:39→20:41)
[2019-09-04] MEDS: FUROSEMIDE 40 MG TABLET PO SCH ×2 (08:40→20:40)
[2019-09-04] MEDS: MAGNESIUM OXIDE 400 MG TABLET PO SCH ×3 (08:40→20:40)
[2019-09-04] MEDS: METOPROLOL SUCCINATE XL 25 MG TABLET PO SCH (08:40)
[2019-09-04] MEDS: RANOLAZINE 500 MG TABLET PO SCH ×2 (08:40→20:40)
[2019-09-04] MEDS: PANTOPRAZOLE 40 MG TABLET PO SCH (08:40)
[2019-09-04] MEDS: DOCUSATE SODIUM 100 MG CAPSULE PO SCH ×2 (08:40→20:40)
[2019-09-04] MEDS: ISOSORBIDE MONONITRATE 60 MG TABLET PO SCH (08:40)
[2019-09-04] MEDS: GLIMEPIRIDE 2 MG TABLET PO SCH (08:41)
[2019-09-04] MEDS: LORATADINE 10 MG TABLET PO SCH (08:41)
[2019-09-04] MEDS: GABAPENTIN 300 MG CAPSULE PO SCH ×3 (08:41→20:40)
[2019-09-04] MEDS: SPIRONOLACTONE 25 MG TABLET PO SCH (08:41)
[2019-09-04] MEDS: LOSARTAN 25 MG TABLET PO SCH (08:42)
[2019-09-04] MEDS: sitaGLIPtin 25 MG TABLET PO SCH (08:46)
[2019-09-04] MEDS ORDERED: cefTRIAXone 1,000 MG in SYRINGE 1 EACH IV SCH (17:00)
[2019-09-04] MEDS ORDERED: SIMVASTATIN 10 MG TABLET PO SCH (21:00)
[2019-09-04] MEDS ORDERED: SERTRALINE 25 MG TABLET PO SCH (21:00)
[2019-09-04] MEDS ORDERED: DILTIAZEM CD 240 MG CAPSULE PO SCH (21:00)
[2019-09-04] MEDS ORDERED: TAMSULOSIN 0.4 MG CAPSULE PO SCH (21:00)
[2019-09-04] MEDS ORDERED: DONEPEZIL 5 MG TABLET PO SCH (21:00)
[2019-09-05] MEDS: metroNIDAZOLE INJ 500 MG in PREMIX 1 EACH IV SCH ×2 (01:29→09:49)
[2019-09-05] MEDS: LEVOTHYROXINE 112 MCG TABLET PO SCH (06:00)
[2019-09-05] MEDS ORDERED: NEOMYCIN/POLYMYXIN IRRIG SOLN 1 ML AMP BLADDERIRR ONE (09:16)
[2019-09-05] MEDS ORDERED: LIDOCAINE 2% TOP JELLY 20 ML VIAL INTRAURETH ONE (09:17)
[2019-09-05] MEDS: CIPROFLOXACIN INJ 200 MG in PREMIX 1 EACH IV SCH (09:27)
[2019-09-05] MEDS: ISOSORBIDE MONONITRATE 60 MG TABLET PO SCH (09:29)
[2019-09-05] MEDS: METOPROLOL SUCCINATE XL 25 MG TABLET PO SCH (09:29)
[2019-09-05] MEDS: RANOLAZINE 500 MG TABLET PO SCH (09:29)
[2019-09-05] MEDS ORDERED: TRIAMCINOLONE ACETONIDE 40 MG/1 ML VIAL ONE (09:41)
[2019-09-05] MEDS: SPIRONOLACTONE 25 MG TABLET PO SCH (09:48)
[2019-09-05] MEDS: LORATADINE 10 MG TABLET PO SCH (09:48)
[2019-09-05] MEDS: LOSARTAN 25 MG TABLET PO SCH (09:48)
[2019-09-05] MEDS: GLIMEPIRIDE 2 MG TABLET PO SCH (09:48)
[2019-09-05] MEDS: sitaGLIPtin 25 MG TABLET PO SCH (09:48)
[2019-09-05] MEDS: FUROSEMIDE 40 MG TABLET PO SCH (09:48)
[2019-09-05] MEDS: MAGNESIUM OXIDE 400 MG TABLET PO SCH ×2 (09:48→15:30)
[2019-09-05] MEDS: DOCUSATE SODIUM 100 MG CAPSULE PO SCH (09:48)
[2019-09-05] MEDS: PANTOPRAZOLE 40 MG TABLET PO SCH (09:49)
[2019-09-05] MEDS: GABAPENTIN 300 MG CAPSULE PO SCH ×2 (09:49→15:30)
[2019-09-05] MEDS ORDERED: TOBRAMYCIN 80 MG/2 ML VIAL ONE (10:31)
[2019-09-05] MEDS ORDERED: PHENAZOPYRIDINE 95 MG TABLET PO SCH (12:00)
[2019-09-05] MEDS: SODIUM CHLORIDE 0.45% 1,000 ML IV SCH ×2 (13:25→19:49)
[2019-09-05 19:52] VITALS: BP 112/66
== END 2019-09-05 16:44 | disposition home or self-care (01) | DRG 988 ==
LOC: N.ED 13:01 → N.EDINP 16:13 → N.3E 17:36
PROVIDERS: ADMIT Family Medicine; ATTEND Family Medicine

== ENCOUNTER 2020-03-28 16:07 | Inpatient (IN) ==
[2020-03-28] MEDS ORDERED: ONDANSETRON 4 MG/2 ML VIAL IV PRN (16:12)
[2020-03-28] MEDS ORDERED: ACETAMINOPHEN 325 MG TABLET PO PRN (16:12)
[2020-03-28] MEDS ORDERED: HYDROmorphone 2 MG/1 ML VIAL IV PRN (16:12)
[2020-03-28] MEDS ORDERED: GLUCAGON 1 MG VIAL IM PRN (16:19)
[2020-03-28] MEDS ORDERED: DEXTROSE 50% 25 GM/50 ML VIAL IV PRN (16:19)
[2020-03-28 17:24] LABS: Basophils % 0.3 % (0.0-0.8); Eosinophils % 0.3 % (0.00-10.9); Hematocrit 49.5 VOL% (42.0-52.0); Hemoglobin 17.4 GM/DL (14.0-18.0); Immature Granulocytes % 0.6 %; Immature Granulocytes Absolute 0.04 #; Lymphocytes # 0.9 10*3/uL (1.4-4.0); Lymphocytes % 13.7 % (21.2-54.2); Mean Corpuscular HGB Conc 35.2 GM/DL (32-36); Mean Corpuscular Volume 89.5 FL (87-102); Mean Platelet Volume 9.7 FL (9.6-12.0); Neutrophils % 75.1 % (38.7-73.9); Platelet Count 229 T/CUMM (130-400); Red Blood Count 5.53 MC/CUMM (3.8-5.5); Red Cell Distribution Width 15.5 % (9.3-17.3); White Blood Count 6.2 T/CUMM (4-12)
[2020-03-28 17:43] LABS: Albumin 3.8 G/DL (3.4-5.0); Osmolality,Calculated 280.1 MOS/KG (273-304)
[2020-03-28] MEDS ORDERED: NITROGLYCERIN SL 0.4 MG TABLET SL PRN (17:53)
[2020-03-28] MEDS: SODIUM CHLORIDE 0.9% 1,000 ML IV SCH (18:20)
[2020-03-28] MEDS: INSULIN LISPRO 100 UNIT/ML SUBCUT SCH ×2 (18:45→22:13)
[2020-03-28] MEDS ORDERED: ENOXAPARIN 30 MG/0.3 ML SYRINGE SUBCUT SCH (21:00)
[2020-03-28] MEDS: DOCUSATE SODIUM 100 MG CAPSULE PO SCH (22:14)
[2020-03-28] MEDS: RANOLAZINE 500 MG TABLET PO SCH (22:15)
[2020-03-29 01:07] LABS: Apearance,Urine Slightly Hazy (Clear); Bilirubin,Urine Negative (Negative); Blood, Urine Negative (Negative); Glucose,Urine (UA) Negative (Negative); Hyaline Casts,Urine 157 /LPF (0-3); Ketones,Urine Negative (Negative); Mucus,Urine Moderate /LPF (Occasional); Nitrite,Urine Negative (Negative); Protein,Urine 100 MG/DL; RBC,Urine 13 /HPF (0-4); Renal Epithelial Cells,Urine Occasional /HPF (<1); Squamous Epithelial Cell,Urine Occasional /HPF (0-10); Urine Color Amber (Yellow); Urine Specific Gravity 1.019 (1.001-1.035); Urine Urobilinogen < 2.0 EU/DL (0.2-1.0); WBC,Urine 3 /HPF (0-6)
[2020-03-29] MEDS: SODIUM CHLORIDE 0.9% 1,000 ML IV SCH (07:09)
[2020-03-29] MEDS: INSULIN LISPRO 100 UNIT/ML SUBCUT SCH (07:14)
[2020-03-29] MEDS ORDERED: PANTOPRAZOLE 40 MG TABLET PO SCH (09:00)
[2020-03-29] MEDS: DOCUSATE SODIUM 100 MG CAPSULE PO SCH (09:25)
[2020-03-29] MEDS: RANOLAZINE 500 MG TABLET PO SCH (09:26)
[2020-03-29 11:38] VITALS: BP 135/91
== END 2020-03-29 13:19 | disposition home or self-care (01) | DRG 392 ==
LOC: N.3E 16:28
PROVIDERS: ADMIT Family Medicine; ATTEND Family Medicine

== ENCOUNTER 2020-03-30 21:28 | Inpatient (IN) ==
[2020-03-30] MEDS ORDERED: SODIUM CHLORIDE 0.9% 1,000 ML IV STA (21:42)
[2020-03-30 21:50] LABS: Basophils % 0.6 % (0.0-0.8); Eosinophils # 0.1 10*3/uL (0.0-0.87); Eosinophils % 1.4 % (0.00-10.9); Hematocrit 44.2 VOL% (42.0-52.0); Immature Granulocytes % 0.9 %; Immature Granulocytes Absolute 0.03 #; Lymphocytes # 0.8 10*3/uL (1.4-4.0); Lymphocytes % 24.2 % (21.2-54.2); Mean Corpuscular HGB Conc 33.9 GM/DL (32-36); Mean Corpuscular Volume 92.1 FL (87-102); Mean Platelet Volume 9.6 FL (9.6-12.0); Neutrophils % 59.9 % (38.7-73.9); Platelet Count 191 T/CUMM (130-400); Red Cell Distribution Width 15.3 % (9.3-17.3); White Blood Count 3.5 T/CUMM (4-12)
[2020-03-30 22:09] LABS: Albumin 3.3 G/DL (3.4-5.0); Bilirubin,Total 0.6 MG/DL (0.2-1.0); Calcium 8.7 MG/DL (8.5-10.1); Osmolality,Calculated 273.8 MOS/KG (273-304); Total Protein 7.7 G/DL (6.4-8.3)
[2020-03-30] MEDS ORDERED: ONDANSETRON 4 MG/2 ML VIAL IV ONE (22:12)
[2020-03-30] MEDS ORDERED: MORPHINE 4 MG/1 ML VIAL IV STA (22:12)
[2020-03-30 22:30] LABS: Apearance,Urine CLEAR (Clear); Bacteria,Urine Occasional /HPF (Few); Bilirubin,Urine Negative (Negative); Blood, Urine Negative (Negative); Glucose,Urine (UA) Negative (Negative); Ketones,Urine Negative (Negative); Nitrite,Urine Negative (Negative); Protein,Urine 30 MG/DL; RBC,Urine 1 /HPF (0-4); Urine Color Yellow (Yellow); Urine Specific Gravity 1.015 (1.001-1.035); Urine Urobilinogen < 2.0 EU/DL (0.2-1.0); WBC,Urine 1 /HPF (0-6)
[2020-03-31] MEDS ORDERED: ONDANSETRON 4 MG/2 ML VIAL IV PRN (02:09)
[2020-03-31] MEDS ORDERED: ACETAMINOPHEN 325 MG TABLET PO PRN (02:09)
[2020-03-31] MEDS ORDERED: GLUCAGON 1 MG VIAL IM PRN (04:56)
[2020-03-31] MEDS ORDERED: DEXTROSE 50% 25 GM/50 ML VIAL IV PRN (04:56)
[2020-03-31 06:23] LABS: Basophils % 0.6 % (0.0-0.8); Eosinophils # 0.1 10*3/uL (0.0-0.87); Eosinophils % 2.3 % (0.00-10.9); Hematocrit 41.6 VOL% (42.0-52.0); Immature Granulocytes % 0.6 %; Immature Granulocytes Absolute 0.03 #; Lymphocytes # 1.3 10*3/uL (1.4-4.0); Lymphocytes % 26.9 % (21.2-54.2); Mean Corpuscular HGB Conc 33.7 GM/DL (32-36); Mean Corpuscular Volume 93.1 FL (87-102); Monocytes % 11.4 % (1.7-12.7); Neutrophils % 58.2 % (38.7-73.9); Platelet Count 182 T/CUMM (130-400); Red Blood Count 4.47 MC/CUMM (3.8-5.5); Red Cell Distribution Width 15.2 % (9.3-17.3); White Blood Count 4.7 T/CUMM (4-12)
[2020-03-31 06:36] LABS: Bilirubin,Total 1.2 MG/DL (0.2-1.0); Calcium 8.4 MG/DL (8.5-10.1); Osmolality,Calculated 274.7 MOS/KG (273-304); Total Protein 7.2 G/DL (6.4-8.3)
[2020-03-31 07:31] LABS: Band Neutrophils 19 % (0-10); Eosinophils 2 % (0-10); Lymphocytes 26 % (20-55); Nucleated Red Blood Cells 15 (0-5); Segmented Neutrophils 42 % (50-85); Total Cells Counted 100
[2020-03-31 07:32] LABS: Hypochromasia 2+; Platelet Estimate Normal
[2020-03-31] MEDS: INSULIN REGULAR 100 UNIT/ML SUBCUT SCH ×4 (08:46→21:44)
[2020-03-31] MEDS ORDERED: NITROGLYCERIN SL 0.4 MG TABLET SL PRN (11:14)
[2020-03-31] MEDS ORDERED: LORATADINE 10 MG TABLET PO PRN (11:16)
[2020-03-31] MEDS: DOCUSATE SODIUM 100 MG CAPSULE PO SCH ×2 (11:48→21:43)
[2020-03-31] MEDS: PANTOPRAZOLE 40 MG TABLET PO SCH (11:49)
[2020-03-31] MEDS: GLIMEPIRIDE 2 MG TABLET PO SCH (11:49)
[2020-03-31] MEDS: ASCORBIC ACID 500 MG TABLET PO SCH (11:49)
[2020-03-31] MEDS: DONEPEZIL 10 MG TABLET PO SCH (11:50)
[2020-03-31] MEDS: SPIRONOLACTONE 25 MG TABLET PO SCH (11:50)
[2020-03-31] MEDS: METOPROLOL SUCCINATE XL 25 MG TABLET PO SCH (11:50)
[2020-03-31] MEDS: sitaGLIPtin 100 MG TABLET PO SCH (11:50)
[2020-03-31] MEDS: ISOSORBIDE MONONITRATE 60 MG TABLET PO SCH (11:50)
[2020-03-31] MEDS: GABAPENTIN 300 MG CAPSULE PO SCH ×2 (16:15→21:42)
[2020-03-31] MEDS: MAGNESIUM OXIDE 400 MG TABLET PO SCH ×2 (16:15→21:43)
[2020-03-31] MEDS: gemfibroziL 600 MG TABLET PO SCH (16:15)
[2020-03-31] MEDS ORDERED: SIMVASTATIN 20 MG TABLET PO SCH (21:00)
[2020-03-31] MEDS ORDERED: DILTIAZEM CD 240 MG CAPSULE PO SCH (21:00)
[2020-03-31] MEDS ORDERED: SERTRALINE 25 MG TABLET PO SCH (21:00)
[2020-03-31] MEDS: RANOLAZINE 500 MG TABLET PO SCH (21:43)
[2020-04-01] MEDS ORDERED: LEVOTHYROXINE 112 MCG TABLET PO SCH (06:30)
[2020-04-01] MEDS: INSULIN REGULAR 100 UNIT/ML SUBCUT SCH ×2 (07:32→11:55)
[2020-04-01] MEDS ORDERED: POTASSIUM GLUCONATE 500 MG TABLET PO SCH (09:00)
[2020-04-01] MEDS ORDERED: DEXTROSE 10% 250 ML BAG IV PRN (09:52)
[2020-04-01] MEDS ORDERED: GLUCAGON 1 MG VIAL IM PRN (09:52)
[2020-04-01] MEDS: DOCUSATE SODIUM 100 MG CAPSULE PO SCH (09:53)
[2020-04-01] MEDS: gemfibroziL 600 MG TABLET PO SCH (09:53)
[2020-04-01] MEDS: SPIRONOLACTONE 25 MG TABLET PO SCH (09:54)
[2020-04-01] MEDS: MAGNESIUM OXIDE 400 MG TABLET PO SCH (09:54)
[2020-04-01] MEDS: PANTOPRAZOLE 40 MG TABLET PO SCH (09:54)
[2020-04-01] MEDS: sitaGLIPtin 100 MG TABLET PO SCH (09:54)
[2020-04-01] MEDS: ASCORBIC ACID 500 MG TABLET PO SCH (09:54)
[2020-04-01] MEDS: GABAPENTIN 300 MG CAPSULE PO SCH (09:54)
[2020-04-01] MEDS: GLIMEPIRIDE 2 MG TABLET PO SCH (09:54)
[2020-04-01] MEDS: DONEPEZIL 10 MG TABLET PO SCH (09:54)
[2020-04-01] MEDS: RANOLAZINE 500 MG TABLET PO SCH (09:55)
[2020-04-01] MEDS: ISOSORBIDE MONONITRATE 60 MG TABLET PO SCH (09:55)
[2020-04-01] MEDS: METOPROLOL SUCCINATE XL 25 MG TABLET PO SCH (09:55)
[2020-04-01 11:58] VITALS: BP 146/80
[2020-04-01] MEDS ORDERED: TAMSULOSIN 0.4 MG CAPSULE PO SCH (21:00)
== END 2020-04-01 13:49 | disposition home or self-care (01) | DRG 389 ==
LOC: EDBD → EDUNIT# → N.ED 21:28 → N.EDINP 03-31 01:42 → N.TELES 03-31 02:09
PROVIDERS: ADMIT Family Medicine; ATTEND Family Medicine

== ENCOUNTER 2021-07-10 08:16 | Inpatient (IN) ==
[2021-07-10] MEDS ORDERED: SODIUM CHLORIDE 0.9% 1,000 ML IV STA (08:58)
[2021-07-10] MEDS ORDERED: ONDANSETRON 4 MG/2 ML VIAL IV STA (08:58)
[2021-07-10 09:25] LABS: Basophils % 0.4 % (0.0-0.8); Eosinophils % 0.6 % (0.00-10.9); Hematocrit 43.5 VOL% (42.0-52.0); Hemoglobin 14.9 GM/DL (14.0-18.0); Immature Granulocytes % 0.4 %; Immature Granulocytes Absolute 0.02 #; Lymphocytes # 0.5 10*3/uL (1.4-4.0); Lymphocytes % 8.8 % (21.2-54.2); Mean Corpuscular HGB Conc 34.3 GM/DL (32-36); Mean Corpuscular Volume 92.6 FL (87-102); Mean Platelet Volume 9.3 FL (9.6-12.0); Monocytes % 9.9 % (1.7-12.7); Neutrophils % 79.9 % (38.7-73.9); Platelet Count 208 T/CUMM (130-400); Red Cell Distribution Width 14.9 % (9.3-17.3); White Blood Count 5.1 T/CUMM (4-12)
[2021-07-10 09:45] LABS: Albumin 4.1 G/DL (3.4-5.0); Bilirubin,Total 1.6 MG/DL (0.20-1.00); Calcium 9.4 MG/DL (8.5-10.1); Osmolality,Calculated 283.1 MOS/KG (273-304); Potassium 4.3 MMOL/L (3.5-5.1); Total Protein 8.6 G/DL (6.4-8.2)
[2021-07-10] MEDS ORDERED: MORPHINE 2 MG/1 ML SYRINGE IV PRN (10:26)
[2021-07-10] MEDS ORDERED: ONDANSETRON 4 MG/2 ML VIAL IV PRN ×2 (10:26→12:59)
[2021-07-10] MEDS ORDERED: ALBUTEROL/IPRATROPIUM 3 ML NEB RESP TX PRN (10:26)
[2021-07-10] MEDS ORDERED: ACETAMINOPHEN 325 MG TABLET PO PRN ×2 (10:26→12:59)
[2021-07-10] MEDS: PANTOPRAZOLE 40 MG VIAL IV SCH (10:46)
[2021-07-10] MEDS ORDERED: HYDROmorphone 2 MG/1 ML VIAL IV PRN (12:59)
[2021-07-10] MEDS: SODIUM CHLORIDE 0.9% 1,000 ML IV SCH ×2 (13:40→22:03)
[2021-07-10] MEDS ORDERED: INFLUENZA VIRUS VACCINE 0.5 ML SYRINGE IM ONE (13:48)
[2021-07-10] MEDS: MORPHINE 2 MG/1 ML SYRINGE IV PRN (14:05)
[2021-07-10] MEDS: LACTATED RINGERS 1,000 ML IV SCH (17:04)
[2021-07-10 20:18] LABS: Bilirubin,Urine Negative (Negative); Blood, Urine Negative (Negative); Glucose,Urine (UA) 50 mg/dL (Negative); Ketones,Urine 5 mg/dL (Negative); Nitrite,Urine Negative (Negative); Protein,Urine 100 MG/DL; RBC,Urine 3 /HPF (0-4); Squamous Epithelial Cell,Urine Occasional /HPF (0-10); Urine Appearance CLEAR (Clear); Urine Color Yellow (Yellow); Urine Specific Gravity 1.015 (1.001-1.035); Urine Urobilinogen < 2.0 EU/DL (0.2-1.0)
[2021-07-10] MEDS: DOCUSATE SODIUM 100 MG CAPSULE PO SCH (21:36)
[2021-07-11] MEDS: MORPHINE 2 MG/1 ML SYRINGE IV PRN (04:37)
[2021-07-11] MEDS ORDERED: NITROGLYCERIN SL 0.4 MG TABLET SL ONE (04:39)
[2021-07-11] MEDS ORDERED: ALUM/MAG/SIMETH/LIDO VISC 1:1 30 ML BOTTLE PO STA (04:50)
[2021-07-11 04:54] LABS: Basophils % 0.6 % (0.0-0.8); Eosinophils # 0.2 10*3/uL (0.0-0.87); Eosinophils % 3.7 % (0.00-10.9); Hematocrit 38.9 VOL% (42.0-52.0); Hemoglobin 12.6 GM/DL (14.0-18.0); Immature Granulocytes % 0.6 %; Immature Granulocytes Absolute 0.03 #; Lymphocytes # 0.9 10*3/uL (1.4-4.0); Lymphocytes % 17.9 % (21.2-54.2); Mean Corpuscular HGB Conc 32.4 GM/DL (32-36); Mean Corpuscular Volume 96.8 FL (87-102); Mean Platelet Volume 9.1 FL (9.6-12.0); Monocytes % 13.8 % (1.7-12.7); Neutrophils % 63.4 % (38.7-73.9); Platelet Count 189 T/CUMM (130-400); Red Blood Count 4.02 MC/CUMM (3.8-5.5); Red Cell Distribution Width 15.1 % (9.3-17.3); White Blood Count 5.1 T/CUMM (4-12)
[2021-07-11] MEDS: SODIUM CHLORIDE 0.9% 1,000 ML IV SCH ×2 (05:15→12:54)
[2021-07-11 05:25] LABS: Calcium 8.4 MG/DL (8.5-10.1); Osmolality,Calculated 284.4 MOS/KG (273-304); Potassium 4.6 MMOL/L (3.5-5.1)
[2021-07-11 05:27] LABS: Albumin 3.3 G/DL (3.4-5.0); Bilirubin,Total 0.7 MG/DL (0.20-1.00); Calcium 8.6 MG/DL (8.5-10.1); Osmolality,Calculated 282.5 MOS/KG (273-304); Potassium 4.8 MMOL/L (3.5-5.1)
[2021-07-11] MEDS ORDERED: ENOXAPARIN 40 MG/0.4 ML SYRINGE SUBCUT SCH (06:00)
[2021-07-11] MEDS: PANTOPRAZOLE 40 MG VIAL IV SCH (08:04)
[2021-07-11] MEDS: DOCUSATE SODIUM 100 MG CAPSULE PO SCH (08:05)
[2021-07-11] MEDS: LACTATED RINGERS 1,000 ML IV SCH (08:30)
[2021-07-11] MEDS ORDERED: PANTOPRAZOLE 40 MG TABLET PO SCH (09:00)
[2021-07-11 11:58] VITALS: BP 126/77
== END 2021-07-11 17:49 | disposition home or self-care (01) | DRG 389 ==
LOC: N.ED 08:16 → N.4E 09:58
PROVIDERS: ADMIT Family Medicine; ATTEND Family Medicine